=== PATIENT | female | born 1945 | race Caucasian/White ===

== ENCOUNTER 2016-04-25 10:48 | Inpatient (IN) ==
--- NOTE | 2016-04-25 11:00 | Emergency Department Note ---
Disposition Clinical Impression: Acute kidney injury Congestive heart failure Qualifiers: Congestive heart failure type: unspecified congestive heart failure type Congestive heart failure chronicity: acute Qualified Code(s): I50.9 - Heart failure, unspecified Chest pain Qualifiers: Chest pain type: unspecified Qualified Code(s): R07.9 - Chest pain, unspecified Disposition: Admitted As Inpatient Condition: Fair Referrals: Polina Crawford MD [Primary Care Provider] - Forms: ED Satisfaction Letter Time of Disposition: 12:37 SOB HPI - General Chief Complaint: ED Shortness of Breath/Dyspnea Stated Complaint: NICANOR, edema Time Seen by Provider: 04/25/16 10:55 Source: patient Limitations: no limitations Nursing Notes Reviewed: Yes Vital Signs Reviewed: Yes - History of Present Illness 70-year-old who comes in complaining of increasing shortness of breath for the last couple of days. The patient has had some left-sided chest discomfort intermittently. She has noted increase in her weight and swelling of her lower extremities. The patient states he has not had any recent cardiac evaluation. Pt Subjective Complaint: shortness of breath Onset (ago): day(s) Context: recent illness Severity: moderate Consistency/Duration: constant Improves with: nothing Worsens with: exertion Known history of: congestive heart failure Associated symptoms: Reports: chest pain Cough present: Yes Cough Description: Involuntary Cough Frequency: Intermittent - Related Data Home Medications Medication Instructions Recorded Confirmed Albuterol Sulfate [Proair HFA] 2 puff IH Q4HR 12/18/14 12/18/14 Aspirin Enteric Coated [Aspirin EC] 81 mg PO QAM 12/18/14 12/18/14 Atorvastatin [Lipitor] 40 mg PO QPM 12/18/14 12/18/14 Budesonide/Formoterol 160/4.5 2 puff IH BID 12/18/14 12/18/14 [Symbicort] Cholecalciferol (Vitamin D3) 2,000 unit PO QAM 12/18/14 12/18/14 [Vitamin D] Diltiazem CD (24hr) [Cardizem CD] 240 mg PO QAM 12/18/14 12/18/14 Hydrochlorothiazide [Microzide] 12.5 mg PO QAM 12/18/14 12/18/14 Insulin Glargine,Hum.rec.anlog 50 unit SQ HS 12/18/14 12/18/14 [Lantus Solostar] Insulin Glargine,Hum.rec.anlog 60 unit SQ QAM 12/18/14 12/18/14 [Lantus Solostar] Insulin LISPRO [Humalog Kwikpen] 45 - 50 unit SQ BIDWM 12/18/14 12/18/14 Labetalol [Trandate] 100 mg PO QAM 12/18/14 12/18/14 Labetalol [Trandate] 200 mg PO HS 12/18/14 12/18/14 Montelukast [Singulair] 10 mg PO QPM 12/18/14 12/18/14 SitaGLIPtin [Januvia] 50 mg PO QPM 12/18/14 12/18/14 Previous Rx's Medication Instructions Recorded Levofloxacin [Levaquin] 250 mg PO DAILY #7 tablet 12/20/14 Allergies Allergy/AdvReac Type Severity Reaction Status Date / Time acetaminophen [From Percocet] AdvReac Nausea Verified 04/25/16 10:54 hydrocodone AdvReac Nausea Verified 04/25/16 10:54 Oxycodone [From Percocet] AdvReac Nausea Verified 04/25/16 10:54 propoxyphene [From Darvon] AdvReac Nausea Verified 04/25/16 10:53 Sulfa (Sulfonamide AdvReac Nausea Verified 04/25/16 10:53 Antibiotics) Constitutional: Denies: fever, chills, weakness, weight change Eyes: Denies: eye pain, eye discharge, vision change ENT ED: Denies: ear pain, throat pain, dental pain, hearing loss, epistaxis, congestion, dysphagia Cardiovascular: Reports: chest pain, dyspnea on exertion. Denies: palpitations , edema, syncope Respiratory: Reports: dyspnea. Denies: cough, wheezes, hemoptysis, stridor Gastrointestinal: Denies: abdominal pain, nausea, vomiting, diarrhea, constipation, hematemesis, melena, hematochezia Genitourinary: Denies: dysuria, frequency, hematuria, discharge Musculoskeletal: Denies: back pain, neck pain, arthralgia, myalgia Integumentary: Denies: rash, abrasion, lesions Neurological: Denies: headache, weakness, numbness, paresthesias, confusion, abnormal gait, vertigo Psychiatric: Denies: anxiety, depression, suicidal thoughts, homicidal thoughts , auditory hallucinations, visual hallucinations Endocrine: Denies: fatigue Hematological/Lymphatic: Denies: easy bleeding, easy bruising Allergic/Immunologic: Denies: facial swelling, urticaria Past Medical History - Past Medical History Medical history: Reports: asthma, CHF, diabetes, hyperlipidemia, hypertension Surgical history: Reports: , hysterectomy Psychiatric history: Reports: no psych history - Social History Smoking Status: Never smoker Smokeless Tobacco Status: No Alcohol use: Reports: rarely Drug use: Reports: none Physical Exam - General Limitations: no limitations General appearance: alert, in no apparent distress - Head Head exam: atraumatic, normocephalic, normal inspection - Eye Eye exam: Present: normal appearance, PERRL, EOMI - ENT ENT exam: normal exam, normal oropharynx, mucous membranes moist - Neck Neck exam: Present: normal inspection, full ROM, trachea midline - Chest Chest inspection: Present: normal inspection, symmetric chest wall rise - Respiratory Respiratory exam: Present: wheezes (Patient will), accessory muscle use, prolonged expiratory phase, other (Diminished) - Cardiovascular Cardiovascular exam: Present: regular rate, normal rhythm, normal heart sounds - Abdominal Exam Abdominal exam: Present: soft, Non-Tender. Absent: tenderness, distention, guarding, rebound, rigidity - Extremities Exam Extremities exam: Present: pedal edema - Expanded Lower Extremity Exam Neurovascular/Tendon exam: Absent: motor deficit, sensory deficit, tendon deficit Gait: not tested/not observed - Back Exam Back exam: Present: normal inspection, full ROM. Absent: tenderness - Neurological Exam Neurological exam: Present: alert, oriented X3 - Psychiatric Psychiatric exam: Present: normal affect, normal mood - Skin Skin exam: Present: warm, dry, intact, normal color Course - Reevaluation(s) Reevaluation #1: 70-year-old with history CHF was had some problems with worsening renal failure and was told not to take as much Lasix as any increasing lower extremity edema and increasing shortness of breath. She also has had some chest discomfort no recent workup of cardiac origin. Workup here shows that she does indeed have some significant peripheral edema her chest x-ray shows mild CHF BNP is slightly elevated. We will admit to rule out his chest pain CHF renal insufficiency. Time: 12:36 - Consultations Consultation #1: Discussed with , admit. Time: 12:35 Vital Signs Temperature 98.6 F 04/25/16 10:50 Pulse Rate 80 04/25/16 10:50 Respiratory Rate 18 04/25/16 10:50 Blood Pressure 155/75 04/25/16 10:50 O2 Sat by Pulse Oximetry 94 L 04/25/16 10:50 Temperature 98.6 F 04/25/16 10:50 Pulse Rate 80 04/25/16 11:03 Respiratory Rate 18 04/25/16 10:50 Blood Pressure 142/67 04/25/16 11:03 O2 Sat by Pulse Oximetry 97 04/25/16 11:03 Oxygen Delivery Oxygen Delivery Nasal Cannula Shortness of Breath/Dyspnea - Lab Data Result diagrams: 04/25/16 11:05 04/25/16 11:05 Lab Results 04/25/16 04/25/16 04/25/16 Range/Units 11:05 11:05 11:05 WBC 10.2 (4.3-11.1) K/mcL RBC 3.40 L (3.82-4.97) M/mcL Hgb 9.3 L (11.5-15.4) g/dL Hct 30.8 L (35.3-44.9) % MCV 90.6 (83.0-100.0) fL MCH 27.4 L (28.0-33.3) pg MCHC 30.2 L (31.6-35.5) g/dL RDW 17.9 H (11.5-14.5) % Plt Count 216 (140-400) K/mcL MPV 10.2 (9.4-12.4) fL Immature Gran % 0.5 (0-4) % Seg Neutrophils % 81.7 % Lymphocytes % 8.8 % Monocytes % 5.8 % Eosinophils % 3.0 % Basophils % 0.2 % Neutrophils # 8.3 (1.6-8.9) K/mcL Lymphocytes # 0.9 (0.6-4.6) K/mcL Monocytes # 0.6 (0.0-1.3) K/mcL Eosinophils # 0.3 (0.0-0.6) K/mcL Basophils # 0.0 (0.0-0.2) K/mcL PT 12.7 H (9.4-12.1) Seconds INR 1.2 APTT 44.5 H (26.0-36.0) Seconds Sodium 142 (136-145) mEq/L Potassium 4.8 H (3.5-4.5) mEq/L Chloride 109 (98-109) mEq/L Carbon Dioxide 23 (19-29) mEq/L BUN 51 H (7-20) mg/dL Creatinine 2.77 H (0.57-1.11) mg/dL Est GFR ( Amer) 20 L (> 60) Est GFR (Non-Af Amer) 17 L (> 60) BUN/Creatinine Ratio 18 (6-26) Glucose 137 H (70-99) mg/dL Calculated Osmolality 310 H (280-300) Calcium 9.2 (8.6-10.8) mg/dL Troponin I (0-0.03) ng/mL B-Natriuretic Peptide (0-100) pg/mL Urine Color (Yellow) Urine Clarity (Clear) Urine pH (5.0-8.0) pH Units Ur Specific Archer (1.010-1.025) Urine Protein (Neg-Trace) mg/dL Urine Glucose (UA) (Normal) mg/dL Urine Ketones (Negative) mg/dL Urine Blood (Negative) Urine Nitrite (Negative) Urine Bilirubin (Negative) Urine Urobilinogen (Normal) mg/dL Ur Leukocyte Esterase (Negative) Urine Microscopic RBC (0-3) per hpf Urine Microscopic WBC (0-3) per hpf Ur Squamous Epith Cells (None-Few) per lpf Urine Bacteria (None-Few) per hpf Hyaline Casts (None-Few) per lpf Ur Culture Indicated? (NO) 04/25/16 04/25/16 04/25/16 Range/Units 11:05 11:05 11:38 WBC (4.3-11.1) K/mcL RBC (3.82-4.97) M/mcL Hgb (11.5-15.4) g/dL Hct (35.3-44.9) % MCV (83.0-100.0) fL MCH (28.0-33.3) pg MCHC (31.6-35.5) g/dL RDW (11.5-14.5) % Plt Count (140-400) K/mcL MPV (9.4-12.4) fL Immature Gran % (0-4) % Seg Neutrophils % % Lymphocytes % % Monocytes % % Eosinophils % % Basophils % % Neutrophils # (1.6-8.9) K/mcL Lymphocytes # (0.6-4.6) K/mcL Monocytes # (0.0-1.3) K/mcL Eosinophils # (0.0-0.6) K/mcL Basophils # (0.0-0.2) K/mcL PT (9.4-12.1) Seconds INR APTT (26.0-36.0) Seconds Sodium (136-145) mEq/L Potassium (3.5-4.5) mEq/L Chloride (98-109) mEq/L Carbon Dioxide (19-29) mEq/L BUN (7-20) mg/dL Creatinine (0.57-1.11) mg/dL Est GFR ( Amer) (> 60) Est GFR (Non-Af Amer) (> 60) BUN/Creatinine Ratio (6-26) Glucose (70-99) mg/dL Calculated Osmolality (280-300) Calcium (8.6-10.8) mg/dL Troponin I 0.01 (0-0.03) ng/mL B-Natriuretic Peptide 148 H (0-100) pg/mL Urine Color Yellow (Yellow) Urine Clarity Cloudy A (Clear) Urine pH 6.0 (5.0-8.0) pH Units Ur Specific Archer 1.011 (1.010-1.025) Urine Protein 100 H (Neg-Trace) mg/dL Urine Glucose (UA) Normal (Normal) mg/dL Urine Ketones Negative (Negative) mg/dL Urine Blood Small H (Negative) Urine Nitrite Negative (Negative) Urine Bilirubin Negative (Negative) Urine Urobilinogen Normal (Normal) mg/dL Ur Leukocyte Esterase Trace H (Negative) Urine Microscopic RBC 5-15 H (0-3) per hpf Urine Microscopic WBC 5-15 H (0-3) per hpf Ur Squamous Epith Cells Many H (None-Few) per lpf Urine Bacteria None Seen (None-Few) per hpf Hyaline Casts None Seen (None-Few) per lpf Ur Culture Indicated? YES A (NO) - EKG Data EKG attestation: Yes I reviewed and interpreted this EKG. EKG shows normal: Reports: sinus rhythm Rate: Reports: normal Rhythm: Reports: NSR Interpretation: Reports: no acute changes
[2016-04-25 11:26] LABS: Basophils % 0.2 %; Eosinophils # 0.3 K/mcL (0.0-0.6); Hematocrit 30.8 % (35.3-44.9); Hemoglobin 9.3 g/dL (11.5-15.4); Immature Granulocytes % 0.5 % (0-4); Lymphocytes # 0.9 K/mcL (0.6-4.6); Lymphocytes % 8.8 %; Mean Corpuscular HGB Conc 30.2 g/dL (31.6-35.5); Mean Corpuscular Hemoglobin 27.4 pg (28.0-33.3); Mean Corpuscular Volume 90.6 fL (83.0-100.0); Mean Platelet Volume 10.2 fL (9.4-12.4); Monocytes # 0.6 K/mcL (0.0-1.3); Monocytes % 5.8 %; Neutrophils # 8.3 K/mcL (1.6-8.9); Platelet Count 216 K/mcL (140-400); Red Cell Distribution Width 17.9 % (11.5-14.5); Segmented Neutrophils % 81.7 %
[2016-04-25 11:32] LABS: INR 1.2; Prothrombin Time 12.7 Seconds (9.4-12.1)
[2016-04-25 11:35] LABS: Activated Partial Thrombo Time 44.5 Seconds (26.0-36.0)
[2016-04-25 11:37] LABS: Calcium 9.2 mg/dL (8.6-10.8); Potassium 4.8 mEq/L (3.5-4.5)
[2016-04-25 11:51] LABS: Bilirubin,Urine Negative (Negative); Blood,Urine Small (Negative); Clarity,Urine Cloudy (Clear); Color,Urine Yellow (Yellow); Glucose,Urine (UA) Normal (Normal); Ketones,Urine Negative (Negative); Leukocyte Esterase,Urine Trace (Negative); Nitrite,Urine Negative (Negative); Protein,Urine 100 mg/dL (Neg-Trace); Specific Gravity,Urine 1.011 (1.010-1.025); Urobilinogen,Urine Normal (Normal)
[2016-04-25 11:55] LABS: Bacteria,Urine None Seen per hpf (None-Few); Hyaline Casts,Urine None Seen per lpf (None-Few); Squamous Epithelial Cell,Urine Many per lpf (None-Few)
[2016-04-25] MEDS ORDERED: Furosemide 40 MG/4 ML VIAL IVP ONE (12:37)
[2016-04-25] MEDS ORDERED: Naloxone 0.4 MG/ML INJ IVP PRN (13:22)
[2016-04-25] MEDS ORDERED: Acetaminophen 325 MG TABLET PO PRN (13:22)
[2016-04-25] MEDS ORDERED: Dextrose Gel 15 GM PO PRN ×2 (13:29)
[2016-04-25] MEDS ORDERED: *HR* Dextrose 50 % in Water (Syg) 50 ML SYRINGE IVP PRN (13:29)
[2016-04-25] MEDS ORDERED: D5% in Water 1,000 ML IV PRN (13:29)
[2016-04-25 13:54] LABS: Hemoglobin A1C 6.7 %
--- NOTE | 2016-04-25 13:58 | Internal Med History&Physical ---
<Lucrecia Oliveros - Last Filed: 04/25/16 14:37> Date of Encounter: 04/25/16 Time of Encounter: 13:48 Assessment and Plan (1) Acute on chronic diastolic (congestive) heart failure Current visit: Yes Status: Acute Patient with worsening cough, shortness of breath since Thursday. She is edematous, and notes the swelling has been worsening over the last several weeks. CXR shows mild pulmonary edema and cardiomegaly. Last echo 12/18/14 showed Moderate left ventricle diastolic dysfunction with EF of 60%. takes 20mg lasix po daily. Will gently diurese with 40mg lasix IVP daily titrate O2 to O2 sat > 92% Bipap at night and when sleeping (patient has Bipap at home for sleeping) echocardiogram (2) Acute on chronic kidney failure Current visit: Yes Status: Acute Cr 2.77, up from previous value of 2.31 in 11/2014. She follows with Dr. Flores. Consulted Dr. Flores. Avoid NSAIDs (3) Chest pain Current visit: No Status: Acute Patient reports pain exacerbated when taking a deep breath and is similar to pain she had with previous episode of CHF. EKG with NSR. Initial troponin negative. Will have continous monitor technician and trend troponins. Qualifiers: Chest pain type: chest pain on breathing Qualified Code(s): R07.1 - Chest pain on breathing (4) Asthma Current visit: Yes Status: Acute Continue home doses of Singulair and budesonide/formoterol Duonebs scheduled QID Albuterol nebulizer Q4hr PRN Qualifiers: Asthma severity: unspecified severity Asthma complication type: uncomplicated Qualified Code(s): J45.909 - Unspecified asthma, uncomplicated (5) Type 2 diabetes mellitus Current visit: Yes Status: Acute diabetic diet check blood sugar ACHS basal insulin ordered per body weight moderate sliding scale correction dose ACHS Hbg A1c ordered hypoglycemic protocol Has high insulin requirements at home, but with CKD, monitor blood sugars to assess need for adjustment in regimen. Qualifiers: Diabetes mellitus complication status: with kidney complications Diabetes mellitus complication detail: with chronic kidney disease Diabetes mellitus extermination inspector insulin use: with fdc use Chronic kidney disease stage: stage 4 (severe) Qualified Code(s): E11.22 - Type 2 diabetes mellitus with diabetic chronic kidney disease; N18.4 - Chronic kidney disease, stage 4 (severe); Z79.4 - snf (current) use of insulin (6) Hypertension Current visit: No Status: Chronic Continue home doses of labetalol and diltiazem Qualifiers: Hypertension type: essential hypertension Qualified Code(s): I10 - Essential (primary) hypertension (7) DVT prophylaxis Current visit: Yes Status: Acute encourage ambulation anti-embolic stockings 5,000u heparin SQ BID Internal Medicine - H&P: HPI Chief complaint: shortness of breath Admitted From: Emergency Dept Plans for Post Hospital Care: Home History of present illness: Ms. Bazan is a 70 year old female with history of chronic diastolic congestive heart failure, htn, type 2 diabetes, asthma, and chronic kidney disease, who presented to the ED this morning complaining of shortness of breath and left sided chest pain. She states the chest pain is similar to what it felt like last year when she had CHF, and points to her left side. She states it is aggravated when she takes a deep breath. She reports she noted her legs have been swelling more in the last few weeks, and she started coughing on Thursday of this week. Initially the cough was productive of white sputum, but reports today it turned yellow. She also reports she has been feeling more and more short of breath since Thursday. She reports her lasix dose was decreased a month or two ago from 40mg to 20mg due to concerns about her kidney function. Work up in the ED was significant for creatinine of 2.77, up from her last value in of 2.31. BNP was 148, up from 11/2014 value of 96. CXR showed mild pulmonary edema and cardiomegaly. EKG showed NSR, and troponin was negative at 0.01. On exam, she is alert and oriented, in no distress, has BLE +3 edema. Heart has regular rate and rhythm. Lungs with mild expiratory wheeze. Past Med Surg Social Fam HX - Past Medical History Medical history: asthma, CHF, diabetes, hyperlipidemia, hypertension, renal disease Psychiatric history: no psych history - Past Surgical History Surgical History: , knee replacement - Social History Smoking Status: Never smoker Smokeless Tobacco Status: No Alcohol use: rarely Drug use: none - Family History Mother Family Member Ethnicity: Non- Living Status: Hx Family Cardiac Disorders: Yes Hx Family Respiratory Disorders: No Hx Family Cancer: Yes Hx Family GI Disorders: No Hx Family Endocrine Disorder: No Hx Family Neuromuscular Disorders: No Hx Family Neurologic Disorders: No Hx Family HEENT Disorders: No Hx Family Autoimmune Disorders: No Internal Medicine - H&P: Meds Albuterol Sulfate [Proair HFA] 2 puff IH Q4HR 12/18/14 [History] Aspirin Enteric Coated [Aspirin EC] 81 mg PO QAM 12/18/14 [History] Atorvastatin [Lipitor] 40 mg PO QPM 12/18/14 [History] Budesonide/Formoterol 160/4.5 [Symbicort] 2 puff IH BID 12/18/14 [History] Cholecalciferol (Vitamin D3) [Vitamin D] 2,000 unit PO QAM 12/18/14 [History] Diltiazem CD (24hr) [Cardizem CD] 240 mg PO QAM 12/18/14 [History] Insulin Glargine,Hum.rec.anlog [Lantus Solostar] 48 unit SQ HS 12/18/14 [History ] Insulin Glargine,Hum.rec.anlog [Lantus Solostar] 50 unit SQ QAM 12/18/14 [ History] Insulin LISPRO [Humalog Kwikpen] 32 - 50 unit SQ BIDWM 12/18/14 [History] Labetalol [Trandate] 100 mg PO QAM 12/18/14 [History] Labetalol [Trandate] 200 mg PO 12/18/14 [History] Montelukast [Singulair] 10 mg PO QPM 12/18/14 [History] SitaGLIPtin [Januvia] 50 mg PO QPM 12/18/14 [History] Ferrous Sulfate [Iron] 325 mg PO QAM 04/25/16 [History] Furosemide [Lasix] 20 mg PO DAILY 04/25/16 [History] Vit A/Vit C/Vit E/Zinc/Copper [Preservision Areds Tablet] 1 tab PO QAM 04/25/16 [History] Allergies acetaminophen [From Percocet] Adverse Reaction (Verified 04/25/16 10:54) Nausea hydrocodone Adverse Reaction (Verified 04/25/16 10:54) Nausea Oxycodone [From Percocet] Adverse Reaction (Verified 04/25/16 10:54) Nausea propoxyphene [From Darvon] Adverse Reaction (Verified 04/25/16 10:53) Nausea Sulfa (Sulfonamide Antibiotics) Adverse Reaction (Verified 04/25/16 10:53) Nausea All Systems PM: A 10-system review of systems was performed and is negative for pertinent findings except as documented above in the HPI. - Constitutional Constitutional: weight gain, no chills, no fever(s), no night sweats - EENT Eyes: no change in vision, no discharge, no pain, no photophobia Nose, mouth and throat: no dysphagia, no nasal discharge, no neck pain, no sore throat - Cardiovascular Cardiovascular ROS IM: chest pain, dyspnea, no diaphoresis, no lightheadedness, no palpitations, no syncope - Respiratory Respiratory: cough, dyspnea, dyspnea on exertion, pain on inspiration, change in phlegm color, no hemoptysis - Gastrointestinal Gastrointestinal: no abdominal pain, no diarrhea, no hematemesis, no hematochezia, no melena, no nausea, no vomiting - Genitourinary Genitourinary: no change in urinary stream, no dysuria, no flank pain, no hematuria - Musculoskeletal Musculoskeletal ROS IM: no numbness, no tingling - Integumentary Integumentary IM: no rash, no unusual bruising - Neurological Neurological ROS: no confusion, no convulsions, no focal weakness, no numbness, no tingling, no tremor(s) - Hematologic/Lymphatic Hematologic/Lymphatic: no easy bruising - Constitutional Vitals: Temp Pulse Resp BP Pulse Ox 98.6 F 75 22 168/70 95 04/25/16 10:50 04/25/16 13:14 04/25/16 13:14 04/25/16 13:14 04/25/16 13:14 General appearance: Present: A&O X 3, pleasant, no acute distress - Head Head exam: Present: atraumatic, normocephalic - Eye Eye exam: Present: PERRL, conjuntiva pink, sclera anicteric Pupils: Present: PERRL - Neck Neck exam general surgery: Present: supple, trachea midline. Absent: lymphadenopathy - Respiratory Respiratory exam: Present: wheezes. Absent: accessory muscle use, rales, respiratory distress, rhonchi - Cardiovascular Cardiovascular exam: Present: RRR, +S1, +S2. Absent: diastolic murmur, gallop, rubs, systolic murmur - GI/Abdominal GI/Abdominal exam: Present: normal bowel sounds, soft, no peritoneal signs. Absent: distended, tenderness - Extremities Exam Extremities exam: Present: pedal edema (+3 BLE edema), warm, radial pulses palpable and symetrical. Absent: calf tenderness, cyanotic - Neurological Exam Neurological exam: Present: CN II-XII intact, oriented X3, no focal deficits. Absent: facial droop, speech deficit - Skin Skin exam: Present: dry, intact Internal Med - H&P Results - Labs CBC & Chem 7: 04/25/16 11:05 04/25/16 11:05 <Earnest Rodriguez - Last Filed: 04/25/16 16:23> Date of Encounter: 04/25/16 Internal Medicine - H&P: HPI History of present illness: Ms. Bazan is a 70 year old female All Systems PM: A 10-system review of systems was performed and is negative for pertinent findings except as documented above in the HPI. - Constitutional Vitals: Temp Pulse Resp BP Pulse Ox 97.7 F 66 17 162/75 93 L 04/25/16 14:15 04/25/16 14:15 04/25/16 14:15 04/25/16 14:15 04/25/16 14:15 Internal Med - H&P Results - Labs CBC & Chem 7: 04/25/16 11:05 04/25/16 11:05 - Attending Attestation I have seen and examined this patient independently. I have discussed the case with the Nurse Practitioner, Lucrecia Oliveros. I agree with the data gathering in the HPI, physical examination findings, assessment and plan as documented by our CUTTER GRINDER. CKD with fluid overload, likely due to increased intake of fluids at home. Will give lasix, obtain echo, resume home meds and request nephro eval. Fluid restriction diet. Continue with bipap for MAGUI. The plan of care was discussed in detail with the patient and family member, they expressed understanding.
[2016-04-25] MEDS ORDERED: Albuterol 2.5 MG/3 ML NEBULIZER IH PRN (14:22)
[2016-04-25] MEDS: Insulin LISPRO 300 UNITS/3 ML VIAL SQ SCH ×2 (17:16→20:50)
[2016-04-25] MEDS: Ipratropium/Albuterol Neb 3 ML IH SCH ×2 (17:32→22:06)
[2016-04-25] MEDS: *HR* Heparin 5,000 UNIT/ML VIAL SQ SCH (18:14)
[2016-04-25] MEDS: Furosemide 20 MG/2 ML VIAL IVP ONE ×2 (20:46→20:48)
[2016-04-25] MEDS: Insulin DETEMIR 100 UNIT/ML X5UNITS SQ SCH (20:46)
[2016-04-25] MEDS: Famotidine 20 MG TABLET PO SCH (20:46)
[2016-04-25] MEDS: Budesonide/Formoterol 160/4.5 MDI IH SCH (22:06)
[2016-04-26 04:36] LABS: Basophils % 0.2 %; Eosinophils # 0.4 K/mcL (0.0-0.6); Eosinophils % 3.4 %; Hematocrit 29.1 % (35.3-44.9); Immature Granulocytes % 0.4 % (0-4); Lymphocytes # 0.9 K/mcL (0.6-4.6); Lymphocytes % 8.8 %; Mean Corpuscular HGB Conc 30.9 g/dL (31.6-35.5); Mean Corpuscular Hemoglobin 27.8 pg (28.0-33.3); Mean Corpuscular Volume 89.8 fL (83.0-100.0); Mean Platelet Volume 10.6 fL (9.4-12.4); Monocytes # 0.7 K/mcL (0.0-1.3); Monocytes % 6.4 %; Neutrophils # 8.4 K/mcL (1.6-8.9); Platelet Count 244 K/mcL (140-400); Red Blood Count 3.24 M/mcL (3.82-4.97); Red Cell Distribution Width 17.6 % (11.5-14.5); Segmented Neutrophils % 80.8 %
[2016-04-26 04:50] LABS: Calcium 9.2 mg/dL (8.6-10.8); Potassium 4.8 mEq/L (3.5-4.5)
[2016-04-26] MEDS: Ipratropium/Albuterol Neb 3 ML IH SCH ×4 (05:09→22:04)
[2016-04-26] MEDS: *HR* Heparin 5,000 UNIT/ML VIAL SQ SCH ×2 (05:32→17:35)
[2016-04-26] MEDS: Aspirin Enteric Coated 81 MG Tablet PO SCH (08:44)
[2016-04-26] MEDS: Diltiazem CD (24hr) 240 MG CAPSULE PO SCH (08:44)
[2016-04-26] MEDS: Cholecalciferol (D-3) 1,000 UNIT TABLET PO SCH (08:44)
[2016-04-26] MEDS: Famotidine 20 MG TABLET PO SCH ×2 (08:45→20:57)
[2016-04-26] MEDS: Insulin LISPRO 300 UNITS/3 ML VIAL SQ SCH ×4 (08:47→20:56)
[2016-04-26] MEDS ORDERED: Furosemide 40 MG/4 ML VIAL IVP SCH (09:00)
--- NOTE | 2016-04-26 09:35 | ECHO - Doppler Report ---
Echocardiogram Name: Ryland Bazan Date of Study: 04/25/2016 Date: 1945 Ht: 62.0 in Medical Record#: [id number] Age: 70 Wt: 245.0 lb Gender: Female BSA: 2.08 Order #: [id number] Location: [facility] Room #: [id number] Reading Physician: Tor Scott MD, [facility] Electrician Assistant: Matilda Pate Ordering Physician: Lucrecia Oliveros CNP Primary Physician: None Indications: Acute on chronic heart failure Impressions: Normal left ventricular size and systolic function, LVEF 55-60%. Moderate left ventricular diastolic dysfunction. Mildly dilated right ventricle with normal systolic function. Mildly dilated left atrium. Mildly dilated right atrium. Mild mitral regurgitation. Mild pulmonary hypertension. Estimated RVSP = 36-41 mmHg. Left Ventricular Wall Motion: Rest Echo Findings All wall segments showed normal motion. Findings: Study Quality * Suboptimal echo windows. ECG Findings * Normal sinus rhythm. Left Ventricle * Normal left ventricular size and systolic function, LVEF 55-60%. * Normal LV wall thickness. * Moderate left ventricular diastolic dysfunction. Right Ventricle * Mildly dilated right ventricle with normal systolic function. Left Atrium * Mildly dilated left atrium. Right Atrium * Mildly dilated right atrium. Aorta * Normally sized aortic root. Pericardium * There is no pericardial effusion present. IVC * The IVC is mildly dilated with normal inspiratory collapse. Aortic Valve * Aortic valve not well visualized. Appears trileaflet with mild sclerosis. * No aortic stenosis. * No aortic regurgitation. Mitral Valve * Mild mitral annular calcification * No mitral stenosis. * Mild mitral regurgitation. Tricuspid Valve * Normal tricuspid valve structure. * No tricuspid stenosis. * Trace tricuspid regurgitation. * Mild pulmonary hypertension. Estimated RVSP = 36-41 mmHg. Pulmonic Valve * Pulmonic valve not well visualized. * No pulmonic stenosis. * Trace pulmonic regurgitation. History Hypertension Diabetes Hypercholesteremia Congestive Heart Failure 12/18/2014 a Previous Echo was performed. Measurements: BP: 162/ 75 2D Normal Values RVIDd: 4.60 cm IVSd: 1.00 cm 0.6 - 1.0 cm LVIDd: 5.20 cm 3.7 - 5.6 cm LVPWd: 1.00 cm 0.6 - 1.1 cm LVIDs: 3.60 cm 1.5 - 3.6 cm AO: 2.80 cm < 4.0 cm %FS: 30.80 cm >25 % LA volume: 75 Mitral Valve Peak E:1.06 m/sec Peak A:.69 m/sec E/A Ratio:1.5 Peak E' Lat Kiran:8.29 cm/s Peak E' Med Kiran:5.07 cm/s E/E' Lat Ratio:12.8 E/E' Med Ratio:20.9 Tricuspid Valve TV Regurg Peak Grad: 31.00mmHg TV Regurg Peak Kiran: 2.76m/sec Updated by Tor Scott MD, [facility] on 04/26/2016 9:27:34 AM electronically signed on 04/26/2016 9:32:16 AM with status of Final Wall Motion Smith: 1=Normal, 2=Hypokinesis, 3=Akinesis, 4=Dyskinesis, 5=Aneurysmal, 6=Hyperkinetic, X=Not Visualized (Blank)=Missing
[2016-04-26] MEDS: Budesonide/Formoterol 160/4.5 MDI IH SCH ×2 (10:43→22:04)
--- NOTE | 2016-04-26 11:18 | Nephrology Consult Note ---
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 This is mostly due to cardiorenal syndrome from Diastolic heart failure but also partly from rapid diuresis on adm I think her shortness of breath may have been more from asthma exacerbation , though there was certainly component of CHF. Suggest hold off any further diuretics today, and restart from tomorrow or day after with lasix 40 mg po daily. I did not see any kidney imaging in [facility] past imaging. She needs US of kidney to r/o obstructive uropathy She has UTI per UA , obstructive uropathy with UTI can exacerbate CKD (2) Congestive heart failure Current Visit: Yes Status: Acute Fluid overload was not that much, so needs to hold off lasix for today. Though PE was ruled out last adm , PE needs to be ruled out again in view of pleuritic chest pain Qualifiers: Congestive heart failure type: unspecified congestive heart failure type Congestive heart failure chronicity: unspecified congestive heart failure chronicity Qualified Code(s): I50.9 - Heart failure, unspecified (3) Asthma Current Visit: Yes Status: Acute No whhezing now. Continue present meds Qualifiers: Asthma severity: unspecified severity Asthma complication type: uncomplicated Qualified Code(s): J45.909 - Unspecified asthma, uncomplicated (4) Hypertension Current Visit: No Status: Chronic Pt is on diltiazem and labetalol. Labetalol is non specifc beta duran and can cause bronchospasm. Suggest switch to Metoprolol and hydralazine Qualifiers: Hypertension type: secondary to other renal disorders Qualified Code(s): I15.1 - Hypertension secondary to other renal disorders; N28.89 - Other specified disorders of kidney and ureter History of Present Illness - Reason for Consult Consult date: 04/26/16 Chronic Kidney Disease Requesting physician: Chao Burks - Chief Complaint Pt admitted for shortness of breath noted to have moderately high serum cr - History of Present Illness Ms. Bazan is a 70 year old female with history of chronic diastolic congestive heart failure, htn, type 2 diabetes, asthma, and chronic kidney disease, who presented to the ED last night complaining of shortness of breath and left sided chest pain. She stated the chest pain iwa similar to what it felt like last year when she had CHF, and points to her left side. She states it is aggravated when she takes a deep breath. She reports she noted her legs have been swelling more in the last few weeks, and she started coughing on Thursday of this week. Initially the cough was productive of white sputum, but reports today it turned yellow. She also reports she has been feeling more and more short of breath since Thursday. She reports her lasix dose was decreased a month or two ago from 40mg to 20mg due to concerns about her kidney function. Work up in the ED was significant for creatinine of 2.77, up from her last value in 11/2014 of 2.31. BNP was 148, up from 11/2014 value of 96. CXR showed mild pulmonary edema and cardiomegaly. EKG showed NSR, and troponin was negative at 0.01. On exam at admission she was alert and oriented, in no distress, has BLE +3 edema. Heart had regular rate and rhythm. Lungs with mild expiratory wheeze. No one else in famy with URI but friends are. Got flu vaccine in Jan. No h/o smoking She was treated with one dose of IV lasix 40 mg and diuresed well. Also treated with her asthma meds. Feeling better. Leg edema much less.Wants to go home Per pt she was also being treated for anemia due to CKD and had been on Aranesp every other week. Her hgb came u from around 8 to around 9.[address] No big drop in hgb. Takes iron also She drinks over 3 L of water every day but denies using any table salt. can not be sure if uses salty food since they are abundant She never had a target/dry wt set up but wants to set up one so she can monitor and alert physician if wt going up above target wt Past Med Surg Social Fam HX - Past Medical History Medical history: asthma, CHF, diabetes, hyperlipidemia, hypertension, renal disease Psychiatric history: no psych history - Past Surgical History Surgical History: , knee replacement - Social History Smoking Status: Never smoker Smokeless Tobacco Status: No Alcohol use: rarely Drug use: none - Family History Mother Family Member Ethnicity: Non- Living Status: Hx Family Cardiac Disorders: Yes Hx Family Respiratory Disorders: No Hx Family Cancer: Yes Hx Family GI Disorders: No Hx Family Endocrine Disorder: No Hx Family Neuromuscular Disorders: No Hx Family Neurologic Disorders: No Hx Family HEENT Disorders: No Hx Family Autoimmune Disorders: No Medications and Allergies Albuterol Sulfate [Proair HFA] 2 puff IH Q4HR 12/18/14 [History] Aspirin Enteric Coated [Aspirin EC] 81 mg PO QAM 12/18/14 [History] Atorvastatin [Lipitor] 40 mg PO QPM 12/18/14 [History] Budesonide/Formoterol 160/4.5 [Symbicort] 2 puff IH BID 12/18/14 [History] Cholecalciferol (Vitamin D3) [Vitamin D] 2,000 unit PO QAM 12/18/14 [History] Diltiazem CD (24hr) [Cardizem CD] 240 mg PO QAM 12/18/14 [History] Insulin Glargine,Hum.rec.anlog [Lantus Solostar] 48 unit SQ HS 12/18/14 [History ] Insulin Glargine,Hum.rec.anlog [Lantus Solostar] 50 unit SQ QAM 12/18/14 [ History] Insulin LISPRO [Humalog Kwikpen] 32 - 50 unit SQ BIDWM 12/18/14 [History] Labetalol [Trandate] 100 mg PO QAM 12/18/14 [History] Labetalol [Trandate] 200 mg PO HS 12/18/14 [History] Montelukast [Singulair] 10 mg PO QPM 12/18/14 [History] SitaGLIPtin [Januvia] 50 mg PO QPM 12/18/14 [History] Ferrous Sulfate [Iron] 325 mg PO QAM 04/25/16 [History] Furosemide [Lasix] 20 mg PO DAILY 04/25/16 [History] Vit A/Vit C/Vit E/Zinc/Copper [Preservision Areds Tablet] 1 tab PO QAM 04/25/16 [History] Allergies acetaminophen [From Percocet] Adverse Reaction (Verified 04/25/16 10:54) Nausea hydrocodone Adverse Reaction (Verified 04/25/16 10:54) Nausea Oxycodone [From Percocet] Adverse Reaction (Verified 04/25/16 10:54) Nausea propoxyphene [From Darvon] Adverse Reaction (Verified 04/25/16 10:53) Nausea Sulfa (Sulfonamide Antibiotics) Adverse Reaction (Verified 04/25/16 10:53) Nausea Review of Systems All Systems: reviewed and no additional remarkable complaints except as stated Constitutional: as per HPI, weight gain Nose, mouth and throat: as per HPI Breasts: as per HPI Cardiovascular: as per HPI, chest pain, dyspnea, dyspnea on exertion, edema, pedal edema Respiratory: as per HPI, cough, dyspnea, dyspnea on exertion, wheezing, chest congestion, excessive phlegm production, change in phlegm color Gastrointestinal: as per HPI Genitourinary Female: as per HPI Menstruation: as per HPI Musculoskeletal: as per HPI Integumentary: as per HPI Neurological: as per HPI Psychiatric: as per HPI Endocrine: as per HPI Hematologic/Lymphatic: as per HPI Allergic/Immunologic: as per HPI, wheezing Exam - Vital Signs Vital signs: Initial Vital Signs Temp Pulse Resp BP Pulse Ox 98.6 F 80 18 155/75 94 L 04/25/16 10:50 04/25/16 10:50 04/25/16 10:50 04/25/16 10:50 04/25/16 10:50 Vital Signs - Last 8 Hours Temp Pulse Resp BP Pulse Ox 04/26/16 08:28 97.0 F L 69 16 152/75 95 04/26/16 05:09 16 99 04/26/16 04:05 98.0 F 65 18 146/68 97 Intake and Output 04/25/16 04/26/16 04/26/16 23:59 07:59 15:59 Intake Total 250 / 250 440 / 440 Output Total 300 / 300 Balance -50 / -50 440 / 440 Intake: Oral 250 / 250 440 / 440 Output: Urine 300 / 300 Other: Meal Breakfast Percent of Meal Consumed 100% Weight 108.32 kg Blood Glucose* 165 127 98 Patient Weight 04/26/16 23:59 Weight 108.32 kg - General Appearance General appearance: well-developed, well-nourished, appears started age, obese EENT: ATNC, PERRL, mucous membranes moist, hearing intact, vision intact Neck: no JVD, no thyromegaly, no carotid bruit, supple Respiratory: no kyphosis, no scoliosis, rhonchi Cardiology: no murmurs, no rub, no gallops, edema, regular rate, regular rhythm , normal S1, normal S2 - Dialysis Access thrill: No bruit: No Gastrointestinal: normoactive bowel sounds, no tenderness, no guarding, no organomegaly, no masses Integumentary: no rash, warm and dry Neurologic: no focal deficit, no asterixis, alert and oriented x3 Musculoskeletal: no deformities, no erythema, no cyanosis, no clubbing Psychiatric: mood/affect appropriate Results - Lab Results 04/26/16 03:53 04/26/16 03:53 Most recent lab results Calcium 9.2 mg/dL (8.6-10.8) 04/26/16 03:53 Consult Discharge Plan - Plan Referrals: Polina Crawford MD [Primary Care Provider] -
[2016-04-26] MEDS: Furosemide 20 MG TABLET PO SCH (12:21)
--- NOTE | 2016-04-26 16:03 | Internal Med Progress Note ---
Date of Encounter: 04/26/16 Time of Encounter: 16:01 - Assessment and plan (1) Acute on chronic diastolic (congestive) heart failure Current Visit: Yes Status: Acute Assessment and plan: Due to worsening renal function ~25% increase in Cr, will decrease lasix to po 20mg daily Chest is clear and patient is not in respiratory distress ECHO report shows LVEF 55-60%, Moderate LVDD, Mild pulm HTN with RVSP 36-41 Changed Labetalol to Metoprolol per nephro recommendation Strict intake/output Fluid restriction Daily weight checks (2) Acute on chronic kidney failure Current Visit: Yes Status: Acute Assessment and plan: Possibly cardio-renal Renal USS with no-obstructing 6mm right renal calculus, no hydropnephrosis UA is contaminated, no UTI symptoms Adjustment to lasix has been made Will trend Creatinine Nephrology following, appreciate input (3) Asthma Current Visit: Yes Status: Chronic Qualifiers: Asthma severity: unspecified severity Asthma complication type: uncomplicated Qualified Code(s): J45.909 - Unspecified asthma, uncomplicated (4) Chest pain Current Visit: Yes Status: Acute Assessment and plan: Pleuritic,patient with cough for about a week. CXR with mild pulmonary congestion Patient is not tachycardic or overtly hypoxic Troponin is negative X3. Will continue to monitor Qualifiers: Chest pain type: unspecified Qualified Code(s): R07.9 - Chest pain, unspecified (5) Type 2 diabetes mellitus Current Visit: Yes Status: Chronic Qualifiers: Diabetes mellitus complication status: with kidney complications Diabetes mellitus complication detail: with chronic kidney disease Diabetes mellitus care home insulin use: with rodent exterminator use Chronic kidney disease stage: stage 4 (severe) Qualified Code(s): E11.22 - Type 2 diabetes mellitus with diabetic chronic kidney disease; N18.4 - Chronic kidney disease, stage 4 (severe); Z79.4 - [facility] (current) use of insulin (6) Anemia Current Visit: No Status: Chronic Qualifiers: Anemia type: other cause Other causes of anemia: chronic disease, kidney Qualified Code(s): N18.9 - Chronic kidney disease, unspecified; D63.1 - Anemia in chronic kidney disease (7) Hypertension Current Visit: No Status: Chronic Assessment and plan: Change labetalol to metoprolol Qualifiers: Hypertension type: secondary to other renal disorders Qualified Code(s): I15.1 - Hypertension secondary to other renal disorders; N28.89 - Other specified disorders of kidney and ureter (8) Morbid obesity with BMI of 40.0-44.9, adult Current Visit: No Status: Chronic - Subjective Interval history: 70 Y/O F admitted for management of diastolic CHF exacerbation and ELIUD on CKD. She is seen at bedside with family, denies new complains - Constitutional Vitals: Temp Pulse Resp BP Pulse Ox 98.0 F 70 16 153/70 94 L 04/26/16 12:27 04/26/16 12:27 04/26/16 12:27 04/26/16 12:27 04/26/16 12:27 General appearance: Present: A&O X 3, pleasant, no acute distress - Head Head exam: Present: atraumatic, normocephalic - Eye Eye exam: Present: PERRL, conjuntiva pink, sclera anicteric Pupils: Present: PERRL - Neck Neck exam general surgery: Present: supple, trachea midline. Absent: lymphadenopathy - Respiratory Respiratory exam: Present: CTAB. Absent: accessory muscle use, rales, rhonchi, wheezes - Cardiovascular Cardiovascular exam: Present: RRR, +S1, +S2. Absent: diastolic murmur, gallop, rubs, systolic murmur - GI/Abdominal GI/Abdominal exam: Present: normal bowel sounds, soft, no peritoneal signs. Absent: distended, tenderness - Extremities Exam Extremities exam: Present: pedal edema Additional comments: Excoriations on both lower extremities bilaterally. - Neurological Exam Neurological exam: Present: CN II-XII intact, oriented X3, no focal deficits. Absent: pronater drift, facial droop, speech deficit - Skin Skin exam: Present: excoriation Internal Medicine: Result - Labs CBC & Chem 7: 04/26/16 03:53 04/26/16 03:53 Labs: Short CBC 04/26/16 Range/Units 03:53 WBC 10.3 (4.3-11.1) K/mcL Hgb 9.0 L (11.5-15.4) g/dL Hct 29.1 L (35.3-44.9) % Plt Count 244 (140-400) K/mcL Neutrophils # 8.4 (1.6-8.9) K/mcL BMP 04/26/16 03:53 Sodium 143 Potassium 4.8 H Chloride 111 H Carbon Dioxide 22 BUN 55 H Creatinine 3.23 H Glucose 114 H Calcium 9.2 Cardiac Enzymes 04/25/16 04/25/16 Range/Units 17:27 22:43 Troponin I 0.01 0.01 (0-0.03) ng/mL - ABG Interpretation ABG results: PT/INR, D-dimer PT 12.7 Seconds (9.4-12.1) H 04/25/16 11:05 - Impressions Impressions Retroperitoneum Ultrasound 04/26/16 13:45 IMPRESSION: No evidence of hydronephrosis bilaterally. Nonobstructing 6 mm right renal calculus. D/ / Wisam Markham MD / Wisam Markham MD Interpreting Provider: Wisam Markham MD Consult Discharge Plan - Plan Referrals: Polina Crawford MD [Primary Care Provider] -
[2016-04-26] MEDS: Insulin DETEMIR 100 UNIT/ML X5UNITS SQ SCH (23:14)
[2016-04-27 04:19] LABS: Basophils % 0.2 %; Eosinophils # 0.4 K/mcL (0.0-0.6); Hemoglobin 8.6 g/dL (11.5-15.4); Immature Granulocytes % 0.3 % (0-4); Lymphocytes # 1.2 K/mcL (0.6-4.6); Lymphocytes % 12.6 %; Mean Corpuscular HGB Conc 29.7 g/dL (31.6-35.5); Mean Corpuscular Volume 91.2 fL (83.0-100.0); Mean Platelet Volume 10.5 fL (9.4-12.4); Monocytes # 0.7 K/mcL (0.0-1.3); Monocytes % 7.2 %; Neutrophils # 7.4 K/mcL (1.6-8.9); Platelet Count 261 K/mcL (140-400); Red Blood Count 3.18 M/mcL (3.82-4.97); Red Cell Distribution Width 17.2 % (11.5-14.5); Segmented Neutrophils % 75.7 %
[2016-04-27 04:37] LABS: Calcium 9.1 mg/dL (8.6-10.8)
[2016-04-27 04:48] LABS: Potassium 5.1 mEq/L (3.5-4.5)
[2016-04-27] MEDS: Ipratropium/Albuterol Neb 3 ML IH SCH ×4 (05:01→22:53)
[2016-04-27] MEDS: *HR* Heparin 5,000 UNIT/ML VIAL SQ SCH ×2 (05:01→17:55)
[2016-04-27] MEDS: Insulin LISPRO 300 UNITS/3 ML VIAL SQ SCH ×4 (08:17→21:18)
[2016-04-27] MEDS: Budesonide/Formoterol 160/4.5 MDI IH SCH ×2 (10:35→22:53)
[2016-04-27] MEDS: Aspirin Enteric Coated 81 MG Tablet PO SCH (10:37)
[2016-04-27] MEDS: Diltiazem CD (24hr) 240 MG CAPSULE PO SCH (10:37)
[2016-04-27] MEDS: Famotidine 20 MG TABLET PO SCH ×2 (10:37→20:23)
[2016-04-27] MEDS: Cholecalciferol (D-3) 1,000 UNIT TABLET PO SCH (10:37)
[2016-04-27] MEDS: Furosemide 20 MG TABLET PO SCH (10:38)
--- NOTE | 2016-04-27 10:44 | Nephrology Progress Note ---
Date of Encounter: 04/27/16 Time of Encounter: 10:42 - Assessment and Plan (1) Acute on chronic kidney failure Current Visit: Yes Status: Acute ELIUD on CKD due to cardiorenal syndrome . No further worsening of kidney fx. Pt diuresed well. It may be worthwhile to hold lasix for a day or two and then restart (2) Congestive heart failure Current Visit: Yes Status: Acute Pt diuresed with IV lasix on adm. Now on small dos eof lasix. Added hydralazine today and switched labetalol to metoprolol Pt's CHF was diastolic in the past but another MUGA or ECHO may be considered to see if she has systolic dys fx as well Qualifiers: Congestive heart failure type: unspecified congestive heart failure type Congestive heart failure chronicity: unspecified congestive heart failure chronicity Qualified Code(s): I50.9 - Heart failure, unspecified (3) Asthma Current Visit: Yes Status: Chronic Breathing much better on bronchodilatory meds Qualifiers: Asthma severity: unspecified severity Asthma complication type: uncomplicated Qualified Code(s): J45.909 - Unspecified asthma, uncomplicated (4) Hypertension Current Visit: No Status: Chronic With stopping labetalol BP is higher. Started on metoprolol but dos eneeds to raised. Also addition of hydralazine will be helpful . It tiny help if pt has sys heartfailure also. Suggest start with 25 mg bid Qualifiers: Hypertension type: secondary to other renal disorders Qualified Code(s): I15.1 - Hypertension secondary to other renal disorders; N28.89 - Other specified disorders of kidney and ureter (5) Urinary tract infection Current Visit: Yes Status: Acute Urine c/s was discarded due to too many organism but in view of kidney stone seen in US exam, leucocyturia and worsened kidney fx, suggest treat empirically with cipro 250 mg bid for 5-7 days Qualifiers: Urinary tract infection type: site unspecified Hematuria presence: with hematuria Qualified Code(s): N39.0 - Urinary tract infection, site not specified; R31.9 - Hematuria, unspecified Subjective Principal diagnosis: ELIUD on CKD Interval history: Pt with ELIUD on Stage 4 CKD due to diabetic nephropathy, admitted with CHF/COPD exacerbation. Now breathing better after diuresis with IV lasix on admand bronchodilator RX Yesterday per our recommendation labetalol was stopped since it is not specific betablocker and can caus bronchoconstriction. Switched to metoprolol now to 25 mg bid. Athletic Team Physician go up on that to 50 mg bid or more as needed for BP. Lasix was reduced since Scr went up. But I think she may need to be off lasix for a day or so and restart at low dose like now Her lungs are clear now and no edema BP is running high today due to stopping labetalol at hefty dose Suggest adding hydralazine 25 mg bid and then raise as needed Pt had US of kidney No hydronephrosis but has one 6 mm nonobstructing kidney stone In view of worsened kidney fx, in situ kidney stone , leucocyturia and inability to get urine c/s possibly short course of cipro 250 mg bid will be helpful Objective - Vital Signs Vital signs: Vital Signs Temp Pulse Resp BP Pulse Ox 04/27/16 07:18 97.8 F 80 15 174/78 91 L 04/27/16 02:38 98.3 F 74 14 150/68 93 L 04/26/16 23:09 97.9 F 73 16 158/65 97 04/26/16 22:04 16 92 L 04/26/16 20:21 171/79 04/26/16 19:20 97.8 F 79 14 181/70 95 04/26/16 16:36 16 88 L 04/26/16 16:14 98.3 F 70 16 156/71 94 L 04/26/16 12:27 98.0 F 70 16 153/70 94 L 04/26/16 10:43 16 93 L Intake and Output 04/26/16 04/27/16 04/27/16 23:59 07:59 15:59 Intake Total 200 / 200 600 / 600 240 / 240 Balance 200 / 200 600 / 600 240 / 240 Intake: Oral 200 / 200 600 / 600 240 / 240 Other: Meal Dinner Breakfast Percent of Meal Consumed 100% 100% Blood Glucose* 144 166 - General Appearance General appearance: Present: well-developed, well-nourished, appears started age , frail EENT: Present: ATNC, PERRL, mucous membranes moist, hearing intact, vision intact Neck: Present: no JVD, no thyromegaly, no carotid bruit, supple Respiratory: Present: no kyphosis, no scoliosis, clear Cardiology: Present: no murmurs, no rub, no gallops, no edema, regular rate, regular rhythm, normal S1, normal S2 thrill: No bruit: No Gastrointestinal: Present: normoactive bowel sounds, no tenderness, no guarding , no organomegaly, no masses Integumentary: Present: no rash, warm and dry Neurologic: Present: no focal deficit, alert and oriented x3 Musculoskeletal: Present: no deformities, no erythema, no cyanosis, no clubbing Psychiatric: Present: mood/affect appropriate - Lab 04/27/16 02:59 04/27/16 02:59 Most recent lab results Calcium 9.1 mg/dL (8.6-10.8) 04/27/16 02:59 - Imaging Kidney/bladder ultrasound: image reviewed Additional Comments: No hydro, presence of small stone Post void residual nl Consult Discharge Plan - Plan Referrals: Polina Crawford MD [Primary Care Provider] -
[2016-04-27 11:38] LABS: Bilirubin,Urine Negative (Negative); Blood,Urine Moderate (Negative); Clarity,Urine Cloudy (Clear); Color,Urine Yellow (Yellow); Glucose,Urine (UA) Normal (Normal); Ketones,Urine Negative (Negative); Leukocyte Esterase,Urine Small (Negative); Nitrite,Urine Negative (Negative); PH,Urine 5.5 pH Units (5.0-8.0); Protein,Urine 100 mg/dL (Neg-Trace); Specific Gravity,Urine 1.013 (1.010-1.025); Urobilinogen,Urine Normal (Normal)
[2016-04-27 11:52] LABS: RBC,Urine 0-3 per hpf (0-3)
[2016-04-27 11:53] LABS: Bacteria,Urine Moderate per hpf (None-Few); Squamous Epithelial Cell,Urine Few per lpf (None-Few)
[2016-04-27] MEDS ORDERED: Ondansetron 4 MG/2 ML VIAL IVP PRN (11:58)
[2016-04-27] MEDS ORDERED: levoFLOXacin 750 MG TABLET PO SCH (16:45)
--- NOTE | 2016-04-27 16:47 | Internal Med Progress Note ---
Date of Encounter: 04/27/16 Time of Encounter: 11:55 - Assessment and plan (1) Acute on chronic diastolic (congestive) heart failure Current Visit: Yes Status: Acute Assessment and plan: Due to worsening renal function ~25% increase in Cr, will hold lasix ECHO report shows LVEF 55-60%, Moderate LVDD, Mild pulm HTN with RVSP 36-41 Increased metoprolol Added hydralazine for better BP control Lasix held today to monitor renal function Will resume a.m if renal function improves Strict intake/output Fluid restriction Daily weight checks (2) Acute on chronic kidney failure Current Visit: Yes Status: Acute Assessment and plan: Possibly cardio-renal Renal USS with no-obstructing 6mm right renal calculus, no hydropnephrosis UA is contaminated, urine culture mixed gillian Repeat has been sent, in lieu of presence of stone, will start on fluoroquinolone Lasix held Will trend Creatinine Nephrology following, appreciate input (3) Urinary tract infection Current Visit: Yes Status: Acute Assessment and plan: As above Qualifiers: Urinary tract infection type: site unspecified Hematuria presence: with hematuria Qualified Code(s): N39.0 - Urinary tract infection, site not specified; R31.9 - Hematuria, unspecified (4) Asthma Current Visit: Yes Status: Chronic Qualifiers: Asthma severity: unspecified severity Asthma complication type: uncomplicated Qualified Code(s): J45.909 - Unspecified asthma, uncomplicated (5) Chest pain Current Visit: Yes Status: Acute Assessment and plan: Pleuritic,patient with cough for about a week. CXR with mild pulmonary congestion Patient is not tachycardic or overtly hypoxic Troponin is negative X3. Will continue to monitor Qualifiers: Chest pain type: unspecified Qualified Code(s): R07.9 - Chest pain, unspecified (6) Type 2 diabetes mellitus Current Visit: Yes Status: Chronic Qualifiers: Diabetes mellitus complication status: with kidney complications Diabetes mellitus complication detail: with chronic kidney disease Diabetes mellitus intermodal truck driver insulin use: with intermodal truck driver use Chronic kidney disease stage: stage 4 (severe) Qualified Code(s): E11.22 - Type 2 diabetes mellitus with diabetic chronic kidney disease; N18.4 - Chronic kidney disease, stage 4 (severe); Z79.4 - termite treater (current) use of insulin (7) Anemia Current Visit: No Status: Chronic Qualifiers: Anemia type: other cause Other causes of anemia: chronic disease, kidney Qualified Code(s): N18.9 - Chronic kidney disease, unspecified; D63.1 - Anemia in chronic kidney disease (8) Hypertension Current Visit: No Status: Chronic Assessment and plan: Uncontrolled Increased lopressor Added hydralazine po Continue to monitor Qualifiers: Hypertension type: secondary to other renal disorders Qualified Code(s): I15.1 - Hypertension secondary to other renal disorders; N28.89 - Other specified disorders of kidney and ureter (9) Morbid obesity with BMI of 40.0-44.9, adult Current Visit: No Status: Chronic - Subjective Interval history: 70 Y/O F admitted for management of diastolic CHF exacerbation and ELIUD on CKD. ELIUD has stabilized but not improved, renal is following, recommendations are noted and followed She has no new complains today Lasix was held today due to worsening ELIUD. - Constitutional Vitals: Temp Pulse Resp BP Pulse Ox 98.0 F 77 16 174/78 98 04/27/16 14:59 04/27/16 14:59 04/27/16 16:30 04/27/16 14:59 04/27/16 16:30 General appearance: Present: A&O X 3, pleasant, no acute distress - Head Head exam: Present: atraumatic - Eye Eye exam: Present: PERRL, conjuntiva pink, sclera anicteric - ENT ENT exam: Present: mucous membranes moist - Neck Neck exam general surgery: Present: normal inspection - Respiratory Respiratory exam: Present: rales - Cardiovascular Cardiovascular exam: Present: RRR, +S1, +S2 - GI/Abdominal GI/Abdominal exam: Present: normal bowel sounds, soft, no peritoneal signs. Absent: tenderness - Extremities Exam Extremities exam: Present: pedal edema (1+ bilaterally) - Neurological Exam Neurological exam: Present: CN II-XII intact, oriented X3, no focal deficits. Absent: pronater drift, facial droop, speech deficit - Skin Skin exam: Present: dry, intact Internal Medicine: Result - Labs CBC & Chem 7: 04/27/16 02:59 04/27/16 02:59 Labs: Short CBC 04/27/16 Range/Units 02:59 WBC 9.7 (4.3-11.1) K/mcL Hgb 8.6 L (11.5-15.4) g/dL Hct 29.0 L (35.3-44.9) % Plt Count 261 (140-400) K/mcL Neutrophils # 7.4 (1.6-8.9) K/mcL BMP 04/27/16 02:59 Sodium 141 Potassium 5.1 H Chloride 110 H Carbon Dioxide 22 BUN 58 H Creatinine 3.18 H Glucose 136 H Calcium 9.1 Urine 04/27/16 Range/Units 11:26 Urine Color Yellow (Yellow) Urine Clarity Cloudy A (Clear) Urine pH 5.5 (5.0-8.0) pH Units Ur Specific [place] 1.013 (1.010-1.025) Urine Protein 100 H (Neg-Trace) mg/dL Urine Glucose (UA) Normal (Normal) mg/dL - ABG Interpretation ABG results: PT/INR, D-dimer PT 12.7 Seconds (9.4-12.1) H 04/25/16 11:05 Consult Discharge Plan - Plan Referrals: Polina Crawford MD [Primary Care Provider] -
[2016-04-27] MEDS: Insulin DETEMIR 100 UNIT/ML X5UNITS SQ SCH (21:18)
[2016-04-27] MEDS: hydrALAZINE 25 MG TABLET PO SCH (22:50)
[2016-04-28] MEDS: Ipratropium/Albuterol Neb 3 ML IH SCH ×4 (03:33→22:03)
[2016-04-28] MEDS: *HR* Heparin 5,000 UNIT/ML VIAL SQ SCH ×2 (05:16→17:15)
[2016-04-28 05:55] LABS: Calcium 8.7 mg/dL (8.6-10.8); Potassium 4.7 mEq/L (3.5-4.5)
[2016-04-28 08:11] LABS: Basophils % 0.2 %; Eosinophils # 0.3 K/mcL (0.0-0.6); Eosinophils % 3.5 %; Hematocrit 30.1 % (35.3-44.9); Hemoglobin 8.9 g/dL (11.5-15.4); Immature Granulocytes % 0.3 % (0-4); Immature Platelets 2.4 % (1.1-6.1); Lymphocytes # 1.2 K/mcL (0.6-4.6); Lymphocytes % 13.4 %; Mean Corpuscular HGB Conc 29.6 g/dL (31.6-35.5); Mean Corpuscular Hemoglobin 26.6 pg (28.0-33.3); Mean Corpuscular Volume 89.9 fL (83.0-100.0); Mean Platelet Volume 10.8 fL (9.4-12.4); Monocytes # 0.7 K/mcL (0.0-1.3); Monocytes % 7.5 %; Neutrophils # 6.9 K/mcL (1.6-8.9); Platelet Count 237 K/mcL (140-400); Red Blood Count 3.35 M/mcL (3.82-4.97); Red Cell Distribution Width 17.2 % (11.5-14.5); Segmented Neutrophils % 75.1 %
[2016-04-28] MEDS: Insulin LISPRO 300 UNITS/3 ML VIAL SQ SCH ×4 (08:27→21:11)
[2016-04-28] MEDS: Cholecalciferol (D-3) 1,000 UNIT TABLET PO SCH (08:27)
[2016-04-28] MEDS: Famotidine 20 MG TABLET PO SCH ×2 (08:27→21:12)
[2016-04-28] MEDS: Diltiazem CD (24hr) 240 MG CAPSULE PO SCH (08:27)
[2016-04-28] MEDS: Aspirin Enteric Coated 81 MG Tablet PO SCH (08:27)
--- NOTE | 2016-04-28 08:36 | Nephrology Progress Note ---
Date of Encounter: 04/28/16 Time of Encounter: 08:34 - Assessment and Plan (1) Acute kidney injury Current Visit: Yes Status: Acute Patient has acute kidney injury superimposed on stage IV chronic kidney disease in the setting of worsening diastolic heart failure. Her Lasix was held and her renal function is improving. She has been resume low-dose Lasix. Blood pressure is suboptimal. Breasts which are back to labetalol and discontinue the metoprolol. (2) Chronic kidney disease, stage IV (severe) Current Visit: Yes Status: Acute (3) Type 2 diabetes mellitus with diabetic chronic kidney disease Current Visit: Yes Status: Acute Qualifiers: Diabetes mellitus prison insulin use: with prison use Chronic kidney disease stage: stage 4 (severe) Qualified Code(s): E11.22 - Type 2 diabetes mellitus with diabetic chronic kidney disease; N18.4 - Chronic kidney disease, stage 4 (severe); Z79.4 - detention (current) use of insulin (4) Acute on chronic diastolic (congestive) heart failure Current Visit: Yes Status: Acute Subjective Principal diagnosis: ELIUD on CKD Interval history: Patient reports she is feeling better. She has less shortness of breath and less swelling. Her Lasix was held and her creatinine has improved from 3.18 and 2.88. Previous baseline has ranged from 2.2-2.5. Objective - Vital Signs Vital signs: Vital Signs Temp Pulse Resp BP Pulse Ox 04/28/16 06:55 97.4 F L 75 16 166/77 94 L 04/28/16 05:15 97.7 F 79 16 151/65 94 L 04/28/16 03:33 16 99 04/27/16 22:46 98.0 F 82 16 145/75 95 04/27/16 22:33 16 99 04/27/16 20:15 93 L 04/27/16 19:00 98.2 F 84 15 144/78 93 L 04/27/16 16:30 16 98 04/27/16 14:59 98.0 F 77 16 174/78 94 L 04/27/16 11:52 98.3 F 81 16 169/77 94 L 04/27/16 10:46 14 98 04/27/16 10:45 98 Intake and Output 04/27/16 04/28/16 04/28/16 23:59 07:59 15:59 Intake Total 480 / 480 Output Total 200 / 200 400 / 400 Balance 480 / 480 -200 / -200 -400 / -400 Intake: Oral 480 / 480 Output: Urine 200 / 200 400 / 400 Other: Meal Dinner Percent of Meal Consumed 100% # Voids 2 Weight 106.793 kg Blood Glucose* 237 138 - General Appearance Exam: Patient is sitting up in a chair eating breakfast. She is in no acute distress. Lungs symmetric breath sounds otherwise clear. Heart regular rate and rhythm. Abdomen is benign. Extremities show 1+ lower extremity swelling. - Lab 04/28/16 06:50 04/28/16 04:09 Most recent lab results Calcium 8.7 mg/dL (8.6-10.8) 04/28/16 04:09 Consult Discharge Plan - Plan Referrals: Polina Crawford MD [Primary Care Provider] -
--- NOTE | 2016-04-28 09:23 | Electrocardiograph Report ---
[facility] Test Date: 2016-04-25 Pat Name: Ryland Bazan Department: 105 Room: 3B22 Gender: F Vp Of Customer Experience Strategy: TODD : 1945 Requested By: Justice Francisco Order Number: [id number] Reading MD: Ever Rowan MD Measurements Intervals [place] Rate: 79 P: 62 SC: 203 QRS: -14 QRSD: 102 T: 58 QT: 379 QTc: 414 Interpretive Statements SINUS RHYTHM Electronically Signed On 04-28-16 09:22:40 EST by Ever Rowan MD
[2016-04-28] MEDS: Budesonide/Formoterol 160/4.5 MDI IH SCH ×2 (10:40→22:03)
[2016-04-28] MEDS: hydrALAZINE 25 MG TABLET PO SCH ×3 (15:36→23:59)
--- NOTE | 2016-04-28 17:43 | Internal Med Progress Note ---
Date of Encounter: 04/28/16 Time of Encounter: 12:40 - Assessment and plan (1) Acute on chronic diastolic (congestive) heart failure Current Visit: Yes Status: Acute Assessment and plan: ECHO report shows LVEF 55-60%, Moderate LVDD, Mild pulm HTN with RVSP 36-41 Lasix has been resumed Continue Hydralazine, Labetalol, Diltiazem Strict intake/output Fluid restriction Daily weight checks (2) Acute on chronic kidney failure Current Visit: Yes Status: Acute Assessment and plan: Possibly cardio-renal Renal USS with no-obstructing 6mm right renal calculus, no hydropnephrosis Improving, continue to monitor (3) Urinary tract infection Current Visit: Yes Status: Acute Assessment and plan: Complicated, due to stones Urine culture with GNR, sensitivity pending She has been started on levoquin 750mg q48H Continue same Qualifiers: Urinary tract infection type: site unspecified Hematuria presence: with hematuria Qualified Code(s): N39.0 - Urinary tract infection, site not specified; R31.9 - Hematuria, unspecified (4) Asthma Current Visit: Yes Status: Chronic Assessment and plan: Not in exacerbation Qualifiers: Asthma severity: unspecified severity Asthma complication type: uncomplicated Qualified Code(s): J45.909 - Unspecified asthma, uncomplicated (5) Chest pain Current Visit: Yes Status: Acute Assessment and plan: Pleuritic,patient with cough for about a week. CXR with mild pulmonary congestion Patient is not tachycardic or overtly hypoxic Troponin is negative X3. Will continue to monitor Qualifiers: Chest pain type: unspecified Qualified Code(s): R07.9 - Chest pain, unspecified (6) Type 2 diabetes mellitus Current Visit: Yes Status: Chronic Qualifiers: Diabetes mellitus complication status: with kidney complications Diabetes mellitus complication detail: with chronic kidney disease Diabetes mellitus terminal gauger insulin use: with fdc use Chronic kidney disease stage: stage 4 (severe) Qualified Code(s): E11.22 - Type 2 diabetes mellitus with diabetic chronic kidney disease; N18.4 - Chronic kidney disease, stage 4 (severe); Z79.4 - correction (current) use of insulin (7) Anemia Current Visit: Yes Status: Chronic Qualifiers: Anemia type: other cause Other causes of anemia: chronic disease, kidney Qualified Code(s): N18.9 - Chronic kidney disease, unspecified; D63.1 - Anemia in chronic kidney disease (8) Hypertension Current Visit: No Status: Chronic Assessment and plan: Better controlled, continue meds Qualifiers: Hypertension type: secondary to other renal disorders Qualified Code(s): I15.1 - Hypertension secondary to other renal disorders; N28.89 - Other specified disorders of kidney and ureter (9) Morbid obesity with BMI of 40.0-44.9, adult Current Visit: No Status: Chronic - Subjective Interval history: 70 Y/O F admitted for management of diastolic CHF exacerbation and ELIUD on CKD. Seen at bedside, no new complains BP has improved. ELIUD is improving slowly She is been followed by renal, recommendations noted Urine culture with GNR, sensitivity pending - Constitutional Vitals: Temp Pulse Resp BP Pulse Ox 97.7 F 65 20 148/55 98 04/28/16 15:13 04/28/16 15:13 04/28/16 16:00 04/28/16 15:13 04/28/16 16:00 General appearance: Present: A&O X 3, pleasant, no acute distress - Head Head exam: Present: atraumatic, normocephalic - Eye Eye exam: Present: PERRL, conjuntiva pink, sclera anicteric Pupils: Present: PERRL - Neck Neck exam general surgery: Present: supple, trachea midline. Absent: lymphadenopathy - Respiratory Respiratory exam: Present: CTAB. Absent: accessory muscle use, rales, rhonchi, wheezes - Cardiovascular Cardiovascular exam: Present: RRR, +S1, +S2. Absent: diastolic murmur, gallop, rubs, systolic murmur - GI/Abdominal GI/Abdominal exam: Present: normal bowel sounds, soft, no peritoneal signs. Absent: distended, tenderness - Extremities Exam Extremities exam: Present: pedal edema - Neurological Exam Neurological exam: Present: CN II-XII intact, oriented X3, no focal deficits. Absent: pronater drift, facial droop, speech deficit - Skin Skin exam: Present: dry, intact Internal Medicine: Result - Labs CBC & Chem 7: 04/28/16 06:50 04/28/16 04:09 Labs: Short CBC 04/28/16 Range/Units 06:50 WBC 9.2 (4.3-11.1) K/mcL Hgb 8.9 L (11.5-15.4) g/dL Hct 30.1 L (35.3-44.9) % Plt Count 237 (140-400) K/mcL Neutrophils # 6.9 (1.6-8.9) K/mcL BMP 04/28/16 04:09 Sodium 143 Potassium 4.7 H Chloride 111 H Carbon Dioxide 23 BUN 59 H Creatinine 2.88 H Glucose 139 H Calcium 8.7 - ABG Interpretation ABG results: PT/INR, D-dimer PT 12.7 Seconds (9.4-12.1) H 04/25/16 11:05 Consult Discharge Plan - Plan Referrals: Lilia Valencia, FACILITIES MAINTENANCE SUPERVISOR [Advanced Practice Nurse] - 05/06/16 10:30 am
[2016-04-28] MEDS: Insulin DETEMIR 100 UNIT/ML X5UNITS SQ SCH (21:11)
[2016-04-29] MEDS: Ipratropium/Albuterol Neb 3 ML IH SCH ×2 (04:06→10:12)
[2016-04-29 05:05] LABS: Basophils % 0.3 %; Eosinophils # 0.3 K/mcL (0.0-0.6); Eosinophils % 3.3 %; Hematocrit 29.2 % (35.3-44.9); Hemoglobin 8.7 g/dL (11.5-15.4); Immature Granulocytes % 0.4 % (0-4); Lymphocytes # 1.3 K/mcL (0.6-4.6); Lymphocytes % 17.1 %; Mean Corpuscular HGB Conc 29.8 g/dL (31.6-35.5); Mean Corpuscular Hemoglobin 26.8 pg (28.0-33.3); Mean Corpuscular Volume 89.8 fL (83.0-100.0); Mean Platelet Volume 11.7 fL (9.4-12.4); Monocytes # 0.6 K/mcL (0.0-1.3); Neutrophils # 5.4 K/mcL (1.6-8.9); Platelet Count 194 K/mcL (140-400); Red Blood Count 3.25 M/mcL (3.82-4.97); Red Cell Distribution Width 17.1 % (11.5-14.5); Segmented Neutrophils % 70.9 %
[2016-04-29] MEDS: *HR* Heparin 5,000 UNIT/ML VIAL SQ SCH (05:08)
[2016-04-29 05:43] LABS: Albumin 2.4 g/dL (3.5-5.0); Albumin/Globulin Ratio 0.6 (1.1-2.2); Bilirubin,Total 0.1 mg/dL (0.2-1.2); Calcium 9.2 mg/dL (8.6-10.8); Globulin 4.1 g/dL (2.4-3.5); Total Protein 6.5 g/dL (6.0-8.3)
[2016-04-29 05:44] LABS: Large Platelets Present (Not Present); Platelet Estimate Normal (Normal)
[2016-04-29 07:47] VITALS: BP 158/74
--- NOTE | 2016-04-29 08:01 | Nephrology Progress Note ---
Date of Encounter: 04/29/16 Time of Encounter: 07:59 - Assessment and Plan (1) Acute kidney injury Current Visit: Yes Status: Acute Patient has acute kidney injury superimposed on stage IV chronic kidney disease in the setting of worsening diastolic heart failure. The patient's blood pressures on the low side today some going to reduce the hydralazine. She should continue on the Lasix for continued diuresis. We will continue to monitor her renal function. From a renal standpoint she could realistically be discharged home and we could follow her as an outpatient. (2) Chronic kidney disease, stage IV (severe) Current Visit: Yes Status: Acute (3) Type 2 diabetes mellitus with diabetic chronic kidney disease Current Visit: Yes Status: Acute Qualifiers: Diabetes mellitus dedicated intermodal truck driver insulin use: with dedicated intermodal truck driver use Chronic kidney disease stage: stage 4 (severe) Qualified Code(s): E11.22 - Type 2 diabetes mellitus with diabetic chronic kidney disease; N18.4 - Chronic kidney disease, stage 4 (severe); Z79.4 - snf (current) use of insulin (4) Acute on chronic diastolic (congestive) heart failure Current Visit: Yes Status: Acute Subjective Principal diagnosis: ELIUD on CKD Interval history: Patient denies any new complaints. Her breathing continues to be improved. She does continue to experience some lower extremity swelling. Blood pressures a bit on the low side at 118/64. Renal function is stable with a creatinine of 2.86 today. Objective - Vital Signs Vital signs: Vital Signs Temp Pulse Resp BP Pulse Ox 04/29/16 07:45 97.7 F 74 16 158/74 95 04/29/16 05:05 97.5 F L 73 16 118/64 98 04/28/16 23:43 97.6 F 80 16 113/70 96 04/28/16 22:03 16 96 04/28/16 19:42 98.0 F 76 15 143/79 94 L 04/28/16 19:30 98 04/28/16 16:00 20 98 04/28/16 15:13 97.7 F 65 16 148/55 94 L 04/28/16 11:28 97.2 F L 73 16 147/77 92 L 04/28/16 10:40 18 93 L Intake and Output 04/28/16 04/28/16 04/29/16 15:59 23:59 07:59 Intake Total 690 / 690 480 / 480 Output Total 800 / 800 200 / 200 0 / 0 Balance -110 / -110 280 / 280 0 / 0 Intake: Oral 690 / 690 480 / 480 Output: Urine 800 / 800 200 / 200 Right Nephrostomy 0 / 0 Other: Meal Lunch Dinner Percent of Meal Consumed 45% 100% Weight 106 kg Blood Glucose* 135 231 134 Patient Weight 04/29/16 23:59 Weight 106 kg - General Appearance Exam: Patient is alert and oriented. She is in no acute distress. Lung sounds. Heart regular rate and rhythm with a 2/6 soft ejection murmur. Abdomen is benign. Lower extremities show 1-2+ lower extremity swelling. - Lab 04/29/16 04:13 04/29/16 04:13 Most recent lab results Calcium 9.2 mg/dL (8.6-10.8) 04/29/16 04:13 Consult Discharge Plan - Plan Referrals: Lilia Valencia, SHIRT SORTER [Advanced Practice Nurse] - 05/06/16 10:30 am
[2016-04-29] MEDS: Furosemide 20 MG TABLET PO SCH (08:22)
[2016-04-29] MEDS: Aspirin Enteric Coated 81 MG Tablet PO SCH (08:22)
[2016-04-29] MEDS: Diltiazem CD (24hr) 240 MG CAPSULE PO SCH (08:22)
[2016-04-29] MEDS: Cholecalciferol (D-3) 1,000 UNIT TABLET PO SCH (08:23)
[2016-04-29] MEDS: Famotidine 20 MG TABLET PO SCH (08:23)
[2016-04-29] MEDS: Insulin LISPRO 300 UNITS/3 ML VIAL SQ SCH (08:25)
[2016-04-29] MEDS ORDERED: hydrALAZINE 25 MG TABLET PO SCH (09:00)
[2016-04-29] MEDS: Budesonide/Formoterol 160/4.5 MDI IH SCH (10:12)
--- NOTE | 2016-04-29 10:31 | Discharge Summary ---
Date of Encounter: 04/29/16 Time of Encounter: 09:45 - Discharge Diagnosis (1) Acute kidney injury Priority: Primary Status: Acute Comments: Followed by nephrology throughout this admission. Follow-up closely outpatient. We will continue Lasix upon discharge and will decrease hydralazine dosage. Renal functioning stable on day of discharge. (2) Acute on chronic diastolic (congestive) heart failure Priority: Primary Status: Chronic Comments: Echocardiogram revealing normal ejection fraction of 55-60% with mild diastolic dysfunction. He will limit on the discharge. Patient stating her lower extremity edema was quite a bit better than it usually is on day of discharge. 1+ pitting edema noted bilaterally. Patient denied shortness of breath above her normal day of discharge. She was able to give herself a shower prior to discharge. We will continue Lasix upon discharge, follow-up closely outpatient with carpet repairer and gravity prospecting observer. (3) Chest pain Priority: Primary Status: Resolved Comments: Patient denied chest pain on day of discharge. Troponins negative 3. Chest x- ray revealing mild pulmonary congestion, prior chest pain pleuritic in nature. Follow-up outpatient. ACS unlikely. Qualifiers: Chest pain type: unspecified Qualified Code(s): R07.9 - Chest pain, unspecified (4) Chronic kidney disease, stage IV (severe) Priority: Secondary Status: Chronic (5) DVT prophylaxis Priority: Primary Status: Acute Comments: Subcutaneous heparin while admitted (6) Type 2 diabetes mellitus with diabetic chronic kidney disease Priority: Secondary Status: Chronic Comments: Controlled at home with an A1c of 6.7%. Recommend continued follow-up outpatient. Qualifiers: Diabetes mellitus senior living insulin use: with senior living use Chronic kidney disease stage: stage 4 (severe) Qualified Code(s): E11.22 - Type 2 diabetes mellitus with diabetic chronic kidney disease; N18.4 - Chronic kidney disease, stage 4 (severe); Z79.4 - senior care (current) use of insulin (7) Urinary tract infection Priority: Primary Status: Acute Comments: Urine culture consistent with Klebsiella pneumoniae pansensitive except for nitrofurantoin. Treated with levofloxacin while admitted, will continue upon discharge. Qualifiers: Urinary tract infection type: site unspecified Hematuria presence: with hematuria Qualified Code(s): N39.0 - Urinary tract infection, site not specified; R31.9 - Hematuria, unspecified (8) Anemia Priority: Secondary Status: Chronic Comments: Stable and at the low end of her normal day of discharge, follow-up closely outpatient. No signs of active bleeding. Qualifiers: Anemia type: other cause Other causes of anemia: chronic disease, kidney Qualified Code(s): N18.9 - Chronic kidney disease, unspecified; D63.1 - Anemia in chronic kidney disease (9) Asthma Priority: Secondary Status: Chronic Qualifiers: Asthma severity: unspecified severity Asthma complication type: uncomplicated Qualified Code(s): J45.909 - Unspecified asthma, uncomplicated (10) Hypertension Priority: Secondary Status: Chronic Comments: Stable. Borderline hypertensive at times, recommending continued daily blood pressure checks at home, keeping a log, and close outpatient follow-up. HCTZ dosage and frequency decreased per her gravity prospecting observer. Qualifiers: Hypertension type: secondary to other renal disorders Qualified Code(s): I15.1 - Hypertension secondary to other renal disorders; N28.89 - Other specified disorders of kidney and ureter (11) Morbid obesity with BMI of 40.0-44.9, adult Priority: Secondary Status: Chronic - Discharge Medications Prescriptions: HydrALAZINE 25 mg PO BID #60 tablet Labetalol [Trandate] 100 mg PO TID #90 tablet Levofloxacin 750 mg PO Q48H #9 tablet Home Medications: Albuterol Sulfate [Albuterol Inhaler] 2 puff IH Q4HR 12/18/14 [History] Aspirin Enteric Coated [Aspirin EC] 81 mg PO QAM 12/18/14 [History] Atorvastatin [Lipitor] 40 mg PO QPM 12/18/14 [History] Budesonide/Formoterol 160/4.5 [Symbicort] 2 puff IH BID 12/18/14 [History] Cholecalciferol (Vitamin D3) [Vitamin D3] 2,000 unit PO QAM 12/18/14 [History] Diltiazem CD (24hr) [Cardizem CD] 240 mg PO QAM 12/18/14 [History] Insulin Glargine,Hum.rec.anlog [Lantus Solostar] 48 unit SQ HS 12/18/14 [History ] Insulin Glargine,Hum.rec.anlog [Lantus Solostar] 50 unit SQ QAM 12/18/14 [ History] Insulin LISPRO [Humalog Kwikpen U-200] 32 - 50 unit SQ BIDWM 12/18/14 [History] Montelukast [Singulair] 10 mg PO QPM 12/18/14 [History] SitaGLIPtin [Januvia] 50 mg PO QPM 12/18/14 [History] Ferrous Sulfate [Iron] 325 mg PO QAM 04/25/16 [History] Furosemide [Lasix] 20 mg PO DAILY 04/25/16 [History] Vit A/Vit C/Vit E/Zinc/Copper [Preservision Areds Tablet] 1 tab PO QAM 04/25/16 [History] HydrALAZINE 25 mg PO BID #60 tablet 04/29/16 [Rx] Labetalol [Trandate] 100 mg PO TID #90 tablet 04/29/16 [Rx] Levofloxacin 750 mg PO Q48H #9 tablet 04/29/16 [Rx] Allergies/Adverse Reactions: Allergies acetaminophen [From Percocet] Adverse Reaction (Verified 04/25/16 10:54) Nausea hydrocodone Adverse Reaction (Verified 04/25/16 10:54) Nausea Oxycodone [From Percocet] Adverse Reaction (Verified 04/25/16 10:54) Nausea propoxyphene [From Darvon] Adverse Reaction (Verified 04/25/16 10:53) Nausea Sulfa (Sulfonamide Antibiotics) Adverse Reaction (Verified 04/25/16 10:53) Nausea Procedures/tests Complete & Pending: Procedures Performed prior 72 hours Category Date Time Status Retroperitoneal Ultrasound - Complete [US Exams 04/26/16 13:45 Completed retroperitoneal comp] [US] Stat Date of admission: 04/25/16 13:22 Primary care physician: Polina Crawford, Consults: 04/25/16 13:34 Consult to Nephrology [CONS] Routine Consulting Provider: Kidney [facility] HTN Spclst DIANNA Reason for Consult: 70 yo F admitted with acute on chronic heart failure and acute on chronic kidney disease Call Completed: Yes Discharging clinician: Tena Hawthorne Anticipated date of discharge: 04/29/16 - Patient Status Disposition: Home, Self-Care Condition: Fair Functional capacity at discharge: independent ambulation Overall status at discharge: patient is progressing back to baseline - Discharge Instructions Follow Up With: Lilia Valencia, HEEL NAILING MACHINE OPERATOR [Advanced Practice Nurse] - 05/06/16 10:30 am Lul Flores, [Non-Partnered Physician] - Additional Instructions: Follow-up with primary care provider as scheduled. Follow up closely with nephrology - Diet and Activity Activity: increase activity as tolerated Diet: diabetic diet, low fat, low cholesterol, low salt diet, other (fluid restriction 1500ml.day) Hospital course: Ms. Bazan is a 70 year old female with past medical history of diastolic heart failure, hypertension, type 2 diabetes, asthma, chronic kidney disease. Patient presented to emergency department chief complaint shortness of breath and left-sided chest pain. Patient stating the chest pain was similar to it felt like last year when she had CHF exacerbation. She states the pain is worsened with deep breaths. Patient also noted increased swelling to her legs over the past several weeks prior to presentation. Patient also endorsed productive cough and feeling more short of breath than usual. Patient stating her Lasix dosage was decreased a month or so ago from 40-20 mg daily due to concerns with her kidney function. Acute kidney injury superimposed on chronic kidney disease stage IV noted in the emergency department. Chest x-ray consistent with mild CHF. Patient was admitted to the hospitalist service for further evaluation and management. Patient had an echocardiogram that revealed ejection fraction of 55-60% with moderate diastolic dysfunction, no significant changes from prior echocardiogram in 2014. Retroperitoneal ultrasound unremarkable with a nonobstructive right-sided stone. Nephrology was brought on board. She has followed per Dr. Flores. Urinary tract infection also noted with urine culture positive for Klebsiella pneumoniae pansensitive except for nitrofurantoin. Patient was treated with levofloxacin renally dosed with dosing every 48 hours while admitted and sent home on the same. Patient was admitted and observed over the course of 5 days and on day of discharge, she denied shortness of breath above her norm, she denied chest pain, and stated that the lower extremity edema had improved from her baseline. Okayed to continue her home dosing of 20 mg of Lasix daily at home per nephrology. Renal functioning stable on the discharge. She is discharged home in stable condition with close outpatient follow-up with gravity prospecting observer and primary care team. ITS Impressions Chest X-Ray 04/25/16 10:56 IMPRESSION: Mild CHF. D/ / Jerome Alvarez MD / Jerome Alvarez MD Interpreting Provider: Jerome Alvarez MD Retroperitoneum Ultrasound 04/26/16 13:45 IMPRESSION: No evidence of hydronephrosis bilaterally. Nonobstructing 6 mm right renal calculus. D/ / Wisam Markham MD / Wisam Markham MD Interpreting Provider: Wisam Markham MD Echocardiogram impressions: Normal left ventricular size and systolic function, LVEF 55-60%. Moderate left ventricular diastolic dysfunction. Mildly dilated right ventricle with normal systolic function. Mildly dilated left atrium. Mildly dilated right atrium. Mild mitral regurgitation. Mild pulmonary hypertension. Estimated RVSP equals 36-41 mmHg. - Time Spent with Patient Total time spent providing and/or coordinating discharge services: - Constitutional Vitals: Temp Pulse Resp BP Pulse Ox 97.7 F 74 16 158/74 95 04/29/16 07:45 04/29/16 07:45 04/29/16 07:45 04/29/16 07:45 04/29/16 07:45 General appearance: Present: A&O X 3, morbidly obese, pleasant, no acute distress, answers questions appropriately - Head Head exam: Present: atraumatic, normocephalic - Eye Eye exam: Present: PERRL, conjuntiva pink, sclera anicteric Pupils: Present: PERRL - Neck Neck exam general surgery: Present: supple, trachea midline. Absent: lymphadenopathy - Respiratory Respiratory exam: Present: decreased breath sounds. Absent: accessory muscle use, rales, respiratory distress, rhonchi, wheezes - Cardiovascular Cardiovascular exam: Present: RRR, +S1, +S2. Absent: diastolic murmur, gallop, rubs, systolic murmur - GI/Abdominal GI/Abdominal exam: Present: normal bowel sounds, soft, no peritoneal signs. Absent: distended, tenderness - Extremities Exam Extremities exam: Present: pedal edema (1+ bilaterally), warm, radial pulses palpable and symetrical. Absent: calf tenderness, cyanotic - Neurological Exam Neurological exam: Present: alert, CN II-XII intact, normal gait, oriented X3, no focal deficits, strengths equal and symetr throughout. Absent: pronater drift, facial droop, speech deficit - Skin Skin exam: Present: dry, intact, normal color, warm
== END 2016-04-29 11:40 | disposition home or self-care (01) | DRG 304 ==
LOC: 3BNU 10:48 → EMEROO 10:48 → SUATTDRO 13:22 → 3BNU 14:02
PROVIDERS: ADMIT Internal Medicine; ATTEND Internal Medicine

== ENCOUNTER 2016-11-05 14:23 | Observation (INO) ==
--- NOTE | 2016-11-05 14:31 | Emergency Department Note ---
Disposition Clinical Impression: Hyperkalemia, CHF exacerbation, Chronic kidney disease Disposition: Admitted As Inpatient Condition: Good General Adult HPI - General Chief complaint: ED Shortness of Breath/Dyspnea Stated complaint: NICANOR Time Seen by Provider: 11/05/16 14:29 Source: patient Limitations: no limitations - History of Present Illness Pain Scale: 4 - Related Data Home Medications Medication Instructions Recorded Confirmed Albuterol Sulfate [Albuterol 2 puff IH Q4HR 12/18/14 11/05/16 Inhaler] Aspirin Enteric Coated [Aspirin EC] 81 mg PO QAM 12/18/14 11/05/16 Atorvastatin [Lipitor] 40 mg PO QPM 12/18/14 11/05/16 Budesonide/Formoterol 160/4.5 2 puff IH BID 12/18/14 11/05/16 [Symbicort] Cholecalciferol (Vitamin D3) 2,000 unit PO QAM 12/18/14 11/05/16 [Vitamin D3] Diltiazem CD (24hr) [Cardizem CD] 240 mg PO QAM 12/18/14 11/05/16 Insulin Glargine,Hum.rec.anlog 26 unit SQ BID 12/18/14 11/05/16 [Lantus Solostar] Montelukast [Singulair] 10 mg PO QPM 12/18/14 11/05/16 Ferrous Sulfate [Iron] 325 mg PO QAM 04/25/16 11/05/16 Furosemide [Lasix] 20 mg PO DAILY 04/25/16 11/05/16 Vit A/Vit C/Vit E/Zinc/Copper 1 tab PO BID 04/25/16 11/05/16 [Preservision Areds Tablet] Darbepoetin [Aranesp] 100 mcg IJ Q2W 11/05/16 11/05/16 Insulin LISPRO [Humalog Kwikpen 26 unit SQ BIDWM 11/05/16 11/05/16 U-100] Previous Rx's Medication Instructions Recorded Labetalol [Trandate] 100 mg PO TID #90 tablet 04/29/16 hydrALAZINE [HydrALAZINE] 25 mg PO BID #60 tablet 04/29/16 Allergies Allergy/AdvReac Type Severity Reaction Status Date / Time acetaminophen [From Percocet] AdvReac Nausea Verified 04/25/16 10:54 hydrocodone AdvReac Nausea Verified 04/25/16 10:54 Oxycodone [From Percocet] AdvReac Nausea Verified 04/25/16 10:54 propoxyphene [From Darvon] AdvReac Nausea Verified 04/25/16 10:53 Sulfa (Sulfonamide AdvReac Nausea Verified 04/25/16 10:53 Antibiotics) Past Medical History - Past Medical History Medical history: Reports: asthma, CHF, diabetes, hyperlipidemia, hypertension, renal disease Surgical history: Reports: , knee replacement Psychiatric history: Reports: no psych history - Social History Smoking Status: Never smoker Smokeless Tobacco Status: No Alcohol use: Reports: rarely, occasionally Drug use: Reports: none Physical Exam - General Limitations: no limitations General appearance: alert, in no apparent distress Course Vital Signs Temperature 98.3 F 11/05/16 14:25 Pulse Rate 87 11/05/16 14:25 Respiratory Rate 18 11/05/16 14:25 Blood Pressure 174/76 11/05/16 14:25 O2 Sat by Pulse Oximetry 95 11/05/16 14:25 Temperature 98.3 F 11/05/16 14:25 Pulse Rate 75 11/05/16 16:21 Respiratory Rate 16 11/05/16 17:11 Blood Pressure 143/53 11/05/16 17:11 O2 Sat by Pulse Oximetry 95 11/05/16 16:21 Oxygen Delivery Oxygen Delivery Room Air Medical Decision Making - Lab Data Result diagrams: 11/05/16 15:00 11/05/16 15:00 Lab Results 11/05/16 11/05/16 11/05/16 Range/Units 15:00 15:00 15:00 WBC 11.4 H (4.3-11.1) K/mcL RBC 3.32 L (3.82-4.97) M/mcL Hgb 9.1 L (11.5-15.4) g/dL Hct 31.0 L (35.3-44.9) % MCV 93.4 (83.0-100.0) fL MCH 27.4 L (28.0-33.3) pg MCHC 29.4 L (31.6-35.5) g/dL RDW 16.7 H (11.5-14.5) % Plt Count 232 (140-400) K/mcL MPV 9.9 (9.4-12.4) fL Immature Gran % 0.6 (0-4) % Seg Neutrophils % 85.1 % Lymphocytes % 6.7 % Monocytes % 6.4 % Eosinophils % 1.1 % Basophils % 0.1 % Neutrophils # 9.7 H (1.6-8.9) K/mcL Lymphocytes # 0.8 (0.6-4.6) K/mcL Monocytes # 0.7 (0.0-1.3) K/mcL Eosinophils # 0.1 (0.0-0.6) K/mcL Basophils # 0.0 (0.0-0.2) K/mcL Immature Plt Fraction 1.8 (1.1-6.1) % Sodium 141 (136-145) mEq/L Potassium 5.8 H (3.5-4.5) mEq/L Chloride 115 H (98-109) mEq/L Carbon Dioxide 22 (19-29) mEq/L BUN 62 H (7-20) mg/dL Creatinine 2.70 H (0.57-1.11) mg/dL Est GFR ( Amer) 21 L (> 60) Est GFR (Non-Af Amer) 17 L (> 60) BUN/Creatinine Ratio 23 (6-26) Glucose 118 H (70-99) mg/dL Calculated Osmolality 311 H (280-300) Calcium 9.6 (8.6-10.8) mg/dL Total Bilirubin 0.3 (0.2-1.2) mg/dL AST 18 (5-34) Units/L ALT 20 (0-55) Units/L Alkaline Phosphatase 205 H (38-126) Units/L Troponin I 0.00 (0-0.03) ng/mL B-Natriuretic Peptide (0-100) pg/mL Serum Total Protein 7.1 (6.0-8.3) g/dL Albumin 3.0 L (3.5-5.0) g/dL Globulin 4.1 H (2.4-3.5) g/dL Albumin/Globulin Ratio 0.7 L (1.1-2.2) 11/05/16 Range/Units 15:00 WBC (4.3-11.1) K/mcL RBC (3.82-4.97) M/mcL Hgb (11.5-15.4) g/dL Hct (35.3-44.9) % MCV (83.0-100.0) fL MCH (28.0-33.3) pg MCHC (31.6-35.5) g/dL RDW (11.5-14.5) % Plt Count (140-400) K/mcL MPV (9.4-12.4) fL Immature Gran % (0-4) % Seg Neutrophils % % Lymphocytes % % Monocytes % % Eosinophils % % Basophils % % Neutrophils # (1.6-8.9) K/mcL Lymphocytes # (0.6-4.6) K/mcL Monocytes # (0.0-1.3) K/mcL Eosinophils # (0.0-0.6) K/mcL Basophils # (0.0-0.2) K/mcL Immature Plt Fraction (1.1-6.1) % Sodium (136-145) mEq/L Potassium (3.5-4.5) mEq/L Chloride (98-109) mEq/L Carbon Dioxide (19-29) mEq/L BUN (7-20) mg/dL Creatinine (0.57-1.11) mg/dL Est GFR ( Amer) (> 60) Est GFR (Non-Af Amer) (> 60) BUN/Creatinine Ratio (6-26) Glucose (70-99) mg/dL Calculated Osmolality (280-300) Calcium (8.6-10.8) mg/dL Total Bilirubin (0.2-1.2) mg/dL AST (5-34) Units/L ALT (0-55) Units/L Alkaline Phosphatase (38-126) Units/L Troponin I (0-0.03) ng/mL B-Natriuretic Peptide 259 H (0-100) pg/mL Serum Total Protein (6.0-8.3) g/dL Albumin (3.5-5.0) g/dL Globulin (2.4-3.5) g/dL Albumin/Globulin Ratio (1.1-2.2) Critical Care Time Critical Care Time: Yes Total Critical Care Time: 30 Attestation: Patient presented with dyspnea. Workup consistent with congestive heart failure. IV nitroglycerin initiated Attestation Statement - Attestation Attestation: I examined this patient and my medical decision-making was reviewed with the SEALS ENGRAVER/PA/Advanced Practice Nurse/Resident Physician. I agree with the documented findings, disposition and treatment plan as described except to the extent set forth below. [id number] time provided Patient presents to the treatment area by wheelchair complaining of dyspnea. Symptoms for one week worsening, worse over the past 3 days. also notes edema. History of CHF. She does appear mildly dyspneic on exam. She is not oxygen dependent at baseline 14:43: I did review the transcribed report of the patient's most recent cardiac echo dated March 2016
--- NOTE | 2016-11-05 14:50 | Emergency Department Note ---
Disposition Clinical Impression: Hyperkalemia CHF exacerbation Qualifiers: Congestive heart failure type: unspecified congestive heart failure type Qualified Code(s): I50.9 - Heart failure, unspecified Chronic kidney disease Qualifiers: Chronic kidney disease stage: unspecified stage Qualified Code(s): N18.9 - Chronic kidney disease, unspecified Disposition: Admitted As Inpatient Condition: Good Referrals: Polina Crawford MD [Primary Care Provider] - Forms: ED Satisfaction Letter General Adult HPI - General Chief complaint: ED Shortness of Breath/Dyspnea Stated complaint: NICANOR Time Seen by Provider: 11/05/16 14:29 Source: patient Limitations: no limitations Nursing Notes Reviewed: Yes Vital Signs Reviewed: Yes - History of Present Illness HPI Narrative: 70-year-old female who reports a few days of worsening dyspnea specifically with exertion. She also admits to worsening lower extremity edema. The shortness of breath is worse when she lays down flat. She has a history of CHF and sleeps with a CPAP at night. Her other medical problems include CJD, diabetes, anemia, hypertension. She does take Lasix daily. He is not on any blood thinners. Her only cardiac history is CHF. She has had a mild nonproductive cough. Pain Scale: 4 Consistency: constant Improves with: nothing Worsens with: other (Exertion) Associated symptoms: Reports: denies other symptoms Treatments Prior to Arrival: none - Related Data Home Medications Medication Instructions Recorded Confirmed Albuterol Sulfate [Albuterol 2 puff IH Q4HR 12/18/14 11/05/16 Inhaler] Aspirin Enteric Coated [Aspirin EC] 81 mg PO QAM 12/18/14 11/05/16 Atorvastatin [Lipitor] 40 mg PO QPM 12/18/14 11/05/16 Budesonide/Formoterol 160/4.5 2 puff IH BID 12/18/14 11/05/16 [Symbicort] Cholecalciferol (Vitamin D3) 2,000 unit PO QAM 12/18/14 11/05/16 [Vitamin D3] Diltiazem CD (24hr) [Cardizem CD] 240 mg PO QAM 12/18/14 11/05/16 Insulin Glargine,Hum.rec.anlog 26 unit SQ BID 12/18/14 11/05/16 [Lantus Solostar] Montelukast [Singulair] 10 mg PO QPM 12/18/14 11/05/16 Ferrous Sulfate [Iron] 325 mg PO QAM 04/25/16 11/05/16 Furosemide [Lasix] 20 mg PO DAILY 04/25/16 11/05/16 Vit A/Vit C/Vit E/Zinc/Copper 1 tab PO BID 04/25/16 11/05/16 [Preservision Areds Tablet] Darbepoetin [Aranesp] 100 mcg IJ Q2W 11/05/16 11/05/16 Insulin LISPRO [Humalog Kwikpen 26 unit SQ BIDWM 11/05/16 11/05/16 U-100] Previous Rx's Medication Instructions Recorded Labetalol [Trandate] 100 mg PO TID #90 tablet 04/29/16 hydrALAZINE [HydrALAZINE] 25 mg PO BID #60 tablet 04/29/16 Allergies Allergy/AdvReac Type Severity Reaction Status Date / Time acetaminophen [From Percocet] AdvReac Nausea Verified 04/25/16 10:54 hydrocodone AdvReac Nausea Verified 04/25/16 10:54 Oxycodone [From Percocet] AdvReac Nausea Verified 04/25/16 10:54 propoxyphene [From Darvon] AdvReac Nausea Verified 04/25/16 10:53 Sulfa (Sulfonamide AdvReac Nausea Verified 04/25/16 10:53 Antibiotics) All systems ED: reviewed and negative except as stated. Constitutional: Denies: fever ENT ED: Denies: throat pain Cardiovascular: Denies: chest pain Respiratory: Reports: cough, dyspnea. Denies: wheezes Gastrointestinal: Denies: abdominal pain, nausea, vomiting Musculoskeletal: Denies: back pain Integumentary: Denies: rash Neurological: Denies: headache Past Medical History - Past Medical History Medical history: Reports: asthma, CHF, diabetes, hyperlipidemia, hypertension, renal disease Surgical history: Reports: , knee replacement Psychiatric history: Reports: no psych history - Social History Smoking Status: Never smoker Smokeless Tobacco Status: No Alcohol use: Reports: rarely, occasionally Drug use: Reports: none Physical Exam - General Limitations: no limitations General appearance: alert, in no apparent distress - Head Head exam: atraumatic - Eye Eye exam: Present: normal appearance, PERRL - ENT ENT exam: normal exam, normal oropharynx - Neck Neck exam: Present: normal inspection - Chest Chest inspection: Present: normal inspection - Respiratory Respiratory exam: Present: other (Diminished lung sounds in the bases) - Cardiovascular Cardiovascular exam: Present: regular rate, normal rhythm - Abdominal Exam Abdominal exam: Present: soft, Non-Tender - Extremities Exam Extremities exam: Present: pedal edema (3+ in the lower extremities, equal bilaterally) - Neurological Exam Neurological exam: Present: alert, oriented X3, CN II-XII intact - Psychiatric Psychiatric exam: Present: normal affect, normal mood Course Course Narrative: She has a history of CHF and is having orthopnea with increased peripheral edema and shortness of breath. This is most likely another CHF exacerbation. We will do an EKG along with cardiac labs. Vitals are unremarkable aside from some mild hypertension. She has had these symptoms before and has not had any unilateral lower extremity edema. She says this feels just like her prior CHF exacerbations. EKG shows NSR w/o ST deviation or T have changes. Vital Signs Temperature 98.3 F 11/05/16 14:25 Pulse Rate 87 11/05/16 14:25 Respiratory Rate 18 11/05/16 14:25 Blood Pressure 174/76 11/05/16 14:25 O2 Sat by Pulse Oximetry 95 11/05/16 14:25 Temperature 98.3 F 11/05/16 14:25 Pulse Rate 87 11/05/16 14:25 Respiratory Rate 18 11/05/16 14:25 Blood Pressure 174/76 11/05/16 14:25 O2 Sat by Pulse Oximetry 95 11/05/16 14:25 Oxygen Delivery Oxygen Delivery Room Air Medical Decision Making - Medical Records Medical records reviewed: Yes I reviewed the patient's medical records. - Lab Data Lab results reviewed: Yes I reviewed the patient's lab results. Result diagrams: 11/05/16 15:00 11/05/16 15:00 Lab Results 11/05/16 11/05/16 11/05/16 Range/Units 15:00 15:00 15:00 WBC 11.4 H (4.3-11.1) K/mcL RBC 3.32 L (3.82-4.97) M/mcL Hgb 9.1 L (11.5-15.4) g/dL Hct 31.0 L (35.3-44.9) % MCV 93.4 (83.0-100.0) fL MCH 27.4 L (28.0-33.3) pg MCHC 29.4 L (31.6-35.5) g/dL RDW 16.7 H (11.5-14.5) % Plt Count 232 (140-400) K/mcL MPV 9.9 (9.4-12.4) fL Immature Gran % 0.6 (0-4) % Seg Neutrophils % 85.1 % Lymphocytes % 6.7 % Monocytes % 6.4 % Eosinophils % 1.1 % Basophils % 0.1 % Neutrophils # 9.7 H (1.6-8.9) K/mcL Lymphocytes # 0.8 (0.6-4.6) K/mcL Monocytes # 0.7 (0.0-1.3) K/mcL Eosinophils # 0.1 (0.0-0.6) K/mcL Basophils # 0.0 (0.0-0.2) K/mcL Immature Plt Fraction 1.8 (1.1-6.1) % Sodium 141 (136-145) mEq/L Potassium 5.8 H (3.5-4.5) mEq/L Chloride 115 H (98-109) mEq/L Carbon Dioxide 22 (19-29) mEq/L BUN 62 H (7-20) mg/dL Creatinine 2.70 H (0.57-1.11) mg/dL Est GFR ( Amer) 21 L (> 60) Est GFR (Non-Af Amer) 17 L (> 60) BUN/Creatinine Ratio 23 (6-26) Glucose 118 H (70-99) mg/dL Calculated Osmolality 311 H (280-300) Calcium 9.6 (8.6-10.8) mg/dL Total Bilirubin 0.3 (0.2-1.2) mg/dL AST 18 (5-34) Units/L ALT 20 (0-55) Units/L Alkaline Phosphatase 205 H (38-126) Units/L Troponin I 0.00 (0-0.03) ng/mL B-Natriuretic Peptide (0-100) pg/mL Serum Total Protein 7.1 (6.0-8.3) g/dL Albumin 3.0 L (3.5-5.0) g/dL Globulin 4.1 H (2.4-3.5) g/dL Albumin/Globulin Ratio 0.7 L (1.1-2.2) 11/05/16 Range/Units 15:00 WBC (4.3-11.1) K/mcL RBC (3.82-4.97) M/mcL Hgb (11.5-15.4) g/dL Hct (35.3-44.9) % MCV (83.0-100.0) fL MCH (28.0-33.3) pg MCHC (31.6-35.5) g/dL RDW (11.5-14.5) % Plt Count (140-400) K/mcL MPV (9.4-12.4) fL Immature Gran % (0-4) % Seg Neutrophils % % Lymphocytes % % Monocytes % % Eosinophils % % Basophils % % Neutrophils # (1.6-8.9) K/mcL Lymphocytes # (0.6-4.6) K/mcL Monocytes # (0.0-1.3) K/mcL Eosinophils # (0.0-0.6) K/mcL Basophils # (0.0-0.2) K/mcL Immature Plt Fraction (1.1-6.1) % Sodium (136-145) mEq/L Potassium (3.5-4.5) mEq/L Chloride (98-109) mEq/L Carbon Dioxide (19-29) mEq/L BUN (7-20) mg/dL Creatinine (0.57-1.11) mg/dL Est GFR ( Amer) (> 60) Est GFR (Non-Af Amer) (> 60) BUN/Creatinine Ratio (6-26) Glucose (70-99) mg/dL Calculated Osmolality (280-300) Calcium (8.6-10.8) mg/dL Total Bilirubin (0.2-1.2) mg/dL AST (5-34) Units/L ALT (0-55) Units/L Alkaline Phosphatase (38-126) Units/L Troponin I (0-0.03) ng/mL B-Natriuretic Peptide 259 H (0-100) pg/mL Serum Total Protein (6.0-8.3) g/dL Albumin (3.5-5.0) g/dL Globulin (2.4-3.5) g/dL Albumin/Globulin Ratio (1.1-2.2) - Radiology Data Radiology results reviewed: Yes I reviewed the patient's radiology results. - EKG Data EKG #1 EKG attestation: Yes I reviewed and interpreted this EKG. EKG shows normal: sinus rhythm Rate: normal Rhythm: NSR Interpretation: no acute changes
[2016-11-05 15:06] LABS: Basophils % 0.1 %; Eosinophils # 0.1 K/mcL (0.0-0.6); Eosinophils % 1.1 %; Hemoglobin 9.1 g/dL (11.5-15.4); Immature Granulocytes % 0.6 % (0-4); Immature Platelets 1.8 % (1.1-6.1); Lymphocytes # 0.8 K/mcL (0.6-4.6); Lymphocytes % 6.7 %; Mean Corpuscular HGB Conc 29.4 g/dL (31.6-35.5); Mean Corpuscular Hemoglobin 27.4 pg (28.0-33.3); Mean Corpuscular Volume 93.4 fL (83.0-100.0); Mean Platelet Volume 9.9 fL (9.4-12.4); Monocytes # 0.7 K/mcL (0.0-1.3); Monocytes % 6.4 %; Neutrophils # 9.7 K/mcL (1.6-8.9); Platelet Count 232 K/mcL (140-400); Red Blood Count 3.32 M/mcL (3.82-4.97); Red Cell Distribution Width 16.7 % (11.5-14.5); Segmented Neutrophils % 85.1 %
[2016-11-05 15:20] LABS: Albumin/Globulin Ratio 0.7 (1.1-2.2); Bilirubin,Total 0.3 mg/dL (0.2-1.2); Calcium 9.6 mg/dL (8.6-10.8); Globulin 4.1 g/dL (2.4-3.5); Potassium 5.8 mEq/L (3.5-4.5); Total Protein 7.1 g/dL (6.0-8.3)
[2016-11-05] MEDS ORDERED: Nitroglycerin 25 MG/250 ML INFUS..BTL IVC SCH (15:45)
[2016-11-05] MEDS ORDERED: Furosemide 20 MG/2 ML VIAL IVP ONE (16:14)
[2016-11-05] MEDS ORDERED: Naloxone 0.4 MG/ML INJ IVP PRN (18:18)
[2016-11-05] MEDS ORDERED: Dextrose Gel 15 GM PO PRN ×2 (18:24)
[2016-11-05] MEDS ORDERED: D5% in Water 1,000 ML IVC PRN (18:24)
[2016-11-05] MEDS ORDERED: *HR* Dextrose 50 % in Water (Syg) 50 ML SYRINGE IVP PRN (18:24)
--- NOTE | 2016-11-05 18:31 | Internal Med History&Physical ---
<Yolanda Reyna - Last Filed: 11/05/16 20:08> Date of Encounter: 11/05/16 Time of Encounter: 18:00 Assessment and Plan (1) CHF exacerbation Current visit: Yes Status: Acute Patient has a history of diastolic heart failure last echo dated 04/25/16 EF of 55-60% with moderate diastolic dysfunction. She is on Lasix at home 20 mg daily she is also on fluid restrictions which she states she has been compliant with both. She has been experiencing increasing shortness of breath as well as lower extremity swelling over the past week worsening over the past few days. Chest x-ray did show some mild interstitial edema BNP was 259 which is the highest she has been. She was given IV Lasix in the ER, we will place on lasix drip 2 we will continue with fluid restriction 1500 mL daily 3 monitor intake and output 4 daily weights 5 oxygen and maintain SPO2 greater than 92% 6 consult nephrology 7 continuous cardiac monitoring 8 nitroglycerin paste Qualifiers: Congestive heart failure type: diastolic Qualified Code(s): I50.33 - Acute on chronic diastolic (congestive) heart failure (2) Hyperkalemia Current visit: Yes Status: Acute 1 potassium was 5.8 upon presentation, no ST abnormalities noted. Patient was given Kayexalate in the ER. 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 she did receive an iron infusion yesterday and was supposed to receive Aranesp today howevre did not complete dt SOB presently hemoglobin is stable we will continue to monitor continue with oral supplements Qualifiers: Anemia type: due to chronic kidney disease Chronic kidney disease stage: stage 4 (severe) Qualified Code(s): N18.4 - Chronic kidney disease, stage 4 ( severe); D63.1 - Anemia in chronic kidney disease (4) Chronic kidney disease, stage IV (severe) Current visit: No Status: Chronic Presently creatinine is 2.7 which appears to be around her baseline, -she will need to be diuresed and we will closely monitor 2 avoid nephrotoxins 3 monitor intake and output daily weight 4 nephrology consult (5) Diabetes mellitus Current visit: No Status: Chronic Accu-Cheks before meals at bedtime with sliding scale insulin as well as basal Diabetic diet Qualifiers: Diabetes mellitus type: type 2 Diabetes mellitus complication status: with kidney complications Diabetes mellitus complication detail: with chronic kidney disease Diabetes mellitus fpc insulin use: with fpc use Chronic kidney disease stage: stage 4 (severe) Qualified Code(s): E11.22 - Type 2 diabetes mellitus with diabetic chronic kidney disease; N18.4 - Chronic kidney disease, stage 4 (severe); Z79.4 - halfway (current) use of insulin (6) DVT prophylaxis Current visit: No Status: Acute 1 heparin subcutaneous Internal Medicine - H&P: HPI Chief complaint: SOB Admitted From: Emergency Dept Plans for Post Hospital Care: Home History of present illness: Ms. Bazan is a 70 year old female past medical history of asthma and CHF diabetes, anemia coronary disease hyperlipidemia hypertension CK D stage IV, obstructive sleep apnea. Patient has been experiencing increasing lower extremity edema as well as shortness of breath on exertion over the past week. However the past few days her shortness of breath has worsened and has been experiencing even at rest She does have a history of obstructive sleep apnea and wears CPAP at night she is unable to lie flat due to worsening shortness of breath. She does have a mild nonproductive cough She has been compliant with her medications as well as fluid restrictions. She denies any recent weight gain chest pain abdominal pain nausea vomiting diarrhea fevers or chills. She presented to the ER above complaints. According to ER records chest x-ray did indicate mild interstitial edema lab work did reveal some hyperkalemia with potassium of 5.8. troponin was 0 BNP was 250 which is the highest it has been for this patient. According to records patient did appear to be in some respiratory distress on presentation she was initiated on IV nitroglycerin and was given IV Lasix. She was also given Kayexalate for her hyperkalemia Her wrist recess has improved and she has been admitted for further workup evaluation. Upon assessment the patient has just angulated back from the bathroom to her bed. She does appear to be in some mild respiratory distress. Oxygen was applied which did help patient recover. Patient does state that she feels her respiratory status has improved since her initial presentation. Her upper lung sounds are diminished lower lung sounds with crackles in bases bilaterally. Heart sounds are regular with S1-S2 no rubs Gallops or murmurs noted. She does have +2 pitting edema to lower extremities bilaterally up to her knees. Abdomen soft and nontender. She denies any chest pain at this time. She does appear to be hemodynamically stable IV this case with Dr. Padilla who agrees with plan Past Med Surg Social Fam HX - Past Medical History Medical history: asthma, CHF, diabetes, hyperlipidemia, hypertension, renal disease Psychiatric history: no psych history - Past Surgical History Surgical History: , knee replacement - Social History Smoking Status: Never smoker Smokeless Tobacco Status: No Alcohol use: rarely, occasionally Drug use: none - Family History Mother Family Member Ethnicity: Non- Living Status: Hx Family Cardiac Disorders: Yes Hx Family Respiratory Disorders: No Hx Family Cancer: Yes Hx Family GI Disorders: No Hx Family Endocrine Disorder: No Hx Family Neuromuscular Disorders: No Hx Family Neurologic Disorders: No Hx Family HEENT Disorders: No Hx Family Autoimmune Disorders: No Hx Family Reproductive Disorders: No Hx Family Psychosocial Disorders: No Hx Family Medical Disorders: No Internal Medicine - H&P: Meds Albuterol Sulfate [Albuterol Inhaler] 2 puff IH Q4HR 12/18/14 [History] Aspirin Enteric Coated [Aspirin EC] 81 mg PO QAM 12/18/14 [History] Atorvastatin [Lipitor] 40 mg PO QPM 12/18/14 [History] Budesonide/Formoterol 160/4.5 [Symbicort] 2 puff IH BID 12/18/14 [History] Cholecalciferol (Vitamin D3) [Vitamin D3] 2,000 unit PO QAM 12/18/14 [History] Diltiazem CD (24hr) [Cardizem CD] 240 mg PO QAM 12/18/14 [History] Insulin Glargine,Hum.rec.anlog [Lantus Solostar] 26 unit SQ BID 12/18/14 [ History] Montelukast [Singulair] 10 mg PO QPM 12/18/14 [History] Ferrous Sulfate [Iron] 325 mg PO QAM 04/25/16 [History] Furosemide [Lasix] 20 mg PO DAILY 04/25/16 [History] Vit A/Vit C/Vit E/Zinc/Copper [Preservision Areds Tablet] 1 tab PO BID 04/25/16 [History] Labetalol [Trandate] 100 mg PO TID #90 tablet 04/29/16 [Rx] hydrALAZINE [HydrALAZINE] 25 mg PO BID #60 tablet 04/29/16 [Rx] Darbepoetin [Aranesp] 100 mcg IJ Q2W 11/05/16 [History] Insulin LISPRO [Humalog Kwikpen U-100] 26 unit SQ BIDWM 11/05/16 [History] Allergies acetaminophen [From Percocet] Adverse Reaction (Verified 04/25/16 10:54) Nausea hydrocodone Adverse Reaction (Verified 04/25/16 10:54) Nausea Oxycodone [From Percocet] Adverse Reaction (Verified 04/25/16 10:54) Nausea propoxyphene [From Darvon] Adverse Reaction (Verified 04/25/16 10:53) Nausea Sulfa (Sulfonamide Antibiotics) Adverse Reaction (Verified 04/25/16 10:53) Nausea All Systems PM: A 10-system review of systems was performed and is negative for pertinent findings except as documented above in the HPI. - Constitutional Constitutional: no chills, no fever(s), no night sweats - EENT Eyes: no change in vision, no discharge, no pain, no photophobia Nose, mouth and throat: no dysphagia, no nasal discharge, no neck pain, no sore throat - Cardiovascular Cardiovascular ROS IM: dyspnea, dyspnea on exertion, edema, orthopnea, no chest pain, no diaphoresis, no lightheadedness, no palpitations, no syncope - Respiratory Respiratory: dyspnea on exertion, no cough, no dyspnea, no wheezing, no excessive phlegm production - Gastrointestinal Gastrointestinal: no abdominal pain, no diarrhea, no hematemesis, no hematochezia, no melena, no nausea, no vomiting - Genitourinary Genitourinary: no change in urinary stream, no dysuria, no flank pain, no hematuria - Musculoskeletal Musculoskeletal ROS IM: no numbness, no tingling - Integumentary Integumentary IM: no rash, no unusual bruising - Neurological Neurological ROS: no confusion, no convulsions, no focal weakness, no numbness, no tingling, no tremor(s) - Hematologic/Lymphatic Hematologic/Lymphatic: no easy bruising - Constitutional Vitals: Temp Pulse Resp BP Pulse Ox 97.9 F 76 18 140/65 97 11/05/16 17:52 11/05/16 17:52 11/05/16 17:52 11/05/16 17:52 11/05/16 17:52 General appearance: Present: A&O X 3 - Head Head exam: Present: atraumatic, normocephalic - Eye Eye exam: Present: PERRL, conjuntiva pink, sclera anicteric Pupils: Present: PERRL - Neck Neck exam general surgery: Present: supple, trachea midline. Absent: lymphadenopathy - Respiratory Respiratory exam: Present: decreased breath sounds, rales. Absent: accessory muscle use, rhonchi, wheezes - Cardiovascular Cardiovascular exam: Present: RRR, +S1, +S2. Absent: diastolic murmur, gallop, rubs, systolic murmur - GI/Abdominal GI/Abdominal exam: Present: normal bowel sounds, soft, no peritoneal signs. Absent: distended, tenderness - Extremities Exam Extremities exam: Present: pedal edema, warm, radial pulses palpable and symetrical. Absent: calf tenderness, cyanotic - Neurological Exam Neurological exam: Present: CN II-XII intact, oriented X3, no focal deficits. Absent: pronater drift, facial droop, speech deficit - Skin Skin exam: Present: dry, intact Internal Med - H&P Results - Labs CBC & Chem 7: 11/05/16 15:00 11/05/16 15:00 - EKG Data EKG shows normal: sinus rhythm - Diagnostic Studies Other Images Additional comments: Chest X-Ray 11/05/16 14:40 IMPRESSION: 1. Mild interstitial edema. D/ / Lam Maher MD / Lam Maher MD Interpreting Provider: Lam Maher MD <Noman Padilla - Last Filed: 11/05/16 23:52> Date of Encounter: 11/05/16 - Constitutional Constitutional: weakness - EENT Eyes: no blurry vision, no change in vision - Cardiovascular Cardiovascular ROS IM: dyspnea, dyspnea on exertion, edema, orthopnea, no chest pain - Respiratory Respiratory: dyspnea on exertion, no hemoptysis - Gastrointestinal Gastrointestinal: other (increased girth) - Neurological Neurological ROS: no focal weakness, no frequent falls - Psychiatric Psychiatric: no anxiety, no depression - Allergic/Immunologic Allergic/Immunologic: no uticaria, no GI upset with certain foods - Constitutional Vitals: Temp Pulse Resp BP Pulse Ox 98.3 F 80 25 170/69 90 11/05/16 20:52 11/05/16 20:52 11/05/16 23:41 11/05/16 20:52 11/05/16 23:41 General appearance: Present: mild distress, A&O X 3, pleasant, answers questions appropriately - Eye Eye exam: Present: PERRL. Absent: scleral icterus - ENT ENT exam: Present: mucous membranes moist, normal exam - Neck Neck exam general surgery: Present: supple. Absent: tenderness - Expanded Neck Exam Neck exam: Absent: carotid bruit - Respiratory Respiratory exam: Present: decreased breath sounds, rales. Absent: rhonchi, wheezes - Cardiovascular Cardiovascular exam: Present: distant heart sounds, RRR, +S1, +S2. Absent: diastolic murmur, systolic murmur - GI/Abdominal GI/Abdominal exam: Present: soft. Absent: tenderness - Extremities Exam Extremities exam: Present: pedal edema, warm. Absent: calf tenderness Internal Med - H&P Results - Labs CBC & Chem 7: 11/05/16 15:00 11/05/16 15:00 Labs: Cardiac Enzymes 11/05/16 Range/Units 21:21 Troponin I 0.01 (0-0.03) ng/mL - EKG Data -: EKG Interpreted by Myself EKG shows normal: sinus rhythm - Diagnostic Studies Other Images Status: image reviewed by me (interstitial edema) - Attending Attestation I discussed the patient SANTO DOMINGO, PMH, ROS, lab data, and exam findings with Yolanda Reyna CNP. I then saw and examined patient independently as well. Pt has history of CKD stage 4-5 and chronic diastolic CHF. She now has acute CHF. On her last ECHO, her LVEF is preserved at 55-60% EF. However, she has diastolic dysfunction and mild to moderate pulmonary hypertension. Given her degree of CKD, I prefer Lasix drip rather than Lasix bolus doses. We will continue her on lasix drip until morning and then stop Lasix drip in the morning and re- evluate. Dr. Flores has been consulted as well for her CKD and assistance, if necessary, from a nephrology standpoint. Other than my comments above and noted exam findings, I agree with Yolanda's assessment and plan.
[2016-11-05] MEDS ORDERED: Furosemide 240 MG in D5% in Water 96 ML IVC SCH (19:58)
[2016-11-05] MEDS: Budesonide/Formoterol 160/4.5 MDI IH SCH (20:05)
[2016-11-05] MEDS ORDERED: Insulin DETEMIR 100 UNIT/ML X5UNITS SQ SCH (21:00)
[2016-11-05] MEDS ORDERED: Insulin LISPRO 300 UNITS/3 ML VIAL SQ SCH (21:00)
[2016-11-05] MEDS: hydrALAZINE 25 MG TABLET PO SCH (22:06)
[2016-11-05] MEDS: (Vit A/Vit C/Vit E/Zinc/Copper [Preservision Areds Ta) PO SCH (22:07)
[2016-11-06] MEDS ORDERED: Nitroglycerin 1 INCH/GM PACKET TP SCH (06:00)
[2016-11-06] MEDS ORDERED: *HR* Heparin 5,000 UNIT/ML VIAL SQ SCH (06:00)
[2016-11-06 06:23] LABS: Magnesium 1.6 mg/dL (1.6-2.6); Potassium 4.9 mEq/L (3.5-4.5)
[2016-11-06 06:31] LABS: Basophils % 0.2 %
[2016-11-06 06:33] LABS: Eosinophils # 0.2 K/mcL (0.0-0.6); Eosinophils % 1.9 %; Hemoglobin 8.5 g/dL (11.5-15.4); Immature Granulocytes % 0.6 % (0-4); Lymphocytes # 1.2 K/mcL (0.6-4.6); Lymphocytes % 11.4 %; Mean Corpuscular HGB Conc 30.4 g/dL (31.6-35.5); Mean Corpuscular Hemoglobin 28.2 pg (28.0-33.3); Monocytes # 0.8 K/mcL (0.0-1.3); Monocytes % 7.9 %; Neutrophils # 7.9 K/mcL (1.6-8.9); Platelet Count 212 K/mcL (140-400); Red Blood Count 3.01 M/mcL (3.82-4.97); Red Cell Distribution Width 16.5 % (11.5-14.5)
[2016-11-06] MEDS ORDERED: Insulin LISPRO 300 UNITS/3 ML VIAL SQ SCH (07:30)
[2016-11-06 07:33] LABS: Hypochromasia Present (Not Present)
[2016-11-06] MEDS: Budesonide/Formoterol 160/4.5 MDI IH SCH (07:49)
[2016-11-06] MEDS ORDERED: Cholecalciferol (D-3) 1,000 UNIT TABLET PO SCH (09:00)
[2016-11-06] MEDS ORDERED: Diltiazem CD (24hr) 240 MG CAPSULE PO SCH (09:00)
[2016-11-06] MEDS ORDERED: Furosemide 20 MG TABLET PO SCH (09:00)
[2016-11-06] MEDS ORDERED: Aspirin Enteric Coated 81 MG Tablet PO SCH (09:00)
[2016-11-06] MEDS: hydrALAZINE 25 MG TABLET PO SCH (09:18)
[2016-11-06] MEDS: (Vit A/Vit C/Vit E/Zinc/Copper [Preservision Areds Ta) PO SCH (09:24)
--- NOTE | 2016-11-06 09:55 | Nephrology Consult Note ---
Date of Encounter: 11/06/16 Time of Encounter: 09:15 Assessment and Plan (1) Chronic kidney disease, stage IV (severe) Current Visit: No Status: Chronic (2) Chronic kidney disease Current Visit: Yes Status: Acute CKD 4 in setting of diabetic nephropathy, baseline creat 2.7-3.2. Hyperkalemia improved following Kaexylate 4.9. Diastolic HF, improved respiratory status. Documented urine output 1450 cc. If discharged, will follow in office. Qualifiers: Chronic kidney disease stage: unspecified stage Qualified Code(s): N18.9 - Chronic kidney disease, unspecified History of Present Illness - Reason for Consult Chronic Kidney Disease - History of Present Illness Ms. Bazan is a 70 year old female known to practice with CKD 4, baseline creat 2.7-3.2 in setting of diabetic nephropathy. Last seen in office in July, creat 2.39 at that time. Other PMH- asthma, diastolic CHF, diabetes, hyperlipidemia, hypertension, anemia; receiving aranesp and injectofer. Ms. Bazan presented to ER with worsening dyspnea especially with exertion, orthopnea and increased LE swelling. ECHO in Mar 2016-LVEF of 55-60% with moderate diastolic dysfunction. She is on Lasix at home, states is compliant with fluid restrictions. CXR did showed some mild interstitial edema. BNP 259. She was given IV Lasix in the ER , and placed on lasix drip. K 5.8, given Kaexylate. This morning she is sitting up in chair, states breathing much easier and wants to go home. Renal fct at her baseline, creat 2.59, K 4.9, documented urine output 1450 cc. Past Med Surg Social Fam HX - Past Medical History Medical history: asthma, CHF, diabetes, hyperlipidemia, hypertension, renal disease Psychiatric history: no psych history - Past Surgical History Surgical History: , knee replacement - Social History Smoking Status: Never smoker Smokeless Tobacco Status: No Alcohol use: rarely, occasionally Drug use: none - Family History Mother Family Member Ethnicity: Non- Living Status: Hx Family Cardiac Disorders: Yes Hx Family Respiratory Disorders: No Hx Family Cancer: Yes Hx Family GI Disorders: No Hx Family Endocrine Disorder: No Hx Family Neuromuscular Disorders: No Hx Family Neurologic Disorders: No Hx Family HEENT Disorders: No Hx Family Autoimmune Disorders: No Hx Family Reproductive Disorders: No Hx Family Psychosocial Disorders: No Hx Family Medical Disorders: No Medications and Allergies Albuterol Sulfate [Albuterol Inhaler] 2 puff IH Q4HR 12/18/14 [History] Aspirin Enteric Coated [Aspirin EC] 81 mg PO QAM 12/18/14 [History] Atorvastatin [Lipitor] 40 mg PO QPM 12/18/14 [History] Budesonide/Formoterol 160/4.5 [Symbicort] 2 puff IH BID 12/18/14 [History] Cholecalciferol (Vitamin D3) [Vitamin D3] 2,000 unit PO QAM 12/18/14 [History] Diltiazem CD (24hr) [Cardizem CD] 240 mg PO QAM 12/18/14 [History] Insulin Glargine,Hum.rec.anlog [Lantus Solostar] 26 unit SQ BID 12/18/14 [ History] Montelukast [Singulair] 10 mg PO QPM 12/18/14 [History] Ferrous Sulfate [Iron] 325 mg PO QAM 04/25/16 [History] Furosemide [Lasix] 20 mg PO DAILY 04/25/16 [History] Vit A/Vit C/Vit E/Zinc/Copper [Preservision Areds Tablet] 1 tab PO BID 04/25/16 [History] Labetalol [Trandate] 100 mg PO TID #90 tablet 04/29/16 [Rx] hydrALAZINE [HydrALAZINE] 25 mg PO BID #60 tablet 04/29/16 [Rx] Darbepoetin [Aranesp] 100 mcg IJ Q2W 11/05/16 [History] Insulin LISPRO [Humalog Kwikpen U-100] 26 unit SQ BIDWM 11/05/16 [History] Allergies acetaminophen [From Percocet] Adverse Reaction (Verified 04/25/16 10:54) Nausea hydrocodone Adverse Reaction (Verified 04/25/16 10:54) Nausea Oxycodone [From Percocet] Adverse Reaction (Verified 04/25/16 10:54) Nausea propoxyphene [From Darvon] Adverse Reaction (Verified 04/25/16 10:53) Nausea Sulfa (Sulfonamide Antibiotics) Adverse Reaction (Verified 04/25/16 10:53) Nausea Review of Systems All Systems: reviewed and no additional remarkable complaints except as stated Exam - Vital Signs Vital signs: Initial Vital Signs Temp Pulse Resp BP Pulse Ox 98.3 F 87 18 174/76 95 11/05/16 14:25 11/05/16 14:25 11/05/16 14:25 11/05/16 14:25 11/05/16 14:25 Vital Signs - Last 8 Hours Temp Pulse Resp BP Pulse Ox 11/06/16 07:54 97.7 F 81 18 147/106 94 11/06/16 07:50 18 94 11/06/16 04:22 21 95 Intake and Output 11/05/16 11/06/16 11/06/16 23:59 07:59 15:59 Intake Total 0 / 0 0 / 0 Output Total 1450 / 1450 500 / 500 Balance 0 / 0 -1450 / -1450 -500 / -500 Intake: Oral 0 / 0 0 / 0 Output: Catheter 1450 / 1450 500 / 500 Other: Stool Size Moderate # Voids 1 Weight 109 kg Blood Glucose* 138 110 Patient Weight 11/06/16 23:59 Weight 109 kg - General Appearance General appearance: well-developed, well-nourished, appears started age, obese EENT: mucous membranes moist Neck: no JVD Respiratory: clear Cardiology: edema, regular rate, regular rhythm Additional Comments: mild pitting LE Gastrointestinal: normoactive bowel sounds, no tenderness Integumentary: warm and dry Neurologic: alert and oriented x3 Psychiatric: mood/affect appropriate, cooperative Results - Lab Results 11/06/16 03:34 11/06/16 03:34 Most recent lab results Calcium 9.0 mg/dL (8.6-10.8) 11/06/16 03:34 Magnesium 1.6 mg/dL (1.6-2.6) 11/06/16 03:34 Consult Discharge Plan - Plan Referrals: Polina Crawford MD [Primary Care Provider] -
--- NOTE | 2016-11-06 10:17 | Discharge Summary ---
Date of Encounter: 11/06/16 Time of Encounter: 10:14 - Discharge Diagnosis (1) Congestive heart failure Priority: Primary Status: Chronic Qualifiers: Congestive heart failure type: diastolic Congestive heart failure chronicity: chronic Qualified Code(s): I50.32 - Chronic diastolic (congestive ) heart failure (2) Diabetes mellitus Priority: Secondary Status: Chronic Qualifiers: Diabetes mellitus type: type 2 Diabetes mellitus complication status: with kidney complications Diabetes mellitus complication detail: with chronic kidney disease Diabetes mellitus alf insulin use: with alf use Chronic kidney disease stage: stage 4 (severe) Qualified Code(s): E11.22 - Type 2 diabetes mellitus with diabetic chronic kidney disease; N18.4 - Chronic kidney disease, stage 4 (severe); Z79.4 - technician terminal and repeater (current) use of insulin (3) Hypertension Priority: Secondary Status: Chronic Qualifiers: Hypertension type: essential hypertension Qualified Code(s): I10 - Essential (primary) hypertension (4) Acute respiratory failure with hypoxia Priority: Secondary Status: Resolved - Discharge Medications Home Medications: Albuterol Sulfate [Albuterol Inhaler] 2 puff IH Q4HR 12/18/14 [History] Aspirin Enteric Coated [Aspirin EC] 81 mg PO QAM 12/18/14 [History] Atorvastatin [Lipitor] 40 mg PO QPM 12/18/14 [History] Budesonide/Formoterol 160/4.5 [Symbicort] 2 puff IH BID 12/18/14 [History] Cholecalciferol (Vitamin D3) [Vitamin D3] 2,000 unit PO QAM 12/18/14 [History] Diltiazem CD (24hr) [Cardizem CD] 240 mg PO QAM 12/18/14 [History] Insulin Glargine,Hum.rec.anlog [Lantus Solostar] 26 unit SQ BID 12/18/14 [ History] Montelukast [Singulair] 10 mg PO QPM 12/18/14 [History] Ferrous Sulfate [Iron] 325 mg PO QAM 04/25/16 [History] Furosemide [Lasix] 20 mg PO DAILY 04/25/16 [History] Vit A/Vit C/Vit E/Zinc/Copper [Preservision Areds Tablet] 1 tab PO BID 04/25/16 [History] Labetalol [Trandate] 100 mg PO TID #90 tablet 01/03/17 [Rx] hydrALAZINE [HydrALAZINE] 25 mg PO BID #60 tablet 04/29/16 [Rx] Darbepoetin [Aranesp] 100 mcg IJ Q2W 11/05/16 [History] Insulin LISPRO [Humalog Kwikpen U-100] 26 unit SQ BIDWM 11/05/16 [History] Allergies/Adverse Reactions: Allergies acetaminophen [From Percocet] Adverse Reaction (Verified 04/25/16 10:54) Nausea hydrocodone Adverse Reaction (Verified 04/25/16 10:54) Nausea Oxycodone [From Percocet] Adverse Reaction (Verified 04/25/16 10:54) Nausea propoxyphene [From Darvon] Adverse Reaction (Verified 04/25/16 10:53) Nausea Sulfa (Sulfonamide Antibiotics) Adverse Reaction (Verified 04/25/16 10:53) Nausea Date of admission: 11/05/16 19:53 Primary care physician: Polina Crawford, Consults: 11/05/16 20:00 Consult to Nephrology [CONS] Routine Consulting Provider: [facility] Reason for Consult: CKD 4- CHF excerbation Time Notified: 20:01 Call Completed: No Discharging clinician: Brandon Tristan Anticipated date of discharge: 11/06/16 - Patient Status Disposition: Home, Self-Care Condition: Fair Functional capacity at discharge: uses cane/walker Overall status at discharge: patient is back to baseline - Discharge Instructions Follow Up With: Polina Crawford MD [Primary Care Provider] - Lul Flores DO [Non-Partnered Physician] - - Diet and Activity Activity: increase activity as tolerated Diet: diabetic diet, low fat, low cholesterol, low salt diet Hospital course: Ms. Bazan is a 70 year old female with a history of diastolic CHF, diabetes mellitus, chronic kidney disease stage IV who presents to the emergency room due to increased leg swelling and shortness of breath. She was found to have CHF exacerbation. She was admitted to the hospital and placed on a Lasix drip due to her renal dysfunction. Nephrology was consulted. Overnight, the patient diuresed well and his neck -1.5 L. The patient states that she is feeling much better. She is no longer short of breath and her leg swelling has resolved. She is eager to be discharged home. She has been evaluated by nephrology and cleared for discharge. Her renal function is at her baseline without any acute kidney injury. Respiratory failure resolved. The patient stays at home with her . She uses cane whenever she leaves the home but she is able to walk at home without any assistance. She does not have home health and states that she does not require any assistance. As the patient is doing well on her acute CHF exacerbation has resolved, she has been deemed stable to be discharged back home today. - Time Spent with Patient Total time spent providing and/or coordinating discharge services: - Constitutional Vitals: Temp Pulse Resp BP Pulse Ox 97.7 F 81 18 147/106 94 11/06/16 07:54 11/06/16 07:54 11/06/16 07:54 11/06/16 07:54 11/06/16 07:54 General appearance: Present: A&O X 3, pleasant, no acute distress, answers questions appropriately Exam: Gen.: Lying in bed. No acute distress. Chest: Clear to auscultation bilaterally. No adventitious sounds present. CVS: First and second heart sounds present. No murmurs, rubs or gallops. Mild bilateral pedal edema.
[2016-11-06 10:59] VITALS: BP 139/67
--- NOTE | 2016-11-06 12:02 | Electrocardiograph Report ---
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
== END 2016-11-06 14:05 | disposition home or self-care (01) ==
LOC: 2NENU 14:23 → EMEROO 14:23 → 2NENU 17:38
PROVIDERS: ADMIT Internal Medicine; ATTEND Internal Medicine Sleep Medicine

== ENCOUNTER 2016-11-09 23:47 | Inpatient (IN) ==
--- NOTE | 2016-11-10 00:14 | Emergency Department Note ---
Disposition Clinical Impression: HCAP (healthcare-associated pneumonia), Acute on chronic kidney failure Thoracic back pain Qualifiers: Chronicity: acute Back pain laterality: bilateral Qualified Code(s): M54.6 - Pain in thoracic spine Disposition: Admitted As Inpatient Condition: Good Time of Disposition: 00:56 General Adult HPI - General Chief complaint: ED Back Pain/Injury Stated complaint: "severe pain in back" Time Seen by Provider: 11/09/16 23:55 Source: patient Mode of arrival: ambulatory Limitations: no limitations Nursing Notes Reviewed: Yes Vital Signs Reviewed: Yes - History of Present Illness HPI Narrative: Patient presents to the ED with the chief complaint of back pain. Patient was recently admitted to the hospital for a CHF exacerbation. She was just discharged 3 days ago. States that she actually feels worse now and when she was in the hospital. Reports she was having a lot of difficulty breathing weight gain and lower extremity swelling. At that time. Was placed on IV Lasix and had good diuresis and was feeling better from that standpoint. She went home, and a day later started having a productive thick brown yellow cough. States that she has been coughing a lot and has developed pain in her back. States that it is very much positional. It is worse when she lays down or when she takes a deep breath. It is especially worse when she is coughing. States it is very sharp. It goes away if she holds her breath or is not moving. No associated diaphoresis, changes in vision, nausea, abdominal pain, chest pain. No changes in bowel or bladder function. States that her legs are less swollen than usual. Does have chronic kidney disease, diabetes, coronary artery disease, hypertension. Pain Scale: 7 - Related Data Home Medications Medication Instructions Recorded Confirmed Albuterol Sulfate [Albuterol 2 puff IH Q4HR 12/18/14 11/05/16 Inhaler] Aspirin Enteric Coated [Aspirin EC] 81 mg PO QAM 12/18/14 11/05/16 Atorvastatin [Lipitor] 40 mg PO QPM 12/18/14 11/05/16 Budesonide/Formoterol 160/4.5 2 puff IH BID 12/18/14 11/05/16 [Symbicort] Cholecalciferol (Vitamin D3) 2,000 unit PO QAM 12/18/14 11/05/16 [Vitamin D3] Diltiazem CD (24hr) [Cardizem CD] 240 mg PO QAM 12/18/14 11/05/16 Insulin Glargine,Hum.rec.anlog 26 unit SQ BID 12/18/14 11/05/16 [Lantus Solostar] Montelukast [Singulair] 10 mg PO QPM 12/18/14 11/05/16 Ferrous Sulfate [Iron] 325 mg PO QAM 04/25/16 11/05/16 Furosemide [Lasix] 20 mg PO DAILY 04/25/16 11/05/16 Vit A/Vit C/Vit E/Zinc/Copper 1 tab PO BID 04/25/16 11/05/16 [Preservision Areds Tablet] Darbepoetin [Aranesp] 100 mcg IJ Q2W 11/05/16 11/05/16 Insulin LISPRO [Humalog Kwikpen 26 unit SQ BIDWM 11/05/16 11/05/16 U-100] Previous Rx's Medication Instructions Recorded Labetalol [Trandate] 100 mg PO TID #90 tablet 04/29/16 hydrALAZINE [HydrALAZINE] 25 mg PO BID #60 tablet 04/29/16 Allergies Allergy/AdvReac Type Severity Reaction Status Date / Time acetaminophen [From Percocet] AdvReac Nausea Verified 11/09/16 23:53 hydrocodone AdvReac Nausea Verified 11/09/16 23:53 Oxycodone [From Percocet] AdvReac Nausea Verified 11/09/16 23:53 propoxyphene [From Darvon] AdvReac Nausea Verified 11/09/16 23:53 Sulfa (Sulfonamide AdvReac Nausea Verified 11/09/16 23:53 Antibiotics) Constitutional: Denies: fever, chills Cardiovascular: Reports: edema (improving). Denies: chest pain Respiratory: Reports: cough, sputum production. Denies: dyspnea Gastrointestinal: Denies: abdominal pain, nausea, vomiting Genitourinary: Denies: dysuria, hematuria Musculoskeletal: Reports: as per HPI, back pain Integumentary: Denies: rash Neurological: Denies: headache Past Medical History - Past Medical History Attestation: Yes The following information was validated with the patient. Source: patient Medical history: Reports: asthma, CHF, diabetes, hyperlipidemia, hypertension, renal disease Surgical history: Reports: , knee replacement Psychiatric history: Reports: no psych history - Social History Smoking Status: Never smoker Smokeless Tobacco Status: No Alcohol use: Reports: rarely, occasionally Drug use: Reports: none Physical Exam - General Limitations: no limitations General appearance: alert, in no apparent distress - Head Head exam: atraumatic, normocephalic, normal inspection - Eye Eye exam: Present: normal appearance, PERRL, EOMI - ENT ENT exam: normal exam, normal oropharynx, mucous membranes moist - Neck Neck exam: Present: normal inspection, full ROM, trachea midline - Chest Chest inspection: Present: normal inspection, symmetric chest wall rise. Absent : tenderness - Respiratory Respiratory exam: Present: other (Decreased breath sounds bilateral bases, coarse throughout). Absent: normal lung sounds bilaterally - Cardiovascular Cardiovascular exam: Present: regular rate, normal heart sounds - Abdominal Exam Abdominal exam: Present: soft, Non-Tender - Extremities Exam Extremities exam: Present: pedal edema (2+ pitting bilaterally, patient reports improving) - Back Exam Back exam: Present: tenderness (Patient has moderate pinpoint tenderness over the left posterior ribs and costal thoracic junction. It is reproducible of her pain. Made worse in flexion and extension. Otherwise, no midline tenderness, step-offs or deformities) - Neurological Exam Neurological exam: Present: alert, oriented X3 - Psychiatric Psychiatric exam: Present: normal affect, normal mood - Skin Skin exam: Present: warm, dry, intact, normal color Course Course Narrative: 70-year-old female presenting with back pain and productive cough. Recent admission, putting her at increased risk of hospital-acquired pneumonia. Slightly hypoxic initially upon arrival. Will workup. I do think the back pain is highly musculoskeletal based on exam and patient's description. We will treat her pain to see if this improves. Further disposition pending workup and response to treatment Vital Signs Temperature 98.1 F 11/09/16 23:48 Pulse Rate 75 11/09/16 23:48 Respiratory Rate 18 11/09/16 23:48 Blood Pressure 151/68 11/09/16 23:48 O2 Sat by Pulse Oximetry 89 11/09/16 23:48 Temperature 98.1 F 11/09/16 23:48 Pulse Rate 72 11/10/16 01:24 Respiratory Rate 18 11/10/16 01:24 Blood Pressure 172/65 11/10/16 01:24 O2 Sat by Pulse Oximetry 96 11/10/16 01:24 Oxygen Delivery Oxygen Delivery Nasal Cannula Medical Decision Making - Medical Records Medical records reviewed: Yes I reviewed the patient's medical records. - Lab Data Lab results reviewed: Yes I reviewed the patient's lab results. Result diagrams: 11/10/16 00:20 11/10/16 00:20 Lab Results 11/10/16 11/10/16 11/10/16 Range/Units 00:20 00:20 00:20 WBC 10.3 (4.3-11.1) K/mcL RBC 3.18 L (3.82-4.97) M/mcL Hgb 8.8 L (11.5-15.4) g/dL Hct 29.8 L (35.3-44.9) % MCV 93.7 (83.0-100.0) fL MCH 27.7 L (28.0-33.3) pg MCHC 29.5 L (31.6-35.5) g/dL RDW 16.0 H (11.5-14.5) % Plt Count 277 (140-400) K/mcL MPV 10.1 (9.4-12.4) fL Immature Gran % 0.4 (0-4) % Seg Neutrophils % 79.4 % Lymphocytes % 11.0 % Monocytes % 7.0 % Eosinophils % 2.1 % Basophils % 0.1 % Neutrophils # 8.2 (1.6-8.9) K/mcL Lymphocytes # 1.1 (0.6-4.6) K/mcL Monocytes # 0.7 (0.0-1.3) K/mcL Eosinophils # 0.2 (0.0-0.6) K/mcL Basophils # 0.0 (0.0-0.2) K/mcL Platelet Estimate Normal (Normal) Polychromasia 1+ A (Not Present) Sodium 141 (136-145) mEq/L Potassium 4.8 H (3.5-4.5) mEq/L Chloride 111 H (98-109) mEq/L Carbon Dioxide 21 (19-29) mEq/L BUN 63 H (7-20) mg/dL Creatinine 3.12 H (0.57-1.11) mg/dL Est GFR ( Amer) 18 L (> 60) Est GFR (Non-Af Amer) 15 L (> 60) BUN/Creatinine Ratio 20 (6-26) Glucose 225 H (70-99) mg/dL Calculated Osmolality 317 H (280-300) Lactic Acid 0.8 (0.5-2.2) mmol/L Calcium 9.4 (8.6-10.8) mg/dL Troponin I (0-0.03) ng/mL B-Natriuretic Peptide (0-100) pg/mL Urine Color (Yellow) Urine Clarity (Clear) Urine pH (5.0-8.0) pH Units Ur Specific [place] (1.010-1.025) Urine Protein (Neg-Trace) mg/dL Urine Glucose (UA) (Normal) mg/dL Urine Ketones (Negative) mg/dL Urine Blood (Negative) Urine Nitrite (Negative) Urine Bilirubin (Negative) Urine Urobilinogen (Normal) mg/dL Ur Leukocyte Esterase (Negative) Urine Microscopic RBC (0-3) per hpf Urine Microscopic WBC (0-3) per hpf Amorphous Sediment (Few) Ur Culture Indicated? (NO) 11/10/16 11/10/16 11/10/16 Range/Units 00:20 00:20 00:35 WBC (4.3-11.1) K/mcL RBC (3.82-4.97) M/mcL Hgb (11.5-15.4) g/dL Hct (35.3-44.9) % MCV (83.0-100.0) fL MCH (28.0-33.3) pg MCHC (31.6-35.5) g/dL RDW (11.5-14.5) % Plt Count (140-400) K/mcL MPV (9.4-12.4) fL Immature Gran % (0-4) % Seg Neutrophils % % Lymphocytes % % Monocytes % % Eosinophils % % Basophils % % Neutrophils # (1.6-8.9) K/mcL Lymphocytes # (0.6-4.6) K/mcL Monocytes # (0.0-1.3) K/mcL Eosinophils # (0.0-0.6) K/mcL Basophils # (0.0-0.2) K/mcL Platelet Estimate (Normal) Polychromasia (Not Present) Sodium (136-145) mEq/L Potassium (3.5-4.5) mEq/L Chloride (98-109) mEq/L Carbon Dioxide (19-29) mEq/L BUN (7-20) mg/dL Creatinine (0.57-1.11) mg/dL Est GFR ( Amer) (> 60) Est GFR (Non-Af Amer) (> 60) BUN/Creatinine Ratio (6-26) Glucose (70-99) mg/dL Calculated Osmolality (280-300) Lactic Acid (0.5-2.2) mmol/L Calcium (8.6-10.8) mg/dL Troponin I 0.01 (0-0.03) ng/mL B-Natriuretic Peptide 275 H (0-100) pg/mL Urine Color Yellow (Yellow) Urine Clarity Turbid A (Clear) Urine pH 5.0 (5.0-8.0) pH Units Ur Specific [place] 1.021 (1.010-1.025) Urine Protein 100 H (Neg-Trace) mg/dL Urine Glucose (UA) Normal (Normal) mg/dL Urine Ketones Negative (Negative) mg/dL Urine Blood Negative (Negative) Urine Nitrite Negative (Negative) Urine Bilirubin Negative (Negative) Urine Urobilinogen Normal (Normal) mg/dL Ur Leukocyte Esterase Moderate H (Negative) Urine Microscopic RBC 0-3 (0-3) per hpf Urine Microscopic WBC 5-15 H (0-3) per hpf Amorphous Sediment Many H (Few) Ur Culture Indicated? YES A (NO) - Radiology Data Radiology results reviewed: Yes I reviewed the patient's radiology results. - EKG Data EKG #1 EKG attestation: Yes I reviewed and interpreted this EKG. EKG results narrative: Sinus rhythm, rate 72,. We will 201, QRS 103, QTC 395, borderline left axis deviation, poor R-wave progression, no acute ischemic changes, similar morphology to previous. On 11/05/2016 S.Fadi - S.B.A.RYanira Situation: Demographics, MOA Background: Presenting Complaint, Relevant PMH, Meds, & Allergies Assessment: Vital Signs, Course and respsone to treatment, Exam Concerns, Patient/Family Expectation, Pertinant Lab Results, Outstanding Labs Recommendation: Recommendation based on pending studies, treatments, or consults S.B.AAlex Report Given to: Dr. Aure CarpioR. Repor Time: 01:27 Attestation Statement - Attestation Attestation: I personally interviewed and examined this patient and my medical decision- making was reviewed with the ED Resident Physician, Dr. Mccurdy. I agree with the documented findings, disposition and treatment plan as described except to the extent set forth below. Patient is a 70-year-old white female with a history of CHF who presents to the emergency department 3 days following recent discharge from the hospital for acute exacerbation of CHF. Today she presents with complaints of moist productive cough, with gradually worsening shortness of breath over the past 24 hours. Patient arrives tachycardic and hypoxic on room air, no supplemental oxygen use at home. Patient denies any fevers or chills but has had some associated nausea. Patient denies any form of chest pain pressure or heaviness , no diaphoresis, no posttussive emesis. Patient denies any increase in lower extremity edema anything she feels this is been continuing to improve since she was discharged. I agree with patient's physical exam findings as documented. Patient was placed on monitoring and evaluation advisor continuous pulse ox and suppl O2. Labs and blood cultures were drawn and chest x-ray was obtained. EKG shows a sinus rhythm with no acute ischemic changes. Chest x-ray shows a retrocardiac infiltrate, no pulmonary edema or pleural effusions. Patient was started on antibiotics to cover healthcare acquired pneumonia. He should not is maintaining her O2 saturations on nasal cannula oxygen. On her lab evaluation patient with some acute on chronic renal insufficiency otherwise no acute abnormalities. Patient will be admitted for healthcare acquired pneumonia with hypoxia. Discussed the case with the hospitalist who accepted the patient for admission for further evaluation and management.
[2016-11-10] MEDS ORDERED: *HR* HYDROmorphone (PF) 1 MG/ML SYRINGE IVP ONE (00:22)
[2016-11-10] MEDS ORDERED: Ondansetron 4 MG/2 ML VIAL IVP ONE (00:23)
[2016-11-10 00:33] LABS: Basophils % 0.1 %; Hemoglobin 8.8 g/dL (11.5-15.4); Mean Platelet Volume 10.1 fL (9.4-12.4)
[2016-11-10 00:34] LABS: Eosinophils # 0.2 K/mcL (0.0-0.6); Eosinophils % 2.1 %; Hematocrit 29.8 % (35.3-44.9); Immature Granulocytes % 0.4 % (0-4); Lymphocytes # 1.1 K/mcL (0.6-4.6); Mean Corpuscular HGB Conc 29.5 g/dL (31.6-35.5); Mean Corpuscular Hemoglobin 27.7 pg (28.0-33.3); Mean Corpuscular Volume 93.7 fL (83.0-100.0); Monocytes # 0.7 K/mcL (0.0-1.3); Neutrophils # 8.2 K/mcL (1.6-8.9); Platelet Count 277 K/mcL (140-400); Red Blood Count 3.18 M/mcL (3.82-4.97); Segmented Neutrophils % 79.4 %
[2016-11-10 00:46] LABS: Bilirubin,Urine Negative (Negative); Blood,Urine Negative (Negative); Clarity,Urine Turbid (Clear); Color,Urine Yellow (Yellow); Glucose,Urine (UA) Normal (Normal); Ketones,Urine Negative (Negative); Leukocyte Esterase,Urine Moderate (Negative); Nitrite,Urine Negative (Negative); Protein,Urine 100 mg/dL (Neg-Trace); Specific Gravity,Urine 1.021 (1.010-1.025); Urobilinogen,Urine Normal (Normal)
[2016-11-10 00:46] LABS: Calcium 9.4 mg/dL (8.6-10.8); Potassium 4.8 mEq/L (3.5-4.5)
[2016-11-10 00:49] LABS: Platelet Estimate Normal (Normal); Polychromasia 1+ (Not Present)
[2016-11-10] MEDS ORDERED: Levofloxacin 750 MG/150 ML 750 MG/150 ML BAG IVPB ONE (00:51)
[2016-11-10] MEDS ORDERED: Vancomycin 1,500 MG in D5% in Water 250 ML IVPB ONE (00:51)
[2016-11-10] MEDS ORDERED: Piperacillin/Tazobactam 4.5 GM in D5% in Water (Mini-Bag+) 100 ML IVPB ONE (00:51)
[2016-11-10 00:56] LABS: Amorphous Sediment,Urine Many (Few); RBC,Urine 0-3 per hpf (0-3)
[2016-11-10] MEDS ORDERED: 0.9 % Sodium Chloride 1,000 ML IVC SCH (01:30)
--- NOTE | 2016-11-10 04:02 | Internal Med History&Physical ---
Date of Encounter: 11/10/16 Time of Encounter: 04:00 Assessment and Plan (1) HCAP (healthcare-associated pneumonia) Current visit: Yes Status: Acute Chest x-ray shows retrocardiac infiltrate. Empirically treat with IV vancomycin , zosyn and levofloxacin. Sputum cultures (2) Respiratory failure with hypoxia Current visit: Yes Status: Acute Thank you due to pneumonia. Treat with oxygen Qualifiers: Chronicity: acute Qualified Code(s): J96.01 - Acute respiratory failure with hypoxia (3) Urinary tract infection Current visit: Yes Status: Acute Urine cultures. Continue with zosyn. Qualifiers: Urinary tract infection type: site unspecified Hematuria presence: without hematuria Qualified Code(s): N39.0 - Urinary tract infection, site not specified (4) Acute on chronic kidney failure Current visit: Yes Status: Acute Monitor renal function Qualifiers: Acute renal failure type: unspecified Chronic kidney disease stage: stage 4 (severe) Qualified Code(s): N17.9 - Acute kidney failure, unspecified; N18.4 - Chronic kidney disease, stage 4 (severe) (5) Chronic kidney disease, stage IV (severe) Current visit: Yes Status: Chronic Monitor renal function. Avoid nephrotoxics. (6) Diabetes mellitus Current visit: Yes Status: Chronic Sliding scale insulin. 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 Stable. Monitor H&H (8) Morbid obesity with BMI of 40.0-44.9, adult Current visit: Yes Status: Chronic Supportive care (9) DVT prophylaxis Current visit: Yes Status: Acute SubQ heaprin Internal Medicine - H&P: HPI Chief complaint: Cough with expectoration Admitted From: Emergency Dept Plans for Post Hospital Care: Home History of present illness: Ms. Bazan is a 70 year old female with past medical history of asthma and CHF recent hospitalization for CHF exacerbation and was treated with diuretics, diabetes, anemia,coronary disease, hypertension, CKD stage IV, obstructive sleep apnea. She was admitted to the hospitalist service on 11/05/2016 for CHF exacerbation and was discharged on 11/06/2016. She reports feeling improved at discharge time. She reports that she has cough prior to discharge, but there was no sputum production. After she was discharged she started having the cough with yellowish sputum, no hemoptysis. She also reports sharp,pleuritic chest pain on the left side of the chest at the back, which is improved with pain medication in the ER. She denies any worsening of for shortness of breath. She denies fever, chills. She reports some nausea but no vomiting. She denies abdominal pain, dysuria, hematuria, changes in bowel habits. She has chronic leg swelling. She was evaluated in emergency department and chest x-ray reported retrocardiac infiltrate. She was thought to have healthcare associated pneumonia, and was given intravenous vancomycin, Zosyn and levofloxacin. She is admitted to the hospitalist service for further workup and management. Past Med Surg Social Fam HX - Past Medical History Medical history: asthma, CHF, diabetes, hyperlipidemia, hypertension, renal disease Psychiatric history: no psych history - Past Surgical History Surgical History: , knee replacement - Social History Smoking Status: Never smoker Smokeless Tobacco Status: No Alcohol use: rarely, occasionally Drug use: none - Family History Mother Name: gage guan Family Member Ethnicity: Non- Living Status: Hx Family Cardiac Disorders: Yes Hx Family Respiratory Disorders: No Hx Family Cancer: Yes Hx Family GI Disorders: No Hx Family Endocrine Disorder: No Hx Family Neuromuscular Disorders: No Hx Family Neurologic Disorders: No Hx Family HEENT Disorders: No Hx Family Autoimmune Disorders: No Internal Medicine - H&P: Meds Albuterol Sulfate [Albuterol Inhaler] 2 puff IH Q4HR 12/18/14 [History] Aspirin Enteric Coated [Aspirin EC] 81 mg PO QAM 12/18/14 [History] Atorvastatin [Lipitor] 40 mg PO QPM 12/18/14 [History] Budesonide/Formoterol 160/4.5 [Symbicort] 2 puff IH BID 12/18/14 [History] Cholecalciferol (Vitamin D3) [Vitamin D3] 2,000 unit PO QAM 12/18/14 [History] Diltiazem CD (24hr) [Cardizem CD] 240 mg PO QAM 12/18/14 [History] Insulin Glargine,Hum.rec.anlog [Lantus Solostar] 26 unit SQ BID 12/18/14 [ History] Montelukast [Singulair] 10 mg PO QPM 12/18/14 [History] Ferrous Sulfate [Iron] 325 mg PO QAM 04/25/16 [History] Furosemide [Lasix] 20 mg PO DAILY 04/25/16 [History] Vit A/Vit C/Vit E/Zinc/Copper [Preservision Areds Tablet] 1 tab PO BID 04/25/16 [History] Labetalol [Trandate] 100 mg PO TID #90 tablet 04/29/16 [Rx] hydrALAZINE [HydrALAZINE] 25 mg PO BID #60 tablet 04/29/16 [Rx] Darbepoetin [Aranesp] 100 mcg IJ Q2W 11/05/16 [History] Insulin LISPRO [Humalog Kwikpen U-100] 26 unit SQ BIDWM 11/05/16 [History] Allergies acetaminophen [From Percocet] Adverse Reaction (Verified 11/09/16 23:53) Nausea hydrocodone Adverse Reaction (Verified 11/09/16 23:53) Nausea Oxycodone [From Percocet] Adverse Reaction (Verified 11/09/16 23:53) Nausea propoxyphene [From Darvon] Adverse Reaction (Verified 11/09/16 23:53) Nausea Sulfa (Sulfonamide Antibiotics) Adverse Reaction (Verified 11/09/16 23:53) Nausea All Systems PM: A 10-system review of systems was performed and is negative for pertinent findings except as documented above in the HPI. - Constitutional Vitals: Temp Pulse Resp BP Pulse Ox 98.3 F 73 18 138/62 92 11/10/16 02:17 11/10/16 02:17 11/10/16 02:17 11/10/16 02:11/10/16 02:17 Exam: General: Not in acute distress at the time of my evaluation HEENT: Oral mucosa is moist. No conjunctival palor or scleral icterus Neck: No obvious neck swellings Lungs: Left posterior basal crackles present Cardiac: Regular rate and rhythm. No significant murmurs Abdomen: Soft, non tender. Bowel sounds present Genitourinary: No ochoa catheter Neurological: Alert and oriented. No gross localizing deficits Psych: Not aggressive or agitated Extremities: B/ leg edema Skin: No generalized rash Internal Med - H&P Results - Labs CBC & Chem 7: 11/10/16 00:20 11/10/16 00:20 - EKG Data -: EKG Interpreted by Myself EKG shows normal: sinus rhythm - EKG Data EKG comments: Poor R wave progression in the anterior chest leads 11/10/16 04:02 - Impressions ITS Impressions Chest X-Ray 11/10/16 00:09 IMPRESSION: Small retrocardiac opacity, could represent and focal area of atelectasis or consolidation. Otherwise similar appearance of diffuse vascular congestion and stable moderate cardiomegaly. D/ / Juanpablo Lewis MD / Juanpablo Lewis MD Interpreting Provider: Juanpablo Lewis MD
[2016-11-10] MEDS ORDERED: Naloxone 0.4 MG/ML INJ IVP PRN (04:06)
[2016-11-10] MEDS ORDERED: *HR* Promethazine 25 MG/ML VIAL IVP PRN (04:06)
[2016-11-10] MEDS ORDERED: Dextrose Gel 15 GM PO PRN ×2 (04:26)
[2016-11-10] MEDS ORDERED: *HR* Dextrose 50 % in Water (Syg) 50 ML SYRINGE IVP PRN (04:26)
[2016-11-10] MEDS ORDERED: D5% in Water 1,000 ML IVC PRN (04:26)
[2016-11-10] MEDS ORDERED: Vancomycin 1,500 MG in D5% in Water 250 ML IVPB SCH (05:00)
[2016-11-10] MEDS ORDERED: Piperacillin/Tazobactam 3.375 GM in D5% in Water (Mini-Bag+) 100 ML IVPB SCH (06:00)
[2016-11-10] MEDS: *HR* Heparin 5,000 UNIT/ML VIAL SQ SCH ×3 (06:11→21:59)
[2016-11-10] MEDS ORDERED: Ondansetron 4 MG/2 ML VIAL IVP PRN (06:41)
[2016-11-10] MEDS ORDERED: Insulin LISPRO 300 UNITS/3 ML VIAL SQ SCH ×2 (07:30→21:00)
[2016-11-10] MEDS: Insulin LISPRO 300 UNITS/3 ML VIAL SQ SCH ×4 (09:19→21:59)
[2016-11-10] MEDS ORDERED: Lidocaine -MPF 1% 5 ML AMPUL INFILT ONE (11:08)
--- NOTE | 2016-11-10 11:53 | Event Note ---
Date of Encounter: 11/10/16 Time of Encounter: 10:45 Patient admitted early today morning as she presented to the emergency room due to back pain. She states that the pain started about 2-3 days back on the right upper back and later migrated to the left upper back. She describes the pain as stabbing sensation that is aggravated with deep breathing and coughing and relieved with resting. She also reports production of thick yellow sputum that started 1-2 days after discharge from the hospital. She denies any fever or chills. She denies any worsening shortness of breath except catching her breath due to the back pain. On exam, patient is extremely tender to palpation on the left upper back in the infrascapular region. Bilateral basal crepitations present. First and second heart sounds present. Assessment/plan: 1. Bacterial pneumonia-patient does not have fever, temperature, leukocytosis. She does have pleuritic pain in the left upper back. Chest x-ray revealed a small retrocardiac opacity which could represent consolidation. Patient will be switched to by mouth Levaquin. Discontinue all IV antibiotics. Monitor the patient. Breathing treatments as needed. Guaifenesin. 2. Diastolic congestive heart failure-patient has bilateral basal crepitations. However, her renal function has also worsened slightly from baseline. Hold Lasix and monitor renal function. If renal function does not improve with holding Lasix, will resume Lasix and monitor renal function. Avoid hypotension or nephrotoxic medications. 3. Mild acute kidney injury on chronic kidney disease stage IV-as mentioned above, hold Lasix for now. If renal function does not improve with holding Lasix, resume Lasix for her diastolic CHF. 4. 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
[2016-11-10] MEDS: Ondansetron ODT 4 MG TAB.RAPDIS SL PRN ×2 (12:44→19:46)
[2016-11-10] MEDS: Gentamicin OPTH Soln 5 ML BOTTLE RIGHT EYE SCH ×3 (16:50→21:58)
[2016-11-10] MEDS: Budesonide/Formoterol 160/4.5 MDI IH SCH (21:03)
[2016-11-10] MEDS: hydrALAZINE 25 MG TABLET PO SCH (21:58)
[2016-11-10] MEDS: Insulin DETEMIR 100 UNIT/ML X5UNITS SQ SCH (22:00)
[2016-11-10 22:12] LABS: Calcium 9.5 mg/dL (8.6-10.8); Magnesium 1.7 mg/dL (1.6-2.6); Potassium 5.1 mEq/L (3.5-4.5)
[2016-11-10] MEDS ORDERED: *HR* Promethazine 25 MG/ML VIAL IVP ONE (22:21)
[2016-11-11] MEDS ORDERED: Acetaminophen 325 MG TABLET PO ONE (00:41)
[2016-11-11] MEDS: *HR* Heparin 5,000 UNIT/ML VIAL SQ SCH ×3 (06:00→21:04)
--- NOTE | 2016-11-11 06:20 | Electrocardiograph Report ---
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
[2016-11-11 06:29] LABS: Calcium 9.3 mg/dL (8.6-10.8)
[2016-11-11 06:32] LABS: Potassium 5.5 mEq/L (3.5-4.5)
[2016-11-11 06:41] LABS: Basophils % 0.3 %; Eosinophils # 0.4 K/mcL (0.0-0.6); Eosinophils % 3.9 %; Hematocrit 27.7 % (35.3-44.9); Hemoglobin 8.1 g/dL (11.5-15.4); Immature Granulocytes % 1.8 % (0-4); Lymphocytes # 1.4 K/mcL (0.6-4.6); Lymphocytes % 14.6 %; Mean Corpuscular HGB Conc 29.2 g/dL (31.6-35.5); Mean Corpuscular Hemoglobin 27.2 pg (28.0-33.3); Monocytes # 0.6 K/mcL (0.0-1.3); Monocytes % 6.5 %; Neutrophils # 6.9 K/mcL (1.6-8.9); Nucleated Red Blood Cells 0.2 /100 WBC (0); Platelet Count 250 K/mcL (140-400); Red Blood Count 2.98 M/mcL (3.82-4.97); Red Cell Distribution Width 15.9 % (11.5-14.5); Segmented Neutrophils % 72.9 %
[2016-11-11 07:09] LABS: Platelet Estimate Normal (Normal)
[2016-11-11] MEDS: Insulin LISPRO 300 UNITS/3 ML VIAL SQ SCH ×4 (07:34→21:04)
[2016-11-11] MEDS: Budesonide/Formoterol 160/4.5 MDI IH SCH ×2 (08:05→22:04)
[2016-11-11] MEDS: Aspirin Enteric Coated 81 MG Tablet PO SCH (08:28)
[2016-11-11] MEDS: levoFLOXacin 500 MG TABLET PO SCH (08:28)
[2016-11-11] MEDS: Diltiazem CD (24hr) 240 MG CAPSULE PO SCH (08:28)
[2016-11-11] MEDS: hydrALAZINE 25 MG TABLET PO SCH ×2 (08:29→21:05)
[2016-11-11] MEDS: Cholecalciferol (D-3) 1,000 UNIT TABLET PO SCH (08:29)
[2016-11-11] MEDS: Insulin DETEMIR 100 UNIT/ML X5UNITS SQ SCH ×2 (08:38→21:05)
[2016-11-11] MEDS: Gentamicin OPTH Soln 5 ML BOTTLE RIGHT EYE SCH ×4 (08:38→21:04)
[2016-11-11] MEDS ORDERED: Levofloxacin 500 MG/100 ML 500 MG/100 ML BAG IVPB SCH (09:00)
[2016-11-11] MEDS ORDERED: Aminoglycoside Consult 1 EACH MC ONE (09:17)
--- NOTE | 2016-11-11 11:35 | Internal Med Progress Note ---
Date of Encounter: 11/11/16 Time of Encounter: 11:33 - Assessment and plan (1) Acute respiratory failure with hypoxia Current Visit: No Status: Resolved Assessment and plan: Secondary to pneumonia will continue PO abx at this time patient clinically improving however noted to remain hypoxic without O2 supplementation Pt might need to be discharged to home with home oxygen therapy will continue to closely monitor f/u blood cultures (2) HCAP (healthcare-associated pneumonia) Current Visit: Yes Status: Acute Assessment and plan: as listed above (3) Yzlxp-ap-rkkvxep kidney injury Current Visit: Yes Status: Acute Assessment and plan: likely multifactorial (infectious vs. drug induced) will continue to hold Lasix at this time nephrology evaluation appreciated Qualifiers: Acute renal failure type: unspecified Chronic kidney disease stage: stage 4 (severe) Qualified Code(s): N17.9 - Acute kidney failure, unspecified; N18.4 - Chronic kidney disease, stage 4 (severe) (4) Congestive heart failure Current Visit: No Status: Chronic Assessment and plan: not in acute exacerbation will continue to closely monitor Qualifiers: Congestive heart failure type: diastolic Congestive heart failure chronicity: chronic Qualified Code(s): I50.32 - Chronic diastolic (congestive ) heart failure (5) Diabetes mellitus Current Visit: Yes Status: Chronic Assessment and plan: pt noted to be hyperglycemic but also reported of refusing bedtime levemir dosage pt educated about the need to be compliant with medications continue SS insulin algorithm will continue to monitor FS and BG will adjust insulin therapy as per the BG readings and insulin requirements Qualifiers: Diabetes mellitus type: type 2 Diabetes mellitus complication status: with kidney complications Diabetes mellitus complication detail: with chronic kidney disease Diabetes mellitus intermediate insulin use: with intermediate use Chronic kidney disease stage: stage 4 (severe) Qualified Code(s): E11.22 - Type 2 diabetes mellitus with diabetic chronic kidney disease; N18.4 - Chronic kidney disease, stage 4 (severe); Z79.4 - [facility] (current) use of insulin (6) DVT prophylaxis Current Visit: Yes Status: Acute Assessment and plan: Heparin SQ (7) Morbid obesity with BMI of 40.0-44.9, adult Current Visit: Yes Status: Chronic (8) Normocytic anemia Current Visit: Yes Status: Chronic Assessment and plan: H&H low but acceptable no acute bleeding reported at this time pt noted to be on iron supplementation, will continue will continue to monitor H&H (9) Urinary tract infection Current Visit: Yes Status: Acute Assessment and plan: continue oral abx f/u urine cultures Qualifiers: Urinary tract infection type: site unspecified Hematuria presence: without hematuria Qualified Code(s): N39.0 - Urinary tract infection, site not specified - Subjective Interval history: Pt seen and examined with family present at bedside. Resting in chair and reports of feeling better compared to the previous day. Denies any sob or chest pain at this time. States she had a rough night and was not able to get any rest. - Constitutional Vitals: Temp Pulse Resp BP Pulse Ox 98.3 F 73 16 139/61 94 11/11/16 11:11 11/11/16 11:11 11/11/16 11:11 11/11/16 11:11 11/11/16 11:11 General appearance: Present: A&O X 3, morbidly obese, no acute distress, answers questions appropriately - Head Head exam: Present: atraumatic, normocephalic - Eye Eye exam: Present: conjuntiva pink, sclera anicteric - Respiratory Respiratory exam: Present: decreased breath sounds. Absent: respiratory distress, wheezes - Cardiovascular Cardiovascular exam: Present: RRR, +S1, +S2. Absent: diastolic murmur, gallop, rubs, systolic murmur - GI/Abdominal GI/Abdominal exam: Present: distended (obese), normal bowel sounds, soft. Absent: tenderness - Extremities Exam Extremities exam: Present: warm, radial pulses palpable and symetrical. Absent : calf tenderness, cyanotic, pedal edema - Neurological Exam Neurological exam: Present: alert, oriented X3 - Psychiatric Psychiatric exam: Present: normal affect, normal mood Internal Medicine: Result - Labs CBC & Chem 7: 11/11/16 05:50 11/11/16 05:50 Labs: Short CBC 11/11/16 Range/Units 05:50 WBC 9.5 (4.3-11.1) K/mcL Hgb 8.1 L (11.5-15.4) g/dL Hct 27.7 L (35.3-44.9) % Plt Count 250 (140-400) K/mcL Neutrophils # 6.9 (1.6-8.9) K/mcL BMP 11/10/16 11/11/16 21:14 05:50 Sodium 140 140 Potassium 5.1 H 5.5 H Chloride 111 H 114 H Carbon Dioxide 22 19 BUN 69 H 69 H Creatinine 3.34 H 3.31 H Glucose 209 H 138 H Calcium 9.5 9.3 Consult Discharge Plan - Plan Referrals: Polina Crawford MD [Primary Care Provider] -
[2016-11-11] MEDS ORDERED: Insulin DETEMIR 100 UNIT/ML X5UNITS SQ ONE (12:41)
--- NOTE | 2016-11-11 13:11 | Nephrology Consult Note ---
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 Acute kidney injury is in the setting of recent hospital admission for acute on chronic diastolic congestive heart failure, pneumonia, urinary tract infection, and decreased oral intake as an outpatient. Her Lasix has been placed on hold. She is starting to eat and drink better today. I would continually for Lasix on hold. Avoid all nephrotoxins. Continue to monitor her renal function. I am hopeful that her renal function returned back to her previous baseline levels with a creatinine of 2.5-2.7. (2) Chronic kidney disease (CKD), stage IV (severe) Current Visit: Yes Status: Acute (3) Pneumonia Current Visit: Yes Status: Acute Qualifiers: Pneumonia type: due to unspecified organism Laterality: unspecified laterality Lung location: unspecified part of lung Qualified Code(s): J18.9 - Pneumonia, unspecified organism (4) Urinary tract infection Current Visit: Yes Status: Acute Qualifiers: Urinary tract infection type: site unspecified Hematuria presence: without hematuria Qualified Code(s): N39.0 - Urinary tract infection, site not specified History of Present Illness - History of Present Illness This is a 70-year-old female who is followed as an outpatient for stage IV chronic kidney disease in the setting of diabetes. Baseline creatinine is 2.5- 2.7. Patient was admitted to the hospital last week with acute on chronic diastolic congestive heart failure. She underwent diuresis. Her renal function remains stable and she was subsequently discharged home. After one day being at home the patient developed a worsening cough and left-sided pleuritic chest pain and sputum production. She was subsequently readmitted to the hospital. She has been diagnosed with pneumonia based on her symptoms and chest x-ray finding of a retrocardiac opacity. Patient currently is feeling better. She says her shortness of breath is better. Her pleuritic chest pain is better. She does have acute kidney injury superimposed on her chronic kidney disease. Creatinine appears to have plateaued at about 3.31. Her Lasix and placed on hold. She also appears to have a urinary tract infection. Urine cultures are growing gram-negative rods. Blood cultures are unremarkable. Past Med Surg Social Fam HX - Past Medical History Medical history: asthma, CHF, diabetes, hyperlipidemia, hypertension, renal disease Psychiatric history: no psych history - Past Surgical History Surgical History: , knee replacement - Social History Smoking Status: Never smoker Smokeless Tobacco Status: No Alcohol use: rarely, occasionally Drug use: none - Family History Mother Name: gage guan Family Member Ethnicity: Non- Living Status: Hx Family Cardiac Disorders: Yes Hx Family Respiratory Disorders: No Hx Family Cancer: Yes Hx Family GI Disorders: No Hx Family Endocrine Disorder: No Hx Family Neuromuscular Disorders: No Hx Family Neurologic Disorders: No Hx Family HEENT Disorders: No Hx Family Autoimmune Disorders: No Medications and Allergies Albuterol Sulfate [Albuterol Inhaler] 2 puff IH Q4HR 12/18/14 [History] Aspirin Enteric Coated [Aspirin EC] 81 mg PO QAM 12/18/14 [History] Atorvastatin [Lipitor] 40 mg PO QPM 12/18/14 [History] Budesonide/Formoterol 160/4.5 [Symbicort] 2 puff IH BID 12/18/14 [History] Cholecalciferol (Vitamin D3) [Vitamin D3] 2,000 unit PO QAM 12/18/14 [History] Diltiazem CD (24hr) [Cardizem CD] 240 mg PO QAM 12/18/14 [History] Insulin Glargine,Hum.rec.anlog [Lantus Solostar] 26 unit SQ BID 12/18/14 [ History] Montelukast [Singulair] 10 mg PO QPM 12/18/14 [History] Ferrous Sulfate [Iron] 325 mg PO QAM 04/25/16 [History] Furosemide [Lasix] 20 mg PO DAILY 04/25/16 [History] Vit A/Vit C/Vit E/Zinc/Copper [Preservision Areds Tablet] 1 tab PO BID 04/25/16 [History] Labetalol [Trandate] 100 mg PO TID #90 tablet 04/29/16 [Rx] hydrALAZINE [HydrALAZINE] 25 mg PO BID #60 tablet 04/29/16 [Rx] Darbepoetin [Aranesp] 100 mcg IJ Q2W 11/05/16 [History] Insulin LISPRO [Humalog Kwikpen U-100] 26 unit SQ BIDWM 11/05/16 [History] Allergies acetaminophen [From Percocet] Adverse Reaction (Verified 11/09/16 23:53) Nausea hydrocodone Adverse Reaction (Verified 11/09/16 23:53) Nausea Oxycodone [From Percocet] Adverse Reaction (Verified 11/09/16 23:53) Nausea propoxyphene [From Darvon] Adverse Reaction (Verified 11/09/16 23:53) Nausea Sulfa (Sulfonamide Antibiotics) Adverse Reaction (Verified 11/09/16 23:53) Nausea Review of Systems Constitutional: as per HPI Eyes: bilateral: blurred vision (patient denies), diplopia (patient denies) Cardiovascular: chest pain, chest pain at rest, dyspnea, dyspnea on exertion, edema, no palpitations Respiratory: cough, dyspnea, dyspnea on exertion, excessive phlegm production Gastrointestinal: no abdominal pain, no change in bowel habits Musculoskeletal: no muscle weakness, no numbness Neurological: as per HPI Psychiatric: no depression, no difficulty concentrating Endocrine: as per HPI Hematologic/Lymphatic: no easy bruising, no lymphadenopathy Exam - Vital Signs Vital signs: Initial Vital Signs Temp Pulse Resp BP Pulse Ox 98.1 F 75 18 151/68 89 11/09/16 23:48 11/09/16 23:48 11/09/16 23:48 11/09/16 23:48 11/09/16 23:48 Vital Signs - Last 8 Hours Temp Pulse Resp BP Pulse Ox 11/11/16 11:11 98.3 F 73 16 139/61 94 11/11/16 08:06 20 192/81 96 11/11/16 06:39 98.3 F 91 18 192/81 97 11/11/16 06:00 82/54 Intake and Output 11/10/16 11/11/16 11/11/16 23:59 07:59 15:59 Intake Total 60 / 60 0 / 0 660 / 660 Output Total 200 / 200 0 / 0 200 / 200 Balance -140 / -140 0 / 0 460 / 460 Intake: Oral 60 / 60 0 / 0 660 / 660 Output: Urine 200 / 200 0 / 0 200 / 200 Other: Meal Dinner Breakfast Percent of Meal Consumed 75% 100% # Voids 1 Weight 105.2 kg 106.1 kg 106.1 kg Blood Glucose* 203 132 240 Patient Weight 11/11/16 23:59 Weight 106.1 kg - General Appearance Exam: Patient is sitting up in a chair. She is alert and oriented. Vital signs are stable. Lungs sounds. Basilar rales on the left. Heart regular rate and rhythm with a 2/6 ejection murmur. Abdomen shows normal bowel sounds number no bruits masses organomegaly or tenderness. Lower examination trace lower extremity swelling. Results - Lab Results 11/11/16 05:50 11/11/16 05:50 Most recent lab results Calcium 9.3 mg/dL (8.6-10.8) 11/11/16 05:50 Magnesium 1.7 mg/dL (1.6-2.6) 11/10/16 21:14 Consult Discharge Plan - Plan Referrals: Polina Crawford MD [Primary Care Provider] -
[2016-11-12 05:45] LABS: Hemoglobin 7.8 g/dL (11.5-15.4)
[2016-11-12 05:47] LABS: Basophils % 0.3 %; Eosinophils # 0.4 K/mcL (0.0-0.6); Eosinophils % 3.5 %; Hematocrit 26.2 % (35.3-44.9); Lymphocytes # 1.2 K/mcL (0.6-4.6); Lymphocytes % 12.1 %; Mean Corpuscular HGB Conc 29.8 g/dL (31.6-35.5); Mean Corpuscular Hemoglobin 27.7 pg (28.0-33.3); Mean Corpuscular Volume 92.9 fL (83.0-100.0); Mean Platelet Volume 10.6 fL (9.4-12.4); Monocytes # 0.6 K/mcL (0.0-1.3); Neutrophils # 7.7 K/mcL (1.6-8.9); Platelet Count 238 K/mcL (140-400); Red Blood Count 2.82 M/mcL (3.82-4.97); Segmented Neutrophils % 75.1 %
[2016-11-12] MEDS: *HR* Heparin 5,000 UNIT/ML VIAL SQ SCH ×3 (06:00→20:50)
[2016-11-12 06:02] LABS: Calcium 9.2 mg/dL (8.6-10.8); Magnesium 1.8 mg/dL (1.6-2.6); Potassium 5.4 mEq/L (3.5-4.5)
[2016-11-12 06:25] LABS: Hypochromasia Present (Not Present); Platelet Estimate Normal (Normal)
[2016-11-12] MEDS: Budesonide/Formoterol 160/4.5 MDI IH SCH ×2 (07:54→20:07)
[2016-11-12] MEDS: Aspirin Enteric Coated 81 MG Tablet PO SCH (08:43)
[2016-11-12] MEDS: Cholecalciferol (D-3) 1,000 UNIT TABLET PO SCH (08:43)
[2016-11-12] MEDS: hydrALAZINE 25 MG TABLET PO SCH ×2 (08:43→20:50)
[2016-11-12] MEDS: Diltiazem CD (24hr) 240 MG CAPSULE PO SCH (08:43)
[2016-11-12] MEDS: Insulin LISPRO 300 UNITS/3 ML VIAL SQ SCH ×4 (08:43→20:51)
[2016-11-12] MEDS: Gentamicin OPTH Soln 5 ML BOTTLE RIGHT EYE SCH (08:44)
--- NOTE | 2016-11-12 08:44 | Nephrology Progress Note ---
Date of Encounter: 11/12/16 Time of Encounter: 08:25 - Assessment and Plan (1) Acute on chronic kidney failure Current Visit: Yes Status: Acute ELIUD in setting of recent hospital admission for acute on chronic diastolic congestive heart failure, pneumonia, urinary tract infection, and decreased oral intake as an outpatient. Renal fct slight worse creat 3.5, baseline 2.5- 2.7. Patient states voiding several times, documented urine output 200cc/24 hours. Comfortable with following renal fct outpatient if discharged. Qualifiers: Acute renal failure type: unspecified Chronic kidney disease stage: stage 4 (severe) Qualified Code(s): N17.9 - Acute kidney failure, unspecified; N18.4 - Chronic kidney disease, stage 4 (severe) Subjective Interval history: Sitting up in chair. States breathing easier, wants to go home. Documented urine output 200 cc past 24 hours. Patient states has been voiding several times. Objective - Vital Signs Vital signs: Vital Signs Temp Pulse Resp BP Pulse Ox 11/12/16 07:54 18 96 11/12/16 06:49 98.2 F 79 18 141/50 95 11/12/16 04:00 98.1 F 81 16 130/41 96 11/11/16 22:25 20 11/11/16 20:22 82 18 133/59 100 11/11/16 20:00 98.1 F 11/11/16 16:45 98.3 F 75 148/55 11/11/16 11:11 98.3 F 73 16 139/61 94 Intake and Output 11/11/16 11/12/16 11/12/16 23:59 07:59 15:59 Intake Total 0 / 0 Output Total 150 / 150 Balance -150 / -150 Intake: Oral 0 / 0 Output: Urine 150 / 150 Other: Weight 106.4 kg Blood Glucose* 195 149 Patient Weight 11/12/16 23:59 Weight 106.4 kg - General Appearance General appearance: Present: well-developed, well-nourished, appears started age , obese EENT: Present: mucous membranes moist Respiratory: Present: rales Additional Comments: fine bibasilar crackles Cardiology: Present: no edema, regular rate, regular rhythm Gastrointestinal: Present: normoactive bowel sounds, no tenderness, obese Integumentary: Present: warm and dry Neurologic: Present: alert and oriented x3 Psychiatric: Present: mood/affect appropriate, cooperative - Lab 11/12/16 04:57 11/12/16 04:57 Most recent lab results Calcium 9.2 mg/dL (8.6-10.8) 11/12/16 04:57 Phosphorus 4.0 mg/dL (2.3-4.7) 11/12/16 04:57 Magnesium 1.8 mg/dL (1.6-2.6) 11/12/16 04:57 Consult Discharge Plan - Plan Referrals: Polina Crawford MD [Primary Care Provider] -
[2016-11-12] MEDS: Insulin DETEMIR 100 UNIT/ML X5UNITS SQ SCH ×2 (08:46→20:52)
--- NOTE | 2016-11-12 11:36 | Internal Med Progress Note ---
Date of Encounter: 11/12/16 Time of Encounter: 11:34 - Assessment and plan (1) Acute respiratory failure with hypoxia Current Visit: No Status: Resolved Assessment and plan: Secondary to pneumonia will continue PO abx at this time patient clinically improving however noted to remain hypoxic without O2 supplementation Pt might need to be discharged to home with home oxygen therapy will continue to closely monitor f/u blood cultures will obtain PT evaluation and patient encouraged to increase activity as tolerated (2) HCAP (healthcare-associated pneumonia) Current Visit: Yes Status: Acute Assessment and plan: as listed above (3) Pdfuq-[id number] kidney injury Current Visit: Yes Status: Acute Assessment and plan: likely multifactorial (infectious vs. drug induced) will continue to hold Lasix at this time nephrology evaluation appreciated Qualifiers: Acute renal failure type: unspecified Chronic kidney disease stage: stage 4 (severe) Qualified Code(s): N17.9 - Acute kidney failure, unspecified; N18.4 - Chronic kidney disease, stage 4 (severe) (4) Congestive heart failure Current Visit: No Status: Chronic Assessment and plan: not in acute exacerbation will continue to closely monitor Qualifiers: Congestive heart failure type: diastolic Congestive heart failure chronicity: chronic Qualified Code(s): I50.32 - Chronic diastolic (congestive ) heart failure (5) Diabetes mellitus Current Visit: Yes Status: Chronic Assessment and plan: BG better controlled continue SS insulin algorithm will continue to monitor FS and BG will adjust insulin therapy as per the BG readings and insulin requirements Qualifiers: Diabetes mellitus type: type 2 Diabetes mellitus complication status: with kidney complications Diabetes mellitus complication detail: with chronic kidney disease Diabetes mellitus nursing home insulin use: with liquor blender use Chronic kidney disease stage: stage 4 (severe) Qualified Code(s): E11.22 - Type 2 diabetes mellitus with diabetic chronic kidney disease; N18.4 - Chronic kidney disease, stage 4 (severe); 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 (6) DVT prophylaxis Current Visit: Yes Status: Acute Assessment and plan: Heparin SQ (7) Morbid obesity with BMI of 40.0-44.9, adult Current Visit: Yes Status: Chronic (8) Normocytic anemia Current Visit: Yes Status: Chronic Assessment and plan: H&H low but acceptable no acute bleeding reported at this time pt noted to be on iron supplementation, will continue will continue to monitor H&H (9) Urinary tract infection Current Visit: Yes Status: Acute Assessment and plan: continue oral abx urine cultures positive for Klebsiella will continue current treatment Qualifiers: Urinary tract infection type: site unspecified Hematuria presence: without hematuria Qualified Code(s): N39.0 - Urinary tract infection, site not specified (10) Hyperkalemia Current Visit: Yes Status: Acute Assessment and plan: No ekg changes noted will give one time dose of Kayxelate will closely monitor electrolytes (11) Conjunctival injection Current Visit: Yes Status: Acute Assessment and plan: will d/c gentamicin drops and start lubricating drops pt denies any pain or vision changes Qualifiers: Laterality: right Qualified Code(s): H11.431 - Conjunctival hyperemia, right eye - Subjective Interval history: Pt seen and examined with family present at bedside. Resting in chair and reports of feeling better compared to the previous day however still not at her baseline. Noted to have mild conjunctival injection of right eye which wasn't there yesterday. Noted to be on gentamicin drops, will discontinue . Denies any sob or chest pain at this time. No overnight events reported. - Constitutional Vitals: Temp Pulse Resp BP Pulse Ox 97.7 F 69 18 155/47 98 11/12/16 11:06 11/12/16 11:06 11/12/16 11:06 11/12/16 11:06 11/12/16 11:06 General appearance: Present: A&O X 3, morbidly obese, no acute distress, answers questions appropriately - Head Head exam: Present: atraumatic, normocephalic - Eye Eye exam: Present: conjunctival injection (right), sclera anicteric - Respiratory Respiratory exam: Absent: respiratory distress, wheezes - Cardiovascular Cardiovascular exam: Present: RRR, +S1, +S2. Absent: diastolic murmur, gallop, rubs, systolic murmur - GI/Abdominal GI/Abdominal exam: Present: normal bowel sounds, soft, no peritoneal signs. Absent: distended, tenderness - Extremities Exam Extremities exam: Present: pedal edema, warm, radial pulses palpable and symetrical. Absent: calf tenderness - Neurological Exam Neurological exam: Present: alert, oriented X3 - Psychiatric Psychiatric exam: Present: normal affect, normal mood Internal Medicine: Result - Labs CBC & Chem 7: 11/12/16 04:57 11/12/16 04:57 Labs: Short CBC 11/12/16 Range/Units 04:57 WBC 10.2 (4.3-11.1) K/mcL Hgb 7.8 L (11.5-15.4) g/dL Hct 26.2 L (35.3-44.9) % Plt Count 238 (140-400) K/mcL Neutrophils # 7.7 (1.6-8.9) K/mcL BMP 11/12/16 04:57 Sodium 139 Potassium 5.4 H Chloride 111 H Carbon Dioxide 21 BUN 80 H Creatinine 3.50 H Glucose 172 H Calcium 9.2 Consult Discharge Plan - Plan Referrals: Polina Crawford MD [Primary Care Provider] -
[2016-11-12] MEDS: Artificial Tears SOLN 15 ML BOTTLE RIGHT EYE SCH ×3 (15:51→21:10)
[2016-11-13] MEDS: *HR* Heparin 5,000 UNIT/ML VIAL SQ SCH (06:07)
[2016-11-13 06:59] LABS: Basophils % 0.2 %; Eosinophils # 0.4 K/mcL (0.0-0.6); Hematocrit 28.3 % (35.3-44.9); Hemoglobin 8.3 g/dL (11.5-15.4); Immature Granulocytes % 4.8 % (0-4); Lymphocytes # 1.1 K/mcL (0.6-4.6); Lymphocytes % 9.8 %; Mean Corpuscular HGB Conc 29.3 g/dL (31.6-35.5); Mean Corpuscular Hemoglobin 27.5 pg (28.0-33.3); Mean Corpuscular Volume 93.7 fL (83.0-100.0); Mean Platelet Volume 10.3 fL (9.4-12.4); Monocytes # 0.6 K/mcL (0.0-1.3); Monocytes % 5.6 %; Neutrophils # 8.2 K/mcL (1.6-8.9); Nucleated Red Blood Cells 0.2 /100 WBC (0); Platelet Count 275 K/mcL (140-400); Red Blood Count 3.02 M/mcL (3.82-4.97); Red Cell Distribution Width 15.9 % (11.5-14.5); Segmented Neutrophils % 75.6 %
[2016-11-13 07:02] VITALS: BP 145/45
[2016-11-13 07:06] LABS: Calcium 9.2 mg/dL (8.6-10.8); Magnesium 1.7 mg/dL (1.6-2.6); Phosphorous 4.3 mg/dL (2.3-4.7); Potassium 4.8 mEq/L (3.5-4.5)
[2016-11-13] MEDS: Insulin LISPRO 300 UNITS/3 ML VIAL SQ SCH ×2 (07:59→11:30)
[2016-11-13] MEDS: Budesonide/Formoterol 160/4.5 MDI IH SCH (08:09)
--- NOTE | 2016-11-13 09:08 | Nephrology Progress Note ---
Date of Encounter: 11/13/16 Time of Encounter: 08:35 - Assessment and Plan (1) Acute on chronic kidney failure Current Visit: Yes Status: Acute ELIUD in setting of recent hospital admission for acute on chronic diastolic congestive heart failure, pneumonia, urinary tract infection, and decreased oral intake as an outpatient. Renal fct slowly improving creat 3.27, baseline 2.5-2.7. Patient states voided several times with diarrheal stools (kaexylate), documented urine output 250cc/24 hours. Comfortable with following renal fct outpatient if discharged. Qualifiers: Acute renal failure type: unspecified Chronic kidney disease stage: stage 4 (severe) Qualified Code(s): N17.9 - Acute kidney failure, unspecified; N18.4 - Chronic kidney disease, stage 4 (severe) Subjective Interval history: Sitting up in chair. eating breakfast. States breathing easier, wants to go home. Documented urine output 250 cc past 24 hours. Patient states had been voiding with diarrheal stools (Kaexylate) several times. Objective - Vital Signs Vital signs: Vital Signs Temp Pulse Resp BP Pulse Ox 11/13/16 08:15 18 95 11/13/16 06:58 98.3 F 80 17 145/45 95 11/13/16 04:50 98.1 F 82 18 135/50 93 11/12/16 20:22 98.7 F 81 16 151/55 93 11/12/16 20:07 16 93 11/12/16 16:08 98.5 F 70 16 145/60 98 11/12/16 11:06 97.7 F 69 18 155/47 98 Intake and Output 11/12/16 11/13/16 11/13/16 23:59 07:59 15:59 Intake Total 240 / 240 0 / 0 Output Total 100 / 100 200 / 200 Balance 140 / 140 -200 / -200 Intake: Oral 240 / 240 0 / 0 Output: Urine 100 / 100 200 / 200 Other: Meal Dinner Percent of Meal Consumed 50% # Voids 0 Weight 107 kg Blood Glucose* 246 101 Patient Weight 11/13/16 23:59 Weight 107 kg - General Appearance General appearance: Present: well-developed, well-nourished, appears started age , obese EENT: Present: mucous membranes moist Neck: Present: no JVD Respiratory: Present: clear Cardiology: Present: edema, regular rate, regular rhythm Gastrointestinal: Present: normoactive bowel sounds, no tenderness Integumentary: Present: warm and dry Neurologic: Present: alert and oriented x3 Psychiatric: Present: mood/affect appropriate, cooperative - Lab 11/13/16 06:07 11/13/16 06:07 Most recent lab results Calcium 9.2 mg/dL (8.6-10.8) 11/13/16 06:07 Phosphorus 4.3 mg/dL (2.3-4.7) 11/13/16 06:07 Magnesium 1.7 mg/dL (1.6-2.6) 11/13/16 06:07 Consult Discharge Plan - Plan Referrals: Delon Arciniega MD [Partnered Physician] - 12/12/16 11:30 am Lilia Valencia CNP [Advanced Practice Nurse] - 11/24/16 2:00 pm
[2016-11-13] MEDS: hydrALAZINE 25 MG TABLET PO SCH (09:34)
[2016-11-13] MEDS: Diltiazem CD (24hr) 240 MG CAPSULE PO SCH (09:34)
[2016-11-13] MEDS: levoFLOXacin 500 MG TABLET PO SCH (09:34)
[2016-11-13] MEDS: Aspirin Enteric Coated 81 MG Tablet PO SCH (09:34)
[2016-11-13] MEDS: Cholecalciferol (D-3) 1,000 UNIT TABLET PO SCH (09:34)
[2016-11-13] MEDS: Insulin DETEMIR 100 UNIT/ML X5UNITS SQ SCH (09:36)
[2016-11-13] MEDS: Artificial Tears SOLN 15 ML BOTTLE RIGHT EYE SCH (09:44)
--- NOTE | 2016-11-13 09:49 | Discharge Summary ---
Date of Encounter: 11/13/16 Time of Encounter: 09:44 - Discharge Diagnosis (1) Acute respiratory failure with hypoxia Priority: Primary Status: Resolved (2) HCAP (healthcare-associated pneumonia) Priority: Primary Status: Acute (3) [id number] kidney injury Priority: Secondary Status: Acute Qualifiers: Acute renal failure type: unspecified Chronic kidney disease stage: stage 4 (severe) Qualified Code(s): N17.9 - Acute kidney failure, unspecified; N18.4 - Chronic kidney disease, stage 4 (severe) (4) Congestive heart failure Priority: Secondary Status: Chronic Qualifiers: Congestive heart failure type: diastolic Congestive heart failure chronicity: chronic Qualified Code(s): I50.32 - Chronic diastolic (congestive ) heart failure (5) Diabetes mellitus Priority: Secondary Status: Chronic Qualifiers: Diabetes mellitus type: type 2 Diabetes mellitus complication status: with kidney complications Diabetes mellitus complication detail: with chronic kidney disease Diabetes mellitus medical terminologist insulin use: with skilled nursing use Chronic kidney disease stage: stage 4 (severe) Qualified Code(s): E11.22 - Type 2 diabetes mellitus with diabetic chronic kidney disease; N18.4 - Chronic kidney disease, stage 4 (severe); Z79.4 - intermediate (current) use of insulin (6) DVT prophylaxis Priority: Secondary Status: Acute (7) Morbid obesity with BMI of 40.0-44.9, adult Priority: Secondary Status: Chronic (8) Normocytic anemia Priority: Secondary Status: Chronic (9) Urinary tract infection Priority: Secondary Status: Acute Qualifiers: Urinary tract infection type: site unspecified Hematuria presence: without hematuria Qualified Code(s): N39.0 - Urinary tract infection, site not specified (10) Hyperkalemia Priority: Secondary Status: Acute (11) Conjunctival injection Priority: Secondary Status: Chronic Qualifiers: Laterality: right Qualified Code(s): H11.431 - Conjunctival hyperemia, right eye - Discharge Medications Prescriptions: levoFLOXacin [Levaquin] 500 mg PO Q48H #3 tab Home Medications: Albuterol Sulfate [Albuterol Inhaler] 2 puff IH Q4HR 12/18/14 [History] Aspirin Enteric Coated [Aspirin EC] 81 mg PO QAM 12/18/14 [History] Atorvastatin [Lipitor] 40 mg PO QPM 12/18/14 [History] Budesonide/Formoterol 160/4.5 [Symbicort] 2 puff IH BID 12/18/14 [History] Cholecalciferol (Vitamin D3) [Vitamin D3] 2,000 unit PO QAM 12/18/14 [History] Diltiazem CD (24hr) [Cardizem CD] 240 mg PO QAM 12/18/14 [History] Insulin Glargine,Hum.rec.anlog [Lantus Solostar] 26 unit SQ BID 12/18/14 [ History] Montelukast [Singulair] 10 mg PO QPM 12/18/14 [History] Ferrous Sulfate [Iron] 325 mg PO QAM 04/25/16 [History] Furosemide [Lasix] 20 mg PO DAILY 04/25/16 [History] Vit A/Vit C/Vit E/Zinc/Copper [Preservision Areds Tablet] 1 tab PO BID 04/25/16 [History] Labetalol [Trandate] 100 mg PO TID #90 tablet 04/29/16 [Rx] hydrALAZINE [HydrALAZINE] 25 mg PO BID #60 tablet 04/29/16 [Rx] Darbepoetin [Aranesp] 100 mcg IJ Q2W 11/05/16 [History] Insulin LISPRO [Humalog Kwikpen U-100] 26 unit SQ BIDWM 11/05/16 [History] levoFLOXacin [Levaquin] 500 mg PO Q48H #3 tab 11/13/16 [Rx] Allergies/Adverse Reactions: Allergies acetaminophen [From Percocet] Adverse Reaction (Verified 11/09/16 23:53) Nausea hydrocodone Adverse Reaction (Verified 11/09/16 23:53) Nausea Oxycodone [From Percocet] Adverse Reaction (Verified 11/09/16 23:53) Nausea propoxyphene [From Darvon] Adverse Reaction (Verified 11/09/16 23:53) Nausea Sulfa (Sulfonamide Antibiotics) Adverse Reaction (Verified 11/09/16 23:53) Nausea Date of admission: 11/10/16 04:06 Primary care physician: Polina Crawford, Consults: 11/10/16 11:08 Consult to Invasive Line Access Team [CONS] Routine Reason for Consult: Picc Line Insertion Line Type: EPIV PICC line indications: Limited vascular access Time Notified: 11:09 Call Completed: Yes 11/11/16 08:37 Consult to Nephrology [CONS] Routine Consulting Provider: [facility] DIANNA Reason for Consult: acute on chronic kidney injury Call Completed: Yes 11/12/16 11:34 Consult to Physical Therapy [CONS] Routine Comment: Evaluate, develop and implement POC Reason for Consult: Patient does not ambulate well and will be discharging Discharging clinician: Nina Guillermo Anticipated date of discharge: 11/13/16 - Patient Status Disposition: Home Health Service Condition: Good Functional capacity at discharge: uses cane/walker Overall status at discharge: patient is back to baseline - Discharge Instructions Follow Up With: Lul Flores DO [Non-Partnered Physician] - (office will call patient with appointment ) Delon Arciniega MD [Partnered Physician] - 11/20/16 12:45 pm Lilia Valencia CNP [Advanced Practice Nurse] - 11/24/16 2:00 pm Additional Instructions: Please follow up with your primary care physician within one week after your discharge from the hospital. Please follow up with your medical physicist and dieing out machine operator within 5days to one week after your discharge from the hospital. Please continue to take your oral antibiotic as prescribed. Last day of antibiotic: 11/19/16 Please inform your medical physicist about your recent need for O2 requirement and consider outpatient pulmonary function testing. Please obtain the prescribed lab work prior to your follow up with your dieing out machine operator. Please continue to hold lasix until your follow up with your dieing out machine operator. Resume all your home medications as prescribed by your primary care physician. - Diet and Activity Activity: as per physical therapy, wear oxygen at all times Diet: diabetic diet, low salt diet Hospital course: Ms. Bazan is a 70 year old female with PMH of CHF, DM, HTN, HLD, morbid obesity , CKD who was admitted for management of acute respiratory distress secondary to PNA, UTI and ELIUD on CKD. Patient was started on abx and her home dose of lasix was placed on hold. Patient was followed by nephrology throughout the course of her admission. patient was also to require O2 supplementation and qualified for home O2 therapy. She was evaluated by physical therapy and ECF was recommended, however patient declined rehab and agreed to home health PT. AT this time patient is hemodynamically stable and will be discharged to home with home oxygen and oral abx. She is to follow up with PCP, pulmonology, and nephrology after discharge. pt demonstrates understanding of her diagnosis and agrees with the discharge care and plan. - Time Spent with Patient Total time spent providing and/or coordinating discharge services: Greater than 30 minutes - Constitutional Vitals: Temp Pulse Resp BP Pulse Ox 98.3 F 80 18 145/45 95 11/13/16 06:58 11/13/16 06:58 11/13/16 08:15 11/13/16 06:58 11/13/16 08:15 General appearance: Present: A&O X 3, morbidly obese, no acute distress, answers questions appropriately - Head Head exam: Present: atraumatic, normocephalic - Eye Eye exam: Present: conjunctival injection (right improved from previous day ) - Respiratory Respiratory exam: Absent: respiratory distress, wheezes - Cardiovascular Cardiovascular exam: Present: RRR, +S1, +S2. Absent: diastolic murmur, gallop, rubs, systolic murmur - GI/Abdominal GI/Abdominal exam: Present: normal bowel sounds, soft, no peritoneal signs. Absent: distended, tenderness - Extremities Exam Extremities exam: Present: pedal edema, warm, radial pulses palpable and symetrical. Absent: calf tenderness - Neurological Exam Neurological exam: Present: alert, oriented X3 - Psychiatric Psychiatric exam: Present: normal affect, normal mood
--- NOTE | 2016-11-13 10:00 | Physician Discharge Referral ---
Home Health/Hosp Referral Info Transfer to: Home Health Provider in Charge Post Discharge: PCP - Diagnosis (1) Acute respiratory failure with hypoxia Priority: Primary Status: Resolved (2) HCAP (healthcare-associated pneumonia) Priority: Primary Status: Acute (3) Nnmic-ow-hlqrhur kidney injury Priority: Secondary Status: Acute (4) Congestive heart failure Priority: Secondary Status: Chronic (5) Diabetes mellitus Priority: Secondary Status: Chronic (6) DVT prophylaxis Priority: Secondary Status: Acute (7) Morbid obesity with BMI of 40.0-44.9, adult Priority: Secondary Status: Chronic (8) Normocytic anemia Priority: Secondary Status: Chronic (9) Urinary tract infection Priority: Secondary Status: Acute (10) Hyperkalemia Priority: Secondary Status: Acute (11) Conjunctival injection Priority: Secondary Status: Chronic - Respiratory Orders Oxygen / L per min (2L/min to maintain O2>92%) Smoking Cessation: Smoking cessation has been advised. For more information, call the [employer] Tobacco Quit Line at 4-680-TFED-NOW. - Services Needed Following services are medically necessary services: Nursing, Home Health Aide, Physical Therapy, Occupational Therapy - Transfer Medications Prescriptions: levoFLOXacin [Levaquin] 500 mg PO Q48H #3 tab Home Medications: Albuterol Sulfate [Albuterol Inhaler] 2 puff IH Q4HR 12/18/14 [History] Aspirin Enteric Coated [Aspirin EC] 81 mg PO QAM 12/18/14 [History] Atorvastatin [Lipitor] 40 mg PO QPM 12/18/14 [History] Budesonide/Formoterol 160/4.5 [Symbicort] 2 puff IH BID 12/18/14 [History] Cholecalciferol (Vitamin D3) [Vitamin D3] 2,000 unit PO QAM 12/18/14 [History] Diltiazem CD (24hr) [Cardizem CD] 240 mg PO QAM 12/18/14 [History] Insulin Glargine,Hum.rec.anlog [Lantus Solostar] 26 unit SQ BID 12/18/14 [ History] Montelukast [Singulair] 10 mg PO QPM 12/18/14 [History] Ferrous Sulfate [Iron] 325 mg PO QAM 04/25/16 [History] Furosemide [Lasix] 20 mg PO DAILY 04/25/16 [History] Vit A/Vit C/Vit E/Zinc/Copper [Preservision Areds Tablet] 1 tab PO BID 04/25/16 [History] Labetalol [Trandate] 100 mg PO TID #90 tablet 04/29/16 [Rx] hydrALAZINE [HydrALAZINE] 25 mg PO BID #60 tablet 04/29/16 [Rx] Darbepoetin [Aranesp] 100 mcg IJ Q2W 11/05/16 [History] Insulin LISPRO [Humalog Kwikpen U-100] 26 unit SQ BIDWM 11/05/16 [History] levoFLOXacin [Levaquin] 500 mg PO Q48H #3 tab 11/13/16 [Rx] Allergies/Adverse Reactions: Allergies acetaminophen [From Percocet] Adverse Reaction (Verified 11/09/16 23:53) Nausea hydrocodone Adverse Reaction (Verified 11/09/16 23:53) Nausea Oxycodone [From Percocet] Adverse Reaction (Verified 11/09/16 23:53) Nausea propoxyphene [From Darvon] Adverse Reaction (Verified 11/09/16 23:53) Nausea Sulfa (Sulfonamide Antibiotics) Adverse Reaction (Verified 11/09/16 23:53) Nausea Certification: Further, I certify that my clinical findings support that this patient is homebound (i.e. absences from home require considerable and taxing effort and are for medical reasons or druze services or infrequently or short duration when for other reasons) because: Homebound Reason: Patient requires assistance of a person or device to safely leave home Attestation: My signature below is to certify that this patient is under my care and that I, or nurse practitioner, or a physician's district administrative assistant working with me, has a face-to -face encounter with this patient.
== END 2016-11-13 15:47 | disposition home health service (06) | DRG 193 ==
LOC: EMEROO 23:47 → 2NENU 23:47 → SUATTDRO 11-10 04:06 → 2NENU 11-10 07:02
PROVIDERS: ADMIT Internal Medicine; ATTEND Internal Medicine

== ENCOUNTER 2017-02-12 13:22 | Inpatient (IN) ==
[2017-02-12 14:36] LABS: Basophils % 0.4 %; Eosinophils # 0.3 K/mcL (0.0-0.6); Eosinophils % 3.7 %; Hemoglobin 8.8 g/dL (11.5-15.4); Immature Granulocytes % 1.1 % (0-4); Lymphocytes # 0.8 K/mcL (0.6-4.6); Lymphocytes % 10.7 %; Mean Corpuscular HGB Conc 29.3 g/dL (31.6-35.5); Mean Corpuscular Hemoglobin 27.2 pg (28.0-33.3); Mean Corpuscular Volume 92.6 fL (83.0-100.0); Mean Platelet Volume 10.4 fL (9.4-12.4); Monocytes # 0.4 K/mcL (0.0-1.3); Monocytes % 5.7 %; Neutrophils # 5.9 K/mcL (1.6-8.9); Platelet Count 278 K/mcL (140-400); Red Blood Count 3.24 M/mcL (3.82-4.97); Red Cell Distribution Width 16.8 % (11.5-14.5); Segmented Neutrophils % 78.4 %
[2017-02-12 14:50] LABS: Prothrombin Time 10.9 Seconds (9.4-12.1)
[2017-02-12 14:53] LABS: Activated Partial Thrombo Time 37.6 Seconds (26.0-36.0)
[2017-02-12 15:32] LABS: Albumin 2.7 g/dL (3.5-5.0); Albumin/Globulin Ratio 0.6 (1.1-2.2); Bilirubin,Direct 0.2 mg/dL (0.0-0.5); Bilirubin,Total 0.2 mg/dL (0.2-1.2); Calcium 9.5 mg/dL (8.6-10.8); Globulin 4.5 g/dL (2.4-3.5); Potassium 5.4 mEq/L (3.5-4.5); Total Protein 7.2 g/dL (6.0-8.3)
--- NOTE | 2017-02-12 16:01 | Emergency Department Note ---
Disposition Clinical Impression: SOB (shortness of breath) Volume overload Qualifiers: Hypervolemia type: unspecified Qualified Code(s): E87.70 - Fluid overload, unspecified Renal failure Qualifiers: Renal failure chronicity: acute on chronic Acute renal failure type: unspecified Chronic kidney disease stage: stage 5, not on chronic dialysis Qualified Code(s): N17.9 - Acute kidney failure, unspecified Disposition: Admitted As Inpatient Condition: Good General Adult HPI - General Chief complaint: ED Shortness of Breath/Dyspnea Stated complaint: Pneumonia,CHF Time Seen by Provider: 02/12/17 15:03 Source: family Limitations: physical limitation Nursing Notes Reviewed: Yes Vital Signs Reviewed: Yes - History of Present Illness HPI Narrative: 71-year-old female with CHF, Chronic Kidney Disease, recent diagnosis of pneumonia, and recent need for oxygen via nasal cane dialysis emergency department with worsening shortness of breath. Patient states that she does some more swelling in her legs. Patient states that she feels like she is coming to the hospital. Pain Scale: 5 - Related Data Home Medications Medication Instructions Recorded Confirmed Albuterol Sulfate [Albuterol 2 puff IH Q4HR PRN 12/18/14 02/12/17 Inhaler] Aspirin Enteric Coated [Aspirin EC] 81 mg PO QAM 12/18/14 02/12/17 Atorvastatin [Lipitor] 40 mg PO QPM 12/18/14 02/12/17 Budesonide/Formoterol 160/4.5 2 puff IH BID 12/18/14 02/12/17 [Symbicort] Cholecalciferol (Vitamin D3) 2,000 unit PO QAM 12/18/14 02/12/17 [Vitamin D3] Diltiazem CD (24hr) [Cardizem CD] 240 mg PO QAM 12/18/14 02/12/17 Insulin Glargine,Hum.rec.anlog 26 unit SQ BID 12/18/14 02/12/17 [Lantus Solostar] Montelukast [Singulair] 10 mg PO QPM 12/18/14 02/12/17 Ferrous Sulfate [Iron] 325 mg PO QAM 04/25/16 02/12/17 Furosemide [Lasix] 40 mg PO QAM 04/25/16 02/12/17 Vit A/Vit C/Vit E/Zinc/Copper 1 tab PO BID 04/25/16 02/12/17 [Preservision Areds Tablet] Darbepoetin [Aranesp] 100 mcg IJ Q2W 11/05/16 02/12/17 Insulin LISPRO [Humalog Kwikpen 0 unit SQ BIDWM 11/05/16 02/12/17 U-100] Loratadine [Allergy Relief] 10 mg PO DAILY 12/18/16 02/12/17 Previous Rx's Medication Instructions Recorded Labetalol [Trandate] 100 mg PO TID #90 tablet 04/29/16 hydrALAZINE [HydrALAZINE] 25 mg PO BID #60 tablet 04/29/16 Cephalexin [Keflex] 500 mg PO BID #14 capsule 02/09/17 Tramadol HCl [Ultram] 50 mg PO QID PRN #20 tab 02/16/17 Allergies Allergy/AdvReac Type Severity Reaction Status Date / Time hydrocodone AdvReac Nausea Verified 11/09/16 23:53 Oxycodone [From Percocet] AdvReac Nausea Verified 11/09/16 23:53 propoxyphene [From Darvon] AdvReac Nausea Verified 11/09/16 23:53 Sulfa (Sulfonamide AdvReac Nausea Verified 11/09/16 23:53 Antibiotics) All systems ED: reviewed and negative except as stated. Review of Systems: As Per HPI Constitutional: Denies: fever Cardiovascular: Reports: chest pain, dyspnea on exertion, edema Respiratory: Reports: cough, dyspnea. Denies: wheezes, sputum production Gastrointestinal: Denies: abdominal pain, nausea, vomiting Genitourinary: Denies: urgency Musculoskeletal: Denies: back pain Integumentary: Denies: rash Neurological: Denies: headache Past Medical History - Past Medical History Medical history: Reports: arthritis, asthma, CHF, diabetes, hyperlipidemia, hypertension, kidney stones, renal disease Surgical history: Reports: , knee replacement Psychiatric history: Reports: no psych history - Social History Smoking Status: Never smoker Smokeless Tobacco Status: No Alcohol use: Reports: rarely, occasionally Drug use: Reports: none Physical Exam General: Edematous female on 2 L nasal calor, not appearing to be in any acute respiratory distress Head: autraumatic, EOMI, no conjuncitval pallor, no scleral icterus, Mouth: oral mucous membranes moist Neck: neck soft, trachea midline Chest:: Equal chest wall rise Lungs: Normal lungs sounds bilaterally, no wheezes, no respiratory distress Heart: normal heart sounds, normal rate and rhythm, Abdomen: soft, non-tender, no rigidity, no guarding, no rebdound tenderness Lower Extremities: Bilateral 2+ pitting edema, calves non-tender Integumentary: Skin warm, dry, and intact Neuro: Alert Psych: normal affect, normal mood - General Limitations: physical limitation General appearance: alert, in no apparent distress Course Vital Signs Temperature 97.6 F 02/12/17 13:27 Pulse Rate 69 02/12/17 13:27 Respiratory Rate 20 02/12/17 13:27 Blood Pressure 139/52 02/12/17 13:27 O2 Sat by Pulse Oximetry 91 02/12/17 13:27 Temperature 97.8 F 02/16/17 14:00 Pulse Rate 86 02/16/17 15:06 Respiratory Rate 18 02/16/17 14:00 Blood Pressure 149/55 02/16/17 15:13 O2 Sat by Pulse Oximetry 94 02/16/17 07:58 Oxygen Delivery Oxygen Delivery Room Air Medical Decision Making - MDM Narrative Medical decision making narrative: 71-year-old female with Chronic Kidney Disease, CHF, presents to the emergency department with worsening shortness of breath. She was recently diagnosed with pneumonia and sent home on Levaquin and azithromycin. Patient states that her shortness of breath has only been getting worse over the last couple days. Patient states that she was recently as prior gaming host about the possibility of dialysis, she rejected the idea that time. Patient's been limited at home to 2 L of oxygen via nasal cannula over the last week and her shortness of breath is increased steadily over the last year. Patient's creatinine here in the emergency department was 4.02. Her GFR was 13. Patient' s chest x-ray reveals a persistently large cardiac silhouette with prominence of the pulmonary vasculature. I believe that this is all due to her volume overload secondary to her renal failure. I consulted her gaming host Dr. Jama and expressed my concern with her worsening shortness of breath and her O2 saturation via at 91% on 2 L of oxygen via nasal cannula. He stated to admit her to the hospital, give her Lasix, and have her admitted to medicine. Abdomen is patient to the hospitalist and he agreed with plan. Also discussed the plan with the patient and her and they agreed with admission. Chest X-Ray 02/12/17 14:03 IMPRESSION: 1. Persistently enlarged cardiac silhouette with prominence of the pulmonary vasculature. 2. Question of trace pleural effusions with bibasilar atelectasis. D/ / Elmo Estrada MD / Elmo Estrada MD Interpreting Provider: Elmo Estrada MD Vital Signs Temperature 97.6 F 02/12/17 13:27 Pulse Rate 69 02/12/17 13:27 Respiratory Rate 20 02/12/17 13:27 Blood Pressure 139/52 02/12/17 13:27 O2 Sat by Pulse Oximetry 91 02/12/17 13:27 Temperature 97.7 F 02/13/17 03:34 Pulse Rate 80 02/13/17 03:34 Respiratory Rate 16 02/13/17 03:34 Blood Pressure 127/72 02/13/17 03:34 O2 Sat by Pulse Oximetry 94 02/13/17 03:34 Oxygen Delivery Oxygen Delivery Room Air - Medical Records Medical records reviewed: Yes I reviewed the patient's medical records. - Lab Data Lab results reviewed: Yes I reviewed the patient's lab results. Result diagrams: 02/16/17 02:41 02/16/17 02:41 Lab Results 02/12/17 02/12/17 02/12/17 Range/Units 14:25 14:25 14:25 WBC 7.5 (4.3-11.1) K/mcL RBC 3.24 L (3.82-4.97) M/mcL Hgb 8.8 L (11.5-15.4) g/dL Hct 30.0 L (35.3-44.9) % MCV 92.6 (83.0-100.0) fL MCH 27.2 L (28.0-33.3) pg MCHC 29.3 L (31.6-35.5) g/dL RDW 16.8 H (11.5-14.5) % Plt Count 278 (140-400) K/mcL MPV 10.4 (9.4-12.4) fL Immature Gran % 1.1 (0-4) % Seg Neutrophils % 78.4 % Lymphocytes % 10.7 % Monocytes % 5.7 % Eosinophils % 3.7 % Basophils % 0.4 % Neutrophils # 5.9 (1.6-8.9) K/mcL Lymphocytes # 0.8 (0.6-4.6) K/mcL Monocytes # 0.4 (0.0-1.3) K/mcL Eosinophils # 0.3 (0.0-0.6) K/mcL Basophils # 0.0 (0.0-0.2) K/mcL PT 10.9 (9.4-12.1) Seconds INR 1.0 APTT 37.6 H (26.0-36.0) Seconds Sodium 139 (136-145) mEq/L Potassium 5.4 H (3.5-4.5) mEq/L Chloride 110 H (98-109) mEq/L Carbon Dioxide 17 L (19-29) mEq/L BUN 116 H (7-20) mg/dL Creatinine 4.02 H (0.57-1.11) mg/dL Est GFR ( Amer) 13 L (> 60) Est GFR (Non-Af Amer) 11 L (> 60) BUN/Creatinine Ratio 29 H (6-26) Glucose 269 H (70-99) mg/dL POC Glucose (58-89) Calculated Osmolality 334 H (280-300) Calcium 9.5 (8.6-10.8) mg/dL Total Bilirubin 0.2 (0.2-1.2) mg/dL Direct Bilirubin 0.2 (0.0-0.5) mg/dL Indirect Bilirubin 0.0 (0.0-1.2) mg/dL AST 19 (5-34) Units/L ALT 25 (0-55) Units/L Alkaline Phosphatase 246 H (38-126) Units/L Troponin I (0-0.03) ng/mL B-Natriuretic Peptide (0-100) pg/mL Serum Total Protein 7.2 (6.0-8.3) g/dL Albumin 2.7 L (3.5-5.0) g/dL Globulin 4.5 H (2.4-3.5) g/dL Albumin/Globulin Ratio 0.6 L (1.1-2.2) 02/12/17 02/12/17 02/12/17 Range/Units 14:25 14:25 17:09 WBC (4.3-11.1) K/mcL RBC (3.82-4.97) M/mcL Hgb (11.5-15.4) g/dL Hct (35.3-44.9) % MCV (83.0-100.0) fL MCH (28.0-33.3) pg MCHC (31.6-35.5) g/dL RDW (11.5-14.5) % Plt Count (140-400) K/mcL MPV (9.4-12.4) fL Immature Gran % (0-4) % Seg Neutrophils % % Lymphocytes % % Monocytes % % Eosinophils % % Basophils % % Neutrophils # (1.6-8.9) K/mcL Lymphocytes # (0.6-4.6) K/mcL Monocytes # (0.0-1.3) K/mcL Eosinophils # (0.0-0.6) K/mcL Basophils # (0.0-0.2) K/mcL PT (9.4-12.1) Seconds INR APTT (26.0-36.0) Seconds Sodium (136-145) mEq/L Potassium (3.5-4.5) mEq/L Chloride (98-109) mEq/L Carbon Dioxide (19-29) mEq/L BUN (7-20) mg/dL Creatinine (0.57-1.11) mg/dL Est GFR ( Amer) (> 60) Est GFR (Non-Af Amer) (> 60) BUN/Creatinine Ratio (6-26) Glucose (70-99) mg/dL POC Glucose 238 H (58-89) Calculated Osmolality (280-300) Calcium (8.6-10.8) mg/dL Total Bilirubin (0.2-1.2) mg/dL Direct Bilirubin (0.0-0.5) mg/dL Indirect Bilirubin (0.0-1.2) mg/dL AST (5-34) Units/L ALT (0-55) Units/L Alkaline Phosphatase (38-126) Units/L Troponin I 0.01 (0-0.03) ng/mL B-Natriuretic Peptide 226 H (0-100) pg/mL Serum Total Protein (6.0-8.3) g/dL Albumin (3.5-5.0) g/dL Globulin (2.4-3.5) g/dL Albumin/Globulin Ratio (1.1-2.2) - Radiology Data Radiology results reviewed: Yes I reviewed the patient's radiology results. - EKG Data EKG #1 EKG attestation: Yes I reviewed and interpreted this EKG. EKG results narrative: 15:11 Ventricular rate 70 bpm, GA interval 200 ms, QRS duration 102 ms, QT 399 ms, QTC 424 ms, borderline left axis deviation Sinus rhythm with a ventricular rate of 72 bpm. There are no signs of any ischemic ST changes on this electrocardiogram. Attestation Statement - Attestation Attestation: I examined this patient and my medical decision-making was reviewed with the Resident Physician. I agree with the documented findings, disposition and treatment plan as described except to the extent set forth below. Admitted with acute renal failure.
[2017-02-12] MEDS ORDERED: Furosemide 40 MG/4 ML VIAL IVP ONE ×2 (16:35→20:19)
[2017-02-12] MEDS ORDERED: Naloxone 0.4 MG/ML INJ IVP PRN (18:14)
--- NOTE | 2017-02-12 18:34 | Internal Med History&Physical ---
<Schuyler Johnson J - Last Filed: 02/12/17 19:00> Date of Encounter: 02/12/17 Time of Encounter: 18:32 Assessment and Plan (1) Acute worsening of stage 3 chronic kidney disease Current visit: Yes Status: Acute Chronic kidney disease stage III being followed by Dr. Flores nephrology. Hyperkalemia and worsening creatinine at 4.02. Dr. Engel consulted via ED physician. We will see patient in the morning 1 dose IV push Lasix given an ED Continue on Lasix Kayexalate one time dose for hypernatremia BMP in the morning (2) CHF exacerbation Current visit: Yes Status: Chronic Acute on chronic exacerbation of congestive heart failure. Bilateral lower extremity swelling and worsening shortness of breath over the last few days. There is some concern to provide additional Lasix due to worsening renal function. Nephrology on board for further management. One-time dose 40 mg IV Lasix given in ED Continue home dose of Lasix 1500 ML fluid restriction Qualifiers: Congestive heart failure type: unspecified congestive heart failure type Qualified Code(s): I50.9 - Heart failure, unspecified (3) Diabetes mellitus Current visit: Yes Status: Chronic Chronic type II diabetic on long-term insulin basal and fast acting. Continue basal insulin at home dose place patient on low sliding scale insulin coverage while inpatient. Before meals at bedtime Accu-Cheks, cardiac and diabetic diet. 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 Continue CCB, BP, and hydralazine. Continue monitor hemodynamic status. Is mildly hypertensive at this time Qualifiers: Hypertension type: essential hypertension Qualified Code(s): I10 - Essential (primary) hypertension (5) Anemia Current visit: Yes Status: Acute Chronic iron deficiency anemia. Receives iron infusions at the [facility]. H&H stable compared to baseline. Continue to monitor CBC in the morning Qualifiers: Anemia type: iron deficiency Iron deficiency anemia type: unspecified iron deficiency Qualified Code(s): D50.9 - Iron deficiency anemia, unspecified (6) Hyperkalemia Current visit: Yes Status: Acute Hyperkalemia in the setting of worsening renal function. Potassium 5.4. If one dose Kayexalate now and recheck potassium in the morning (7) DVT prophylaxis Current visit: Yes Status: Acute Heparin 5000 units subcutaneous every 12 hours Internal Medicine - H&P: HPI Chief complaint: Shortness of breath and increased bilateral lower extremity swelling Admitted From: Home Plans for Post Hospital Care: Home History of present illness: Ms. Bazan is a 71 year old female with a PMH of arthritis, asthma, CHF, DM, HLD , HTN, renal symptoms acutely. She is followed by Dr. Jama nephrology. She presents today with orders of breath that is worse than baseline over the last few days and bilateral lower extremity swelling. She was additionally noted to have worsening renal function and hyperkalemia. Denies any fever, night sweats, fatigue, lower extremity pain. Admits to chills and bilateral extremity swelling. Past Med Surg Social Fam HX - Past Medical History Medical history: arthritis, asthma, CHF, diabetes, hyperlipidemia, hypertension , kidney stones, renal disease Psychiatric history: no psych history - Past Surgical History Surgical History: , knee replacement - Social History Smoking Status: Never smoker Smokeless Tobacco Status: No Alcohol use: rarely, occasionally Drug use: none - Family History Mother Adopted: No Family Member Ethnicity: Non- Living Status: Hx Family Cardiac Disorders: Yes (CHF) Hx Family Respiratory Disorders: No Hx Family Cancer: Yes Hx Family GI Disorders: No Hx Family Endocrine Disorder: No Hx Family Neuromuscular Disorders: No Hx Family Neurologic Disorders: No Hx Family HEENT Disorders: No Hx Family Autoimmune Disorders: No Internal Medicine - H&P: Meds Albuterol Sulfate [Albuterol Inhaler] 2 puff IH Q4HR PRN 12/18/14 [History] Aspirin Enteric Coated [Aspirin EC] 81 mg PO QAM 12/18/14 [History] Atorvastatin [Lipitor] 40 mg PO QPM 12/18/14 [History] Budesonide/Formoterol 160/4.5 [Symbicort] 2 puff IH BID 12/18/14 [History] Cholecalciferol (Vitamin D3) [Vitamin D3] 2,000 unit PO QAM 12/18/14 [History] Diltiazem CD (24hr) [Cardizem CD] 240 mg PO QAM 12/18/14 [History] Insulin Glargine,Hum.rec.anlog [Lantus Solostar] 26 unit SQ BID 12/18/14 [ History] Montelukast [Singulair] 10 mg PO QPM 12/18/14 [History] Ferrous Sulfate [Iron] 325 mg PO QAM 04/25/16 [History] Furosemide [Lasix] 40 mg PO QAM 04/25/16 [History] Vit A/Vit C/Vit E/Zinc/Copper [Preservision Areds Tablet] 1 tab PO BID 04/25/16 [History] Labetalol [Trandate] 100 mg PO TID #90 tablet 04/29/16 [Rx] hydrALAZINE [HydrALAZINE] 25 mg PO BID #60 tablet 04/29/16 [Rx] Darbepoetin [Aranesp] 100 mcg IJ Q2W 11/05/16 [History] Insulin LISPRO [Humalog Kwikpen U-100] 0 unit SQ BIDWM 11/05/16 [History] Loratadine [Allergy Relief] 10 mg PO DAILY 12/18/16 [History] Azithromycin [Azithromycin 6-Tab Pack] 250 mg PO PER PKG DI #6 tab 02/09/17 [Rx] Cephalexin [Keflex] 500 mg PO BID #14 capsule 02/09/17 [Rx] 3 Allergy/AdvReac Type Severity Reaction Status Date / Time acetaminophen [From Percocet] AdvReac Nausea Verified 11/09/16 23:53 hydrocodone AdvReac Nausea Verified 11/09/16 23:53 Oxycodone [From Percocet] AdvReac Nausea Verified 11/09/16 23:53 propoxyphene [From Darvon] AdvReac Nausea Verified 11/09/16 23:53 Sulfa (Sulfonamide AdvReac Nausea Verified 11/09/16 23:53 Antibiotics) All Systems PM: A 10-system review of systems was performed and is negative for pertinent findings except as documented above in the HPI. - Constitutional Constitutional: as per HPI, chills, no fatigue, no fever(s), no night sweats, no weakness - EENT Eyes: no change in vision, no discharge, no pain, no photophobia Ears: no ear discharge, no ear pain, no tinnitus Nose, mouth and throat: no dysphagia, no nasal discharge, no neck pain, no sore throat - Cardiovascular Cardiovascular ROS IM: dyspnea, edema, no chest pain, no diaphoresis, no lightheadedness, no palpitations, no syncope - Respiratory Respiratory: dyspnea, no cough, no wheezing, no excessive phlegm production - Gastrointestinal Gastrointestinal: no abdominal pain, no diarrhea, no hematemesis, no hematochezia, no melena, no nausea, no vomiting - Genitourinary Genitourinary: no change in urinary stream, no dysuria, no flank pain, no hematuria - Musculoskeletal Musculoskeletal ROS IM: no numbness, no tingling - Integumentary Integumentary IM: no rash, no unusual bruising - Neurological Neurological ROS: no confusion, no convulsions, no focal weakness, no numbness, no tingling, no tremor(s) - Hematologic/Lymphatic Hematologic/Lymphatic: no easy bruising - Constitutional Vitals: Temp Pulse Resp BP Pulse Ox 97.6 F 71 16 151/79 93 02/12/17 16:43 02/12/17 16:43 02/12/17 16:43 02/12/17 16:43 02/12/17 16:43 General appearance: Present: cooperative, mild distress, A&O X 3, answers questions appropriately - Neck Neck exam general surgery: Present: supple, trachea midline. Absent: lymphadenopathy - Respiratory Respiratory exam: Present: decreased breath sounds, CTAB. Absent: accessory muscle use, rales, rhonchi, wheezes - Cardiovascular Cardiovascular exam: Present: RRR, +S1, +S2. Absent: diastolic murmur, gallop, rubs, systolic murmur - GI/Abdominal GI/Abdominal exam: Present: normal bowel sounds, soft, no peritoneal signs. Absent: distended, tenderness - Extremities Exam Extremities exam: Present: normal capillary refill, pedal edema. Absent: calf tenderness - Neurological Exam Neurological exam: Present: CN II-XII intact, oriented X3, no focal deficits. Absent: pronater drift, facial droop, speech deficit - Skin Skin exam: Present: dry, intact Internal Med - H&P Results - Labs CBC & Chem 7: 02/12/17 14:25 02/12/17 14:25 - EKG Data -: EKG Interpreted by Myself EKG shows normal: sinus rhythm - EKG Data Prior EKG available for review: yes When compared to previous EKG: there is no significant change - Diagnostic Studies Chest x-ray Status: image reviewed by me Additional comments: Trace bibasilar pleural effusions <Anival Hamilton - Last Filed: 02/12/17 20:20> Date of Encounter: 02/12/17 Internal Medicine - H&P: HPI History of present illness: Ms. Bazan is a 71 year old female All Systems PM: A 10-system review of systems was performed and is negative for pertinent findings except as documented above in the HPI. - Constitutional Vitals: Temp Pulse Resp BP Pulse Ox 97.4 F L 80 16 155/65 94 02/12/17 19:26 02/12/17 19:26 02/12/17 19:26 02/12/17 19:26 02/12/17 19:26 Internal Med - H&P Results - Labs CBC & Chem 7: 02/12/17 14:25 02/12/17 14:25 - Attending Attestation I independently obtained history and examined this patient and my medical decision-making was reviewed with the nurse practitioner. I agree with the documented findings, disposition and treatment plan as described. My findings are summarized below: Patient presented to the hospital with shortness of breath. On exam she is in no acute distress. Lung sounds are diminished at the bases. Heart is regular. Extremities have 2+ pitting edema bilaterally. Plan: Continue antibiotics for pneumonia. Start IV Lasix 40 mg daily. Consult nephrology. Anival Hamilton MD
[2017-02-12] MEDS ORDERED: *HR* Dextrose 50 % in Water (Syg) 50 ML SYRINGE IVP PRN (18:46)
[2017-02-12] MEDS ORDERED: Dextrose Gel 15 GM PO PRN ×2 (18:46)
[2017-02-12] MEDS ORDERED: D5% in Water 1,000 ML IVC PRN (18:46)
[2017-02-12] MEDS: Insulin LISPRO 300 UNITS/3 ML VIAL SQ SCH (18:59)
[2017-02-12] MEDS: Budesonide/Formoterol 160/4.5 MDI IH SCH (20:21)
[2017-02-12] MEDS: hydrALAZINE 25 MG TABLET PO SCH (20:54)
[2017-02-12] MEDS: cephALEXin 500 MG CAPSULE PO SCH (20:55)
[2017-02-12] MEDS: Insulin DETEMIR 100 UNIT/ML X5UNITS SQ SCH (20:57)
[2017-02-12] MEDS ORDERED: Insulin LISPRO 300 UNITS/3 ML VIAL SQ SCH (21:00)
[2017-02-13 03:15] LABS: Basophils % 0.3 %; Eosinophils # 0.3 K/mcL (0.0-0.6); Eosinophils % 4.4 %; Hematocrit 27.6 % (35.3-44.9); Hemoglobin 8.3 g/dL (11.5-15.4); Immature Granulocytes % 0.6 % (0-4); Lymphocytes # 0.9 K/mcL (0.6-4.6); Mean Corpuscular HGB Conc 30.1 g/dL (31.6-35.5); Mean Corpuscular Hemoglobin 27.5 pg (28.0-33.3); Mean Corpuscular Volume 91.4 fL (83.0-100.0); Mean Platelet Volume 10.6 fL (9.4-12.4); Monocytes # 0.6 K/mcL (0.0-1.3); Neutrophils # 5.2 K/mcL (1.6-8.9); Nucleated Red Blood Cells 0.3 /100 WBC (0); Platelet Count 262 K/mcL (140-400); Red Blood Count 3.02 M/mcL (3.82-4.97); Red Cell Distribution Width 16.6 % (11.5-14.5); Segmented Neutrophils % 73.7 %
[2017-02-13 03:24] LABS: Calcium 9.1 mg/dL (8.6-10.8); Potassium 4.5 mEq/L (3.5-4.5)
[2017-02-13] MEDS: *HR* Heparin 5,000 UNIT/ML VIAL SQ SCH ×2 (06:27→17:59)
[2017-02-13 08:33] LABS: Bilirubin,Urine Negative (Negative); Blood,Urine Negative (Negative); Clarity,Urine Clear (Clear); Color,Urine Yellow (Yellow); Glucose,Urine (UA) Normal (Normal); Ketones,Urine Negative (Negative); Leukocyte Esterase,Urine Negative (Negative); Nitrite,Urine Negative (Negative); Protein,Urine Trace mg/dL (Neg-Trace); Specific Gravity,Urine 1.014 (1.010-1.025); Urobilinogen,Urine Normal (Normal)
--- NOTE | 2017-02-13 08:47 | Nephrology Consult Note ---
Date of Encounter: 02/13/17 Time of Encounter: 08:45 Assessment and Plan (1) Chronic kidney disease, stage V Current Visit: Yes Status: Acute The patient has progressive stage V chronic kidney disease in the setting of diabetes and hypertension. Her GFR is now 11. She is experiencing worsening volume overload, shortness of breath, lower extremity edema, as well as weakness and lethargy and fatigue. Had a long discussion with the patient and her family. We have decided to proceed with placement of a tunnel dialysis catheter and to initiate chronic dialysis. She will continue on Aranesp for her anemia and also will receive some parenteral iron. QUESTIONS were answered. 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 use Chronic kidney disease stage: stage 5, not on chronic dialysis Qualified Code(s): E11.22 - Type 2 diabetes mellitus with diabetic chronic kidney disease; N18.5 - Chronic kidney disease, stage 5; N18.5 - Chronic kidney disease, stage 5; N18.5 - Chronic kidney disease, stage 5; N18.5 - Chronic kidney disease, stage 5; Z79.4 - snf (current) use of insulin; Z79.4 - snf (current) use of insulin ; Z79.4 - buttermaker continuous churn (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 Patient presents with worsening shortness of breath as well as lower extremity swelling. Over the past week she has been experiencing progressive increases in exertional dyspnea and orthopnea. She has not had any cough or sputum production. In general she has been feeling weak. Her energy level has been low. Her renal function has been worsening. Baseline creatinine recently had been between 3.1-3.5. She is currently up to 3.93 with a GFR of 11. Past Med Surg Social Fam HX - Past Medical History Medical history: arthritis, asthma, CHF, diabetes, hyperlipidemia, hypertension , kidney stones, renal disease Psychiatric history: no psych history - Past Surgical History Surgical History: , knee replacement - Social History Smoking Status: Never smoker Smokeless Tobacco Status: No Alcohol use: rarely, occasionally Drug use: none - Family History Mother Adopted: No Family Member Ethnicity: Non- Living Status: Hx Family Cardiac Disorders: Yes (CHF) Hx Family Respiratory Disorders: No Hx Family Cancer: Yes Hx Family GI Disorders: No Hx Family Endocrine Disorder: No Hx Family Neuromuscular Disorders: No Hx Family Neurologic Disorders: No Hx Family HEENT Disorders: No Hx Family Autoimmune Disorders: No Medications and Allergies Albuterol Sulfate [Albuterol Inhaler] 2 puff IH Q4HR PRN 12/18/14 [History] Aspirin Enteric Coated [Aspirin EC] 81 mg PO QAM 12/18/14 [History] Atorvastatin [Lipitor] 40 mg PO QPM 12/18/14 [History] Budesonide/Formoterol 160/4.5 [Symbicort] 2 puff IH BID 12/18/14 [History] Cholecalciferol (Vitamin D3) [Vitamin D3] 2,000 unit PO QAM 12/18/14 [History] Diltiazem CD (24hr) [Cardizem CD] 240 mg PO QAM 12/18/14 [History] Insulin Glargine,Hum.rec.anlog [Lantus Solostar] 26 unit SQ BID 12/18/14 [ History] Montelukast [Singulair] 10 mg PO QPM 12/18/14 [History] Ferrous Sulfate [Iron] 325 mg PO QAM 04/25/16 [History] Furosemide [Lasix] 40 mg PO QAM 04/25/16 [History] Vit A/Vit C/Vit E/Zinc/Copper [Preservision Areds Tablet] 1 tab PO BID 04/25/16 [History] Labetalol [Trandate] 100 mg PO TID #90 tablet 04/29/16 [Rx] hydrALAZINE [HydrALAZINE] 25 mg PO BID #60 tablet 04/29/16 [Rx] Darbepoetin [Aranesp] 100 mcg IJ Q2W 11/05/16 [History] Insulin LISPRO [Humalog Kwikpen U-100] 0 unit SQ BIDWM 11/05/16 [History] Loratadine [Allergy Relief] 10 mg PO DAILY 12/18/16 [History] Azithromycin [Azithromycin 6-Tab Pack] 250 mg PO PER PKG DI #6 tab 02/09/17 [Rx] Cephalexin [Keflex] 500 mg PO BID #14 capsule 02/09/17 [Rx] 3 Allergy/AdvReac Type Severity Reaction Status Date / Time acetaminophen [From Percocet] AdvReac Nausea Verified 11/09/16 23:53 hydrocodone AdvReac Nausea Verified 11/09/16 23:53 Oxycodone [From Percocet] AdvReac Nausea Verified 11/09/16 23:53 propoxyphene [From Darvon] AdvReac Nausea Verified 11/09/16 23:53 Sulfa (Sulfonamide AdvReac Nausea Verified 11/09/16 23:53 Antibiotics) Review of Systems Constitutional: as per HPI, weakness, weight gain Eyes: bilateral: blurred vision (patient denies), diplopia (patient denies) Nose, mouth and throat: no dizziness, no headache(s) Cardiovascular: dyspnea, dyspnea on exertion, edema, leg edema, orthopnea, paroxysmal nocturnal dyspnea, no chest pain, no palpitations Respiratory: dyspnea, dyspnea on exertion Gastrointestinal: no abdominal pain, no change in bowel habits Musculoskeletal: no muscle weakness, no numbness Integumentary: no hirsutism, no striae Neurological: weakness Psychiatric: no depression, no difficulty concentrating Endocrine: as per HPI Hematologic/Lymphatic: no easy bruising, no lymphadenopathy Exam - Vital Signs Vital signs: Initial Vital Signs Temp Pulse Resp BP Pulse Ox 97.6 F 69 20 139/52 91 02/12/17 13:27 02/12/17 13:27 02/12/17 13:27 02/12/17 13:27 02/12/17 13:27 Vital Signs - Last 8 Hours Temp Pulse Resp BP Pulse Ox 02/13/17 07:40 97.5 F L 81 16 146/62 96 02/13/17 03:34 97.7 F 80 16 127/72 94 Intake and Output 02/12/17 02/13/17 02/13/17 23:59 07:59 15:59 Output Total 400 / 400 Balance -400 / -400 Output: Urine 400 / 400 Other: Weight 106.7 kg Blood Glucose* 242 144 Patient Weight 02/13/17 23:59 Weight 106.7 kg - General Appearance Exam: Patient is alert and oriented. She is in no acute distress. She appears chronically ill. She is currently sitting up in a chair. Vital signs are stable. Lungs sounds bilaterally. Heart regular rate and rhythm with a 2/6 systolic ejection murmur. Abdomen shows normal bowel sounds bruits masses or megaly or tenderness. Lower extremities show 1-2+ lower extremity swelling. Results - Lab Results 02/13/17 02:34 02/13/17 02:34 Most recent lab results Calcium 9.1 mg/dL (8.6-10.8) 02/13/17 02:34 Consult Discharge Plan - Plan Referrals: Polina Crawford MD [Primary Care Provider] - (web request sent on 02/13/17 )
[2017-02-13] MEDS ORDERED: Ferumoxytol 510 MG in 0.9 % Sodium Chloride 100 ML IVPB ONE (08:51)
[2017-02-13] MEDS ORDERED: 0.9 % Sodium Chloride 250 ML IVC PRN (08:52)
[2017-02-13] MEDS ORDERED: Azithromycin 250 MG TABLET PO SCH (09:00)
[2017-02-13] MEDS: Loratadine 10 MG TABLET PO SCH (09:00)
[2017-02-13] MEDS ORDERED: Furosemide 20 MG TABLET PO SCH (09:00)
[2017-02-13] MEDS: hydrALAZINE 25 MG TABLET PO SCH ×2 (09:00→21:16)
[2017-02-13] MEDS: Cholecalciferol (D-3) 1,000 UNIT TABLET PO SCH (09:00)
[2017-02-13] MEDS: cephALEXin 500 MG CAPSULE PO SCH ×2 (09:00→21:16)
[2017-02-13] MEDS ORDERED: Darbepoetin 100 MCG/0.5 ML SYRINGE SQ SCH (09:00)
[2017-02-13] MEDS: Insulin LISPRO 300 UNITS/3 ML VIAL SQ SCH ×3 (09:01→21:14)
[2017-02-13] MEDS: Aspirin Enteric Coated 81 MG Tablet PO SCH (09:01)
[2017-02-13] MEDS: Diltiazem CD (24hr) 240 MG CAPSULE PO SCH (09:01)
[2017-02-13] MEDS: Furosemide 40 MG/4 ML VIAL IVP SCH (09:01)
[2017-02-13 09:12] LABS: Phosphorous 5.1 mg/dL (2.3-4.7)
[2017-02-13] MEDS: Insulin DETEMIR 100 UNIT/ML X5UNITS SQ SCH ×2 (09:12→21:16)
[2017-02-13 10:35] LABS: Hepatitis B Surface Antibody 0.26 mIU/mL; Hepatitis B Surface Antigen Nonreactive (Nonreactive)
[2017-02-13] MEDS: Budesonide/Formoterol 160/4.5 MDI IH SCH ×2 (10:59→20:59)
[2017-02-13] MEDS ORDERED: Heparin 1,000 UNITS/500 mL NS 500 ML ONE (13:35)
--- NOTE | 2017-02-13 13:47 | Internal Med Progress Note ---
Date of Encounter: 02/13/17 Time of Encounter: 13:47 - Assessment and plan (1) Acute on chronic diastolic (congestive) heart failure Current Visit: Yes Status: Chronic Assessment and plan: With fluid overload and worsening renal function. He is clinically getting better. Plan to start on hemodialysis. Volume management with hemodialysis. (2) Anemia Current Visit: Yes Status: Chronic Assessment and plan: Due to chronic kidney disease. Hemoglobin 8.3. We will continue to monitor. Erythropoietin per nephrology recommendations. Qualifiers: Anemia type: due to chronic kidney disease Chronic kidney disease stage: stage 4 (severe) Qualified Code(s): N18.4 - Chronic kidney disease, stage 4 ( severe); D63.1 - Anemia in chronic kidney disease (3) Diabetes mellitus Current Visit: Yes Status: Chronic Assessment and plan: Blood sugars ranging between 180 and 200. We will increase sliding scale coverage. Qualifiers: Diabetes mellitus type: type 2 Diabetes mellitus complication status: with kidney complications Diabetes mellitus complication detail: with chronic kidney disease Diabetes mellitus [facility] insulin use: with stitcher set up operator automatic use Chronic kidney disease stage: stage 4 (severe) Qualified Code(s): E11.22 - Type 2 diabetes mellitus with diabetic chronic kidney disease; N18.4 - Chronic kidney disease, stage 4 (severe); N18.4 - Chronic kidney disease, stage 4 ( severe); N18.4 - Chronic kidney disease, stage 4 (severe); N18.4 - Chronic kidney disease, stage 4 (severe); 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 (5) Hypertension Current Visit: Yes Status: Chronic Assessment and plan: Blood pressure borderline elevated. We will monitor for now and adjust medications as needed. Expected decrease in blood pressure with hemodialysis. Qualifiers: Hypertension type: essential hypertension Qualified Code(s): I10 - Essential (primary) hypertension (6) Pneumonia Current Visit: No Status: Chronic Assessment and plan: Patient was being treated outpatient with antibiotics. Will complete antibiotic course. Qualifiers: Pneumonia type: due to unspecified organism Laterality: unspecified laterality Lung location: unspecified part of lung Qualified Code(s): J18.9 - Pneumonia, unspecified organism (7) Chronic kidney disease, stage V Current Visit: Yes Status: Acute Assessment and plan: Progressive chronic kidney disease. Nephrology evaluated patient and recommended initiation of hemodialysis. Patient will be dialyzed today after placement of perm dialysis catheter. - Subjective Interval history: Patient is awake and alert. Sitting up in chair. Feels much better compared to yesterday. Is scheduled to undergo placement of dialysis catheter later today and undergo hemodialysis beginning today. Denies any chest pain. No nausea or vomiting. Shortness of breath is improving. - Constitutional Vitals: Temp Pulse Resp BP Pulse Ox 97.7 F 72 17 148/77 94 02/13/17 11:55 02/13/17 11:55 02/13/17 11:55 02/13/17 11:55 02/13/17 11:55 General appearance: Present: cooperative, mild distress, A&O X 3, answers questions appropriately - Neck Neck exam general surgery: Present: supple, trachea midline. Absent: lymphadenopathy - Respiratory Respiratory exam: Present: CTAB. Absent: accessory muscle use, rales, rhonchi, wheezes - Cardiovascular Cardiovascular exam: Present: RRR, +S1, +S2. Absent: diastolic murmur, gallop, rubs, systolic murmur - GI/Abdominal GI/Abdominal exam: Present: normal bowel sounds, soft, no peritoneal signs. Absent: distended, tenderness - Extremities Exam Extremities exam: Present: pedal edema, warm, radial pulses palpable and symmetrical. Absent: calf tenderness, cyanotic Internal Medicine: Result - Labs CBC & Chem 7: 02/13/17 02:34 02/13/17 02:34 Labs: Short CBC 02/13/17 Range/Units 02:34 WBC 7.0 (4.3-11.1) K/mcL Hgb 8.3 L (11.5-15.4) g/dL Hct 27.6 L (35.3-44.9) % Plt Count 262 (140-400) K/mcL Neutrophils # 5.2 (1.6-8.9) K/mcL BMP 02/13/17 02:34 Sodium 143 Potassium 4.5 Chloride 113 H Carbon Dioxide 17 L BUN 112 H Creatinine 3.93 H Glucose 166 H Calcium 9.1 Urine 02/13/17 Range/Units 07:52 Urine Color Yellow (Yellow) Urine Clarity Clear (Clear) Urine pH 6.0 (5.0-8.0) pH Units Ur Specific [place] 1.014 (1.010-1.025) Urine Protein Trace (Neg-Trace) mg/dL Urine Glucose (UA) Normal (Normal) mg/dL - ABG Interpretation ABG results: PT/INR, D-dimer PT 10.9 Seconds (9.4-12.1) 02/12/17 14:25 Consult Discharge Plan - Plan Referrals: Polina Crawford MD [Primary Care Provider] - (web request sent on 02/13/17 )
[2017-02-13] MEDS ORDERED: ceFAZolin 2,000 MG in D5% in Water 100 ML IVPB ONE (14:54)
--- NOTE | 2017-02-13 15:12 | IR Procedure Note ---
Date of procedure: 02/13/17 Consent Obtained: Verbal consent, Written consent Timeout: Correct patient and procedure verified, Correct site verified, Time out performed, Skin prep completed Local anesthetic: Lidocaine 1% Indications: Chronic renal failure Procedure Performed: Tunneled HD catheter placement Site/Technique: Tunneled right IJ HD catheter placed in VIR Results/Findings: Catheter in good position Estimated blood loss (cc): 1 Complications: None; Tolerated procedure well Post Procedure Treatment Plan: May use HD catheter now
--- NOTE | 2017-02-13 18:26 | Electrocardiograph Report ---
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
[2017-02-14] MEDS: Acetaminophen 325 MG TABLET PO PRN ×2 (04:13→23:29)
[2017-02-14] MEDS: *HR* Heparin 5,000 UNIT/ML VIAL SQ SCH ×2 (05:44→17:55)
[2017-02-14 06:46] LABS: Basophils % 0.3 %; Eosinophils # 0.3 K/mcL (0.0-0.6); Eosinophils % 4.1 %; Hemoglobin 8.6 g/dL (11.5-15.4); Immature Granulocytes % 1.1 % (0-4); Lymphocytes # 1.1 K/mcL (0.6-4.6); Lymphocytes % 15.1 %; Mean Corpuscular HGB Conc 30.7 g/dL (31.6-35.5); Mean Corpuscular Hemoglobin 27.6 pg (28.0-33.3); Mean Corpuscular Volume 89.7 fL (83.0-100.0); Mean Platelet Volume 10.2 fL (9.4-12.4); Monocytes # 0.7 K/mcL (0.0-1.3); Monocytes % 9.5 %; Neutrophils # 5.1 K/mcL (1.6-8.9); Nucleated Red Blood Cells 0.4 /100 WBC (0); Platelet Count 308 K/mcL (140-400); Red Blood Count 3.12 M/mcL (3.82-4.97); Red Cell Distribution Width 16.8 % (11.5-14.5); Segmented Neutrophils % 69.9 %
[2017-02-14 07:03] LABS: Albumin 2.5 g/dL (3.5-5.0); Albumin/Globulin Ratio 0.6 (1.1-2.2); Bilirubin,Total 0.2 mg/dL (0.2-1.2); Calcium 9.3 mg/dL (8.6-10.8); Globulin 4.2 g/dL (2.4-3.5); Total Protein 6.7 g/dL (6.0-8.3)
[2017-02-14] MEDS ORDERED: Ferumoxytol 510 MG in 0.9 % Sodium Chloride 100 ML IVPB ONE (08:18)
--- NOTE | 2017-02-14 08:18 | Nephrology Progress Note ---
Date of Encounter: 02/14/17 Time of Encounter: 08:17 - Assessment and Plan (1) Chronic kidney disease, stage V Current Visit: Yes Status: Acute The patient will continue with dialysis every Thursday. I am going to give her another dose of intravenous iron today. She is on Aranesp for her anemia. We will make arrangements for outpatient dialysis on Thursday. (2) Anemia in CKD (chronic kidney disease) Current Visit: Yes Status: Acute Qualifiers: Chronic kidney disease stage: stage 5, not on chronic dialysis Qualified Code(s): N18.5 - Chronic kidney disease, stage 5; D63.1 - Anemia in chronic kidney disease; D63.1 - Anemia in chronic kidney disease (3) Chronic diastolic CHF (congestive heart failure) Current Visit: Yes Status: Acute (4) Benign hypertension with chronic kidney disease, stage V Current Visit: Yes Status: Acute (5) Type 2 diabetes mellitus with diabetic chronic kidney disease Current Visit: Yes Status: Acute Qualifiers: Diabetes mellitus fdc insulin use: with fdc use Chronic kidney disease stage: stage 5, not on chronic dialysis Qualified Code(s): E11.22 - Type 2 diabetes mellitus with diabetic chronic kidney disease; N18.5 - Chronic kidney disease, stage 5; N18.5 - Chronic kidney disease, stage 5; N18.5 - Chronic kidney disease, stage 5; N18.5 - Chronic kidney disease, stage 5; Z79.4 - termite treater (current) use of insulin; Z79.4 - detention (current) use of insulin ; Z79.4 - detention (current) use of insulin; Z79.4 - termite treater (current) use of insulin Subjective Interval history: Patient had a lot of muscle cramping following dialysis yesterday. This morning she says she feels better. Her breathing is improved. Objective - Vital Signs Vital signs: Vital Signs Temp Pulse Resp BP Pulse Ox 02/14/17 04:20 98.5 F 90 18 147/69 92 02/14/17 00:32 98.3 F 88 18 134/66 94 02/13/17 20:59 14 97 02/13/17 20:10 98.0 F 86 122/68 95 02/13/17 17:55 97.2 F L 17 153/67 02/13/17 17:40 127/53 02/13/17 17:25 140/68 02/13/17 17:10 117/61 02/13/17 16:55 129/67 02/13/17 16:40 136/62 02/13/17 16:25 156/72 02/13/17 16:10 155/69 02/13/17 15:55 173/73 02/13/17 15:40 97.2 F L 18 173/72 02/13/17 15:02 79 26 159/50 98 02/13/17 11:55 97.7 F 72 17 148/77 94 02/13/17 10:59 18 96 02/13/17 09:27 146/62 Intake and Output 02/13/17 02/14/17 02/14/17 23:59 07:59 15:59 Output Total 2600 / 2600 100 / 100 Balance -2600 / -2600 -100 / -100 Output: Urine 0 / 0 100 / 100 Total Dialysis (HD) Output 2600 / 2600 Other: Weight 102.24 kg Blood Glucose* 200 Hemodialysis Net Fluid Removed 2000 (mL) Patient Weight 02/14/17 23:59 Weight 102.24 kg - General Appearance Exam: Patient is alert and oriented. She is in no acute distress. Lungs clear to auscultation. Heart regular rate and rhythm. Abdomen is benign. His less lower extremity swelling. There is a tunnel dialysis catheter in the right chest. - Lab 02/14/17 05:50 02/14/17 05:50 Most recent lab results Calcium 9.3 mg/dL (8.6-10.8) 02/14/17 05:50 Phosphorus 5.1 mg/dL (2.3-4.7) H 02/13/17 02:34 Magnesium 1.5 mg/dL (1.6-2.6) L 02/14/17 05:50 Consult Discharge Plan - Plan Referrals: Polina Crawford MD [Primary Care Provider] - 02/19/17 2:00 pm ()
[2017-02-14] MEDS: Insulin LISPRO 300 UNITS/3 ML VIAL SQ SCH ×4 (08:41→21:24)
[2017-02-14] MEDS: Cholecalciferol (D-3) 1,000 UNIT TABLET PO SCH (08:44)
[2017-02-14] MEDS: Loratadine 10 MG TABLET PO SCH (08:44)
[2017-02-14] MEDS: Furosemide 40 MG/4 ML VIAL IVP SCH (08:44)
[2017-02-14] MEDS: cephALEXin 500 MG CAPSULE PO SCH ×2 (08:44→21:23)
[2017-02-14] MEDS: Diltiazem CD (24hr) 240 MG CAPSULE PO SCH (08:45)
[2017-02-14] MEDS: hydrALAZINE 25 MG TABLET PO SCH ×3 (08:45→21:23)
[2017-02-14] MEDS: Aspirin Enteric Coated 81 MG Tablet PO SCH (08:45)
[2017-02-14] MEDS: Insulin DETEMIR 100 UNIT/ML X5UNITS SQ SCH ×2 (09:49→23:30)
[2017-02-14] MEDS: Budesonide/Formoterol 160/4.5 MDI IH SCH ×2 (10:50→20:54)
--- NOTE | 2017-02-14 14:38 | Internal Med Progress Note ---
Date of Encounter: 02/14/17 Time of Encounter: 11:00 - Assessment and plan (1) Acute on chronic diastolic (congestive) heart failure Current Visit: Yes Status: Acute Assessment and plan: improving. Continue volume management with hemodialysis per nephrology recommendations. (2) End-stage renal disease on hemodialysis Current Visit: Yes Status: Acute Assessment and plan: continue dialysis per nephrology recommendations. (3) Anemia Current Visit: Yes Status: Chronic Assessment and plan: patient receiving intravenous iron therapy. Hemoglobin levels remain stable. Qualifiers: Anemia type: due to chronic kidney disease Chronic kidney disease stage: stage 4 (severe) Qualified Code(s): N18.4 - Chronic kidney disease, stage 4 ( severe); D63.1 - Anemia in chronic kidney disease (4) Diabetes mellitus Current Visit: Yes Status: Chronic Assessment and plan: continue current insulin regimen. Monitor blood sugars closely. Continue diabetic diet. Qualifiers: Diabetes mellitus type: type 2 Diabetes mellitus complication status: with kidney complications Diabetes mellitus complication detail: with chronic kidney disease Diabetes mellitus assisted insulin use: with superintendent terminal use Chronic kidney disease stage: on chronic dialysis Qualified Code(s): E11.22 - Type 2 diabetes mellitus with diabetic chronic kidney disease; N18.6 - End stage renal disease; N18.6 - End stage renal disease; N18.6 - End stage renal disease; N18.6 - End stage renal disease; Z79.4 - parts counterman (current) use of insulin; Z79.4 - intermediate (current) use of insulin; Z79.4 - parts counterman (current ) use of insulin; Z79.4 - parts counterman (current) use of insulin; Z99.2 - Dependence on renal dialysis; Z99.2 - Dependence on renal dialysis; Z99.2 - Dependence on renal dialysis; Z99.2 - Dependence on renal dialysis (5) Hyperkalemia Current Visit: Yes Status: Resolved (6) Hypertension Current Visit: Yes Status: Chronic Assessment and plan: Blood pressure remains elevated. Will start patient on carvedilol. Continue hydralazine. Qualifiers: Hypertension type: essential hypertension Qualified Code(s): I10 - Essential (primary) hypertension (7) Pneumonia Current Visit: No Status: Chronic Assessment and plan: complete outpatient treatment. Qualifiers: Pneumonia type: due to unspecified organism Laterality: unspecified laterality Lung location: unspecified part of lung Qualified Code(s): J18.9 - Pneumonia, unspecified organism (8) Chronic kidney disease, stage V Current Visit: Yes Status: Acute Assessment and plan: now on hemodialysis - Subjective Interval history: Patient is feeling much better today. No chest pain or shortness of breath. She did have some cramps yesterday after dialysis in her lower extremities but they have since subsided. - Constitutional Vitals: Temp Pulse Resp BP Pulse Ox 98.3 F 72 16 146/57 95 02/14/17 11:58 02/14/17 11:58 02/14/17 11:58 02/14/17 11:58 02/14/17 11:58 General appearance: Present: cooperative, mild distress, A&O X 3, answers questions appropriately - Neck Neck exam general surgery: Present: supple, trachea midline. Absent: lymphadenopathy - Respiratory Respiratory exam: Present: CTAB. Absent: accessory muscle use, rales, rhonchi, wheezes - Cardiovascular Cardiovascular exam: Present: RRR, +S1, +S2. Absent: diastolic murmur, gallop, rubs, systolic murmur - GI/Abdominal GI/Abdominal exam: Present: normal bowel sounds, soft, no peritoneal signs. Absent: distended, tenderness - Extremities Exam Extremities exam: Present: pedal edema (bilateral- improving), warm, radial pulses palpable and symmetrical. Absent: calf tenderness, cyanotic - Neurological Exam Neurological exam: Present: alert, oriented X3, no focal deficits. Absent: facial droop, speech deficit Internal Medicine: Result - Labs CBC & Chem 7: 02/14/17 05:50 02/14/17 05:50 Labs: Short CBC 02/14/17 Range/Units 05:50 WBC 7.3 (4.3-11.1) K/mcL Hgb 8.6 L (11.5-15.4) g/dL Hct 28.0 L (35.3-44.9) % Plt Count 308 (140-400) K/mcL Neutrophils # 5.1 (1.6-8.9) K/mcL BMP 02/14/17 05:50 Sodium 141 Potassium 4.0 Chloride 106 Carbon Dioxide 24 BUN 70 H D Creatinine 3.21 H Glucose 124 H Calcium 9.3 Liver Function 02/14/17 Range/Units 05:50 Total Bilirubin 0.2 (0.2-1.2) mg/dL AST 12 (5-34) Units/L ALT 18 (0-55) Units/L Alkaline Phosphatase 227 H (38-126) Units/L Albumin 2.5 L (3.5-5.0) g/dL - ABG Interpretation ABG results: PT/INR, D-dimer PT 10.9 Seconds (9.4-12.1) 02/12/17 14:25 - Impressions Impressions Guidance Needle Placement Ultrasound 02/13/17 00:00 IMPRESSION: Ultrasound and fluoroscopic guided placement of a tunneled right IJ hemodialysis catheter. No immediate complications. The catheter is ready for immediate use. D/ / Stephen Obrien MD / Stephen Obrien MD Interpreting Provider: Stephen Obrien MD Insertion Tunneled Catheter 02/13/17 00:00 IMPRESSION: Ultrasound and fluoroscopic guided placement of a tunneled right IJ hemodialysis catheter. No immediate complications. The catheter is ready for immediate use. D/ / Stephen Obrien MD / Stephen Obrien MD Interpreting Provider: Stephen Obrien MD Consult Discharge Plan - Plan Referrals: Polina Crwaford MD [Primary Care Provider] - 02/19/17 2:00 pm ()
[2017-02-15] MEDS: Acetaminophen 325 MG TABLET PO PRN ×2 (05:27→21:08)
[2017-02-15] MEDS: *HR* Heparin 5,000 UNIT/ML VIAL SQ SCH ×2 (05:27→17:33)
[2017-02-15] MEDS: Budesonide/Formoterol 160/4.5 MDI IH SCH ×2 (07:44→20:40)
--- NOTE | 2017-02-15 08:11 | Nephrology Progress Note ---
Date of Encounter: 02/15/17 Time of Encounter: 08:10 - Assessment and Plan (1) Chronic kidney disease, stage V Current Visit: Yes Status: Acute Patient will undergo dialysis tomorrow. We will make arrangement for outpatient dialysis tomorrow as well. Following that she should be able to be discharged home and continue with outpatient dialysis. I have asked her nurse to ensure that the patient ambulates in the bray today. (2) Anemia in CKD (chronic kidney disease) Current Visit: Yes Status: Acute Qualifiers: Chronic kidney disease stage: stage 5, not on chronic dialysis Qualified Code(s): N18.5 - Chronic kidney disease, stage 5; D63.1 - Anemia in chronic kidney disease; D63.1 - Anemia in chronic kidney disease (3) Chronic diastolic CHF (congestive heart failure) Current Visit: Yes Status: Acute (4) Benign hypertension with chronic kidney disease, stage V Current Visit: Yes Status: Acute (5) Type 2 diabetes mellitus with diabetic chronic kidney disease Current Visit: Yes Status: Acute Qualifiers: Diabetes mellitus terminal operations supervisor insulin use: with snf use Chronic kidney disease stage: stage 5, not on chronic dialysis Qualified Code(s): E11.22 - Type 2 diabetes mellitus with diabetic chronic kidney disease; N18.5 - Chronic kidney disease, stage 5; N18.5 - Chronic kidney disease, stage 5; N18.5 - Chronic kidney disease, stage 5; N18.5 - Chronic kidney disease, stage 5; Z79.4 - nursing home (current) use of insulin; 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 ; Z79.4 - nursing home (current) use of insulin; Z79.4 - nursing home (current) use of insulin Subjective Interval history: Patient reports she is feeling well. She denies any shortness of breath although she has not really been ambulating. Urine output is recorded is about 500 mL. Vital signs are stable. Objective - Vital Signs Vital signs: Vital Signs Temp Pulse Resp BP Pulse Ox 02/15/17 07:45 18 93 02/15/17 07:41 97.4 F L 77 17 144/73 96 02/15/17 04:06 98.4 F 84 18 145/72 94 02/14/17 23:47 98.8 F 80 18 129/55 95 02/14/17 20:55 15 97 02/14/17 19:41 98.5 F 86 17 149/75 91 02/14/17 17:30 97.8 F 79 17 122/79 98 02/14/17 15:22 75 116/75 02/14/17 11:58 98.3 F 72 16 146/57 95 02/14/17 10:52 18 94 02/14/17 08:11 98.2 F 84 18 162/77 94 Intake and Output 02/14/17 02/15/17 02/15/17 23:59 07:59 15:59 Intake Total 150 / 150 50 / 50 Output Total 300 / 300 400 / 400 Balance -150 / -150 -350 / -350 Intake: Oral 150 / 150 50 / 50 Output: Urine 300 / 300 400 / 400 Other: Stool Size Small Stool Consistency formed Stool Characteristics Normal for Patient Stool Color Brown # Voids 1 1 Weight 102.8 kg Blood Glucose* 223 162 Patient Weight 02/15/17 23:59 Weight 102.8 kg - General Appearance Exam: Patient is alert and oriented. She is in no acute distress. Lungs clear to auscultation. Heart regular rate and rhythm. Abdomen is benign. There is minimal lower extremity swelling. There is a tunnel dialysis catheter in the right chest. - Lab 02/14/17 05:50 02/14/17 05:50 Most recent lab results Calcium 9.3 mg/dL (8.6-10.8) 02/14/17 05:50 Phosphorus 5.1 mg/dL (2.3-4.7) H 02/13/17 02:34 Magnesium 1.5 mg/dL (1.6-2.6) L 02/14/17 05:50 Consult Discharge Plan - Plan Referrals: Polina Crawford MD [Primary Care Provider] - 02/19/17 2:00 pm ()
[2017-02-15] MEDS: cephALEXin 500 MG CAPSULE PO SCH ×2 (08:15→21:08)
[2017-02-15] MEDS: Diltiazem CD (24hr) 240 MG CAPSULE PO SCH (08:15)
[2017-02-15] MEDS: Furosemide 40 MG/4 ML VIAL IVP SCH (08:15)
[2017-02-15] MEDS: Cholecalciferol (D-3) 1,000 UNIT TABLET PO SCH (08:15)
[2017-02-15] MEDS: Insulin LISPRO 300 UNITS/3 ML VIAL SQ SCH ×4 (08:15→21:09)
[2017-02-15] MEDS: hydrALAZINE 25 MG TABLET PO SCH ×3 (08:16→21:09)
[2017-02-15] MEDS: Aspirin Enteric Coated 81 MG Tablet PO SCH (08:16)
[2017-02-15] MEDS: Loratadine 10 MG TABLET PO SCH (08:16)
[2017-02-15] MEDS: Insulin DETEMIR 100 UNIT/ML X5UNITS SQ SCH (08:47)
--- NOTE | 2017-02-15 10:18 | Internal Med Progress Note ---
Date of Encounter: 02/15/17 Time of Encounter: 09:20 - Assessment and plan (1) Acute on chronic diastolic (congestive) heart failure Current Visit: Yes Status: Acute Assessment and plan: Due to fluid overload. Continues to clinically get better. Volume management with hemodialysis. (2) End-stage renal disease on hemodialysis Current Visit: Yes Status: Acute Assessment and plan: Plan for hemodialysis tomorrow. Then she will be set up for outpatient hemodialysis (3) Anemia Current Visit: Yes Status: Chronic Assessment and plan: Continue management per nephrology recommendations. Patient received IV iron therapy yesterday. Qualifiers: Anemia type: due to chronic kidney disease Chronic kidney disease stage: stage 4 (severe) Qualified Code(s): N18.4 - Chronic kidney disease, stage 4 ( severe); D63.1 - Anemia in chronic kidney disease (4) Diabetes mellitus Current Visit: Yes Status: Chronic Assessment and plan: Blood sugars are better this morning. Patient having higher blood sugars during the day. We will increase morning Levemir dosage to 32 units. Qualifiers: Diabetes mellitus type: type 2 Diabetes mellitus complication status: with kidney complications Diabetes mellitus complication detail: with chronic kidney disease Diabetes mellitus keno terminal operator insulin use: with keno terminal operator use Chronic kidney disease stage: on chronic dialysis Qualified Code(s): E11.22 - Type 2 diabetes mellitus with diabetic chronic kidney disease; N18.6 - End stage renal disease; Z99.2 - Dependence on renal dialysis; Z99.2 - Dependence on renal dialysis; Z99.2 - Dependence on renal dialysis; N18.6 - End stage renal disease; N18.6 - End stage renal disease; N18.6 - End stage renal disease ; Z79.4 - half-way (current) use of insulin; Z79.4 - termination clerk (current) use of insulin; Z79.4 - half-way (current) use of insulin; Z79.4 - half-way ( current) use of insulin; Z99.2 - Dependence on renal dialysis (5) Hyperkalemia Current Visit: Yes Status: Resolved (6) Hypertension Current Visit: Yes Status: Chronic Assessment and plan: Continue to monitor for now. Patient's hydralazine dosage had been increased yesterday to 3 times a day. Qualifiers: Hypertension type: essential hypertension Qualified Code(s): I10 - Essential (primary) hypertension (7) Pneumonia Current Visit: Yes Status: Chronic Assessment and plan: We will complete outpatient antibiotic course tomorrow. Qualifiers: Pneumonia type: due to unspecified organism Laterality: unspecified laterality Lung location: unspecified part of lung Qualified Code(s): J18.9 - Pneumonia, unspecified organism (8) Chronic kidney disease, stage V Current Visit: Yes Status: Acute - Subjective Interval history: Patient is sitting up in chair. Doing well this morning. No complaints at this time. - Constitutional Vitals: Temp Pulse Resp BP Pulse Ox 97.4 F L 77 18 144/73 93 02/15/17 07:41 02/15/17 07:41 02/15/17 07:45 02/15/17 07:41 02/15/17 07:45 General appearance: Present: cooperative, A&O X 3, no acute distress, answers questions appropriately - Neck Neck exam general surgery: Present: supple, trachea midline. Absent: lymphadenopathy - Respiratory Respiratory exam: Present: CTAB. Absent: accessory muscle use, rales, rhonchi, wheezes - Cardiovascular Cardiovascular exam: Present: RRR, +S1, +S2. Absent: diastolic murmur, gallop, rubs, systolic murmur - GI/Abdominal GI/Abdominal exam: Present: normal bowel sounds, soft, no peritoneal signs. Absent: distended, tenderness - Extremities Exam Extremities exam: Present: pedal edema (Bilateral lower extremity pedal edema. Remains stable.), warm, radial pulses palpable and symmetrical. Absent: calf tenderness, cyanotic Internal Medicine: Result - Labs CBC & Chem 7: 02/14/17 05:50 02/14/17 05:50 - ABG Interpretation ABG results: PT/INR, D-dimer PT 10.9 Seconds (9.4-12.1) 02/12/17 14:25 Consult Discharge Plan - Plan Referrals: Polina Crawford MD [Primary Care Provider] - 02/19/17 2:00 pm ()
[2017-02-15] MEDS ORDERED: Insulin DETEMIR 100 UNIT/ML X5UNITS SQ SCH (21:00)
[2017-02-16 03:30] LABS: Basophils % 0.3 %; Eosinophils # 0.5 K/mcL (0.0-0.6); Eosinophils % 4.4 %; Hemoglobin 8.9 g/dL (11.5-15.4); Lymphocytes # 1.3 K/mcL (0.6-4.6); Lymphocytes % 12.1 %; Mean Corpuscular HGB Conc 30.7 g/dL (31.6-35.5); Mean Corpuscular Hemoglobin 27.7 pg (28.0-33.3); Mean Corpuscular Volume 90.3 fL (83.0-100.0); Mean Platelet Volume 10.5 fL (9.4-12.4); Monocytes # 0.6 K/mcL (0.0-1.3); Monocytes % 5.4 %; Neutrophils # 8.1 K/mcL (1.6-8.9); Nucleated Red Blood Cells 0.6 /100 WBC (0); Platelet Count 344 K/mcL (140-400); Red Blood Count 3.21 M/mcL (3.82-4.97); Red Cell Distribution Width 16.5 % (11.5-14.5); Segmented Neutrophils % 74.8 %
[2017-02-16 03:41] LABS: Albumin 2.6 g/dL (3.5-5.0); Albumin/Globulin Ratio 0.7 (1.1-2.2); Bilirubin,Total 0.2 mg/dL (0.2-1.2); Calcium 9.6 mg/dL (8.6-10.8); Potassium 4.6 mEq/L (3.5-4.5); Total Protein 6.6 g/dL (6.0-8.3)
[2017-02-16] MEDS ORDERED: *HR* HYDROmorphone (PF) 1 MG/ML SYRINGE IVP ONE (05:45)
[2017-02-16] MEDS: *HR* Heparin 5,000 UNIT/ML VIAL SQ SCH (06:12)
--- NOTE | 2017-02-16 07:49 | Nephrology Progress Note ---
Date of Encounter: 02/16/17 Time of Encounter: 07:35 - Assessment and Plan (1) End-stage renal disease on hemodialysis Current Visit: Yes Status: Acute ESRD in setting DM and hypertension. Volume overload. Will do HD today, orders given. Will arrange for outpatient HD at [facility] and transportation. Subjective Interval history: Sitting up in chair. States she did not sleep all night due to right shoulder pain. She states she received pain medication at 0530 and has had some relief. Objective - Vital Signs Vital signs: Vital Signs Temp Pulse Resp BP Pulse Ox 02/16/17 07:43 98.2 F 81 18 141/69 93 02/16/17 04:17 98.3 F 76 18 138/70 93 02/15/17 23:51 98.0 F 77 18 130/69 96 02/15/17 20:40 16 96 02/15/17 19:35 98.3 F 73 18 131/70 94 02/15/17 15:00 97.9 F 77 16 152/75 97 02/15/17 11:52 97.6 F 64 16 114/69 97 Intake and Output 02/15/17 02/15/17 02/16/17 15:59 23:59 07:59 Intake Total 1070 / 1070 120 / 120 240 / 240 Output Total 200 / 200 575 / 575 150 / 150 Balance 870 / 870 -455 / -455 90 / 90 Intake: Oral 1070 / 1070 120 / 120 240 / 240 Output: Urine 200 / 200 575 / 575 150 / 150 Other: Meal Lunch Percent of Meal Consumed 90% Stool Size Small Small Stool Consistency soft formed formed Stool Characteristics Normal for Patient Normal for Patient Stool Color Brown # Voids 2 # Bowel Movements 1 1 Weight 103.589 kg Blood Glucose* 181 239 Patient Weight 02/16/17 23:59 Weight 103.589 kg - General Appearance General appearance: Present: well-developed, well-nourished, appears started age , obese EENT: Present: mucous membranes moist Neck: Present: no JVD Respiratory: Present: clear Cardiology: Present: edema, regular rate, regular rhythm Additional Comments: 1+ LE Gastrointestinal: Present: normoactive bowel sounds, no tenderness Integumentary: Present: warm and dry Neurologic: Present: alert and oriented x3 Psychiatric: Present: mood/affect appropriate, cooperative - Lab 02/16/17 02:41 02/16/17 02:41 Most recent lab results Calcium 9.6 mg/dL (8.6-10.8) 02/16/17 02:41 Phosphorus 5.1 mg/dL (2.3-4.7) H 02/13/17 02:34 Magnesium 1.5 mg/dL (1.6-2.6) L 02/14/17 05:50 Consult Discharge Plan - Plan Referrals: Polina Crawford MD [Primary Care Provider] - 02/19/17 2:00 pm ()
[2017-02-16] MEDS: Budesonide/Formoterol 160/4.5 MDI IH SCH (07:55)
[2017-02-16] MEDS ORDERED: 0.9 % Sodium Chloride 250 ML IVC PRN (08:19)
[2017-02-16] MEDS ORDERED: 0.9 % Sodium Chloride 1,000 ML PRIME SCH (08:30)
[2017-02-16] MEDS ORDERED: Insulin DETEMIR 100 UNIT/ML X5UNITS SQ SCH (09:00)
[2017-02-16] MEDS: Loratadine 10 MG TABLET PO SCH (09:12)
[2017-02-16] MEDS: Aspirin Enteric Coated 81 MG Tablet PO SCH (09:12)
[2017-02-16] MEDS: Cholecalciferol (D-3) 1,000 UNIT TABLET PO SCH (09:13)
[2017-02-16] MEDS: Diltiazem CD (24hr) 240 MG CAPSULE PO SCH (09:13)
[2017-02-16] MEDS: Furosemide 40 MG/4 ML VIAL IVP SCH (09:13)
[2017-02-16] MEDS: Insulin LISPRO 300 UNITS/3 ML VIAL SQ SCH ×2 (09:18→11:36)
[2017-02-16] MEDS: hydrALAZINE 25 MG TABLET PO SCH ×2 (09:21→15:10)
--- NOTE | 2017-02-16 11:35 | Discharge Summary ---
Date of Encounter: 02/16/17 Time of Encounter: 10:25 - Discharge Diagnosis (1) Acute on chronic diastolic (congestive) heart failure Priority: Primary Status: Acute (2) End-stage renal disease on hemodialysis Priority: Secondary Status: Acute (3) Anemia Priority: Secondary Status: Chronic Qualifiers: Anemia type: due to chronic kidney disease Chronic kidney disease stage: stage 4 (severe) Qualified Code(s): N18.4 - Chronic kidney disease, stage 4 ( severe); D63.1 - Anemia in chronic kidney disease (4) Diabetes mellitus Priority: Secondary Status: Chronic Qualifiers: Diabetes mellitus type: type 2 Diabetes mellitus complication status: with kidney complications Diabetes mellitus complication detail: with chronic kidney disease 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 insulin use: with usp use Chronic kidney disease stage: on chronic dialysis Qualified Code(s): E11.22 - Type 2 diabetes mellitus with diabetic chronic kidney disease; N18.6 - End stage renal disease; N18.6 - End stage renal disease; N18.6 - End stage renal disease; N18.6 - End stage renal disease; Z79.4 - half-way (current) use of insulin; Z79.4 - half-way (current) use of insulin; Z79.4 - half-way (current ) use of insulin; Z79.4 - intermediate teacher (current) use of insulin; Z99.2 - Dependence on renal dialysis; Z99.2 - Dependence on renal dialysis; Z99.2 - Dependence on renal dialysis; Z99.2 - Dependence on renal dialysis (5) Hyperkalemia Priority: Secondary Status: Resolved (6) Hypertension Priority: Secondary Status: Chronic Qualifiers: Hypertension type: essential hypertension Qualified Code(s): I10 - Essential (primary) hypertension (7) Pneumonia Priority: Secondary Status: Chronic Qualifiers: Pneumonia type: due to unspecified organism Laterality: unspecified laterality Lung location: unspecified part of lung Qualified Code(s): J18.9 - Pneumonia, unspecified organism - Discharge Medications Prescriptions: Tramadol HCl [Ultram] 50 mg PO QID PRN #20 tab PRN Reason: Moderate Pain Home Medications: Albuterol Sulfate [Albuterol Inhaler] 2 puff IH Q4HR PRN 12/18/14 [History] Aspirin Enteric Coated [Aspirin EC] 81 mg PO QAM 12/18/14 [History] Atorvastatin [Lipitor] 40 mg PO QPM 12/18/14 [History] Budesonide/Formoterol 160/4.5 [Symbicort] 2 puff IH BID 12/18/14 [History] Cholecalciferol (Vitamin D3) [Vitamin D3] 2,000 unit PO QAM 12/18/14 [History] Diltiazem CD (24hr) [Cardizem CD] 240 mg PO QAM 12/18/14 [History] Insulin Glargine,Hum.rec.anlog [Lantus Solostar] 26 unit SQ BID 12/18/14 [ History] Montelukast [Singulair] 10 mg PO QPM 12/18/14 [History] Ferrous Sulfate [Iron] 325 mg PO QAM 04/25/16 [History] Furosemide [Lasix] 40 mg PO QAM 04/25/16 [History] Vit A/Vit C/Vit E/Zinc/Copper [Preservision Areds Tablet] 1 tab PO BID 04/25/16 [History] Labetalol [Trandate] 100 mg PO TID #90 tablet 04/29/16 [Rx] hydrALAZINE [HydrALAZINE] 25 mg PO BID #60 tablet 04/29/16 [Rx] Darbepoetin [Aranesp] 100 mcg IJ Q2W 11/05/16 [History] Insulin LISPRO [Humalog Kwikpen U-100] 0 unit SQ BIDWM 11/05/16 [History] Loratadine [Allergy Relief] 10 mg PO DAILY 12/18/16 [History] Cephalexin [Keflex] 500 mg PO BID #14 capsule 02/09/17 [Rx] Tramadol HCl [Ultram] 50 mg PO QID PRN #20 tab 02/16/17 [Rx] Allergies/Adverse Reactions: 3 Allergy/AdvReac Type Severity Reaction Status Date / Time hydrocodone AdvReac Nausea Verified 11/09/16 23:53 Oxycodone [From Percocet] AdvReac Nausea Verified 11/09/16 23:53 propoxyphene [From Darvon] AdvReac Nausea Verified 11/09/16 23:53 Sulfa (Sulfonamide AdvReac Nausea Verified 11/09/16 23:53 Antibiotics) Date of admission: 02/12/17 18:15 Primary care physician: Polina Crawford, Consults: 02/13/17 08:50 Consult to Interventional Radiology [CONS] Routine Consulting Provider: Radiology Interventional Cols Reason for Consult: place tunneled dialysis catheter today Time Notified: 08:51 Call Completed: Yes 02/13/17 09:00 Consult to Dialysis [CONS] ONCE 02/16/17 08:30 Consult to Dialysis [CONS] ONCE Discharging clinician: Ned Starks Anticipated date of discharge: 02/16/17 - Patient Status Disposition: Home, Self-Care Condition: Good Functional capacity at discharge: independent ambulation Overall status at discharge: patient is progressing back to baseline - Discharge Instructions Instructions: Heart Failure (DC) Follow Up With: Polina Crawford MD [Primary Care Provider] - 02/19/17 2:00 pm () - Diet and Activity Activity: increase activity as tolerated, wear oxygen at all times Diet: diabetic diet, low fat, low cholesterol, low salt diet Hospital course: Ms. Bazan is a 71 year old female presented to the ER with complaints of shortness of breath. She has a history of chronic kidney disease stage V and congestive heart failure. She was evaluated by nephrology and recommended initiation of hemodialysis. She underwent placement of permanent dialysis catheter and began dialysis the next day. She has since been improving well and is now clinically stable for discharge home. 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 - Time Spent with Patient Total time spent providing and/or coordinating discharge services: Less than 30 minutes (25 min) - Constitutional Vitals: Temp Pulse Resp BP Pulse Ox 98.2 F 81 18 141/69 93 02/16/17 07:43 02/16/17 07:43 02/16/17 07:43 02/16/17 07:43 02/16/17 07:43 General appearance: Present: cooperative, A&O X 3, no acute distress, answers questions appropriately - Neck Neck exam general surgery: Present: supple, trachea midline. Absent: lymphadenopathy - Respiratory Respiratory exam: Present: CTAB. Absent: accessory muscle use, rales, rhonchi, wheezes - Cardiovascular Cardiovascular exam: Present: RRR, +S1, +S2. Absent: diastolic murmur, gallop, rubs, systolic murmur - GI/Abdominal GI/Abdominal exam: Present: normal bowel sounds, soft, no peritoneal signs. Absent: distended, tenderness - Extremities Exam Extremities exam: Present: warm, radial pulses palpable and symmetrical. Absent : calf tenderness, cyanotic, pedal edema
[2017-02-16] MEDS ORDERED: traMADol 50 MG TABLET PO PRN (14:59)
[2017-02-16 15:15] VITALS: BP 149/55
== END 2017-02-16 16:45 | disposition home or self-care (01) | DRG 291 ==
LOC: 2ANU 13:22 → EMEROO 13:22 → 2ANU 16:22
PROVIDERS: ADMIT Internal Medicine; ATTEND Internal Medicine
PROC: IRPERMA (2017-02-13 12:00)

== ENCOUNTER 2017-06-01 17:11 | Observation (INO) ==
--- NOTE | 2017-06-01 17:18 | Emergency Department Note ---
Disposition Clinical Impression: Chest pain of unknown etiology, Angina pectoris associated with type 2 diabetes mellitus Disposition: Admitted As Inpatient Condition: Fair General Adult HPI - General Stated complaint: C/P Time Seen by Provider: 06/01/17 17:15 - Related Data Home Medications Medication Instructions Recorded Confirmed Albuterol Sulfate [Albuterol 2 puff IH Q4HR PRN 12/18/14 06/01/17 Inhaler] Aspirin Enteric Coated [Aspirin EC] 81 mg PO QAM 12/18/14 06/01/17 Atorvastatin [Lipitor] 40 mg PO QPM 12/18/14 06/01/17 Budesonide/Formoterol 160/4.5 2 puff IH BID 12/18/14 06/01/17 [Symbicort] Cholecalciferol (Vitamin D3) 2,000 unit PO QAM 12/18/14 06/01/17 [Vitamin D3] Diltiazem CD (24hr) [Cardizem CD] 240 mg PO QAM 12/18/14 06/01/17 Insulin Glargine,Hum.rec.anlog 7 unit SQ BID 12/18/14 06/01/17 [Lantus Solostar] Montelukast [Singulair] 10 mg PO QPM 12/18/14 06/01/17 Furosemide [Lasix] 40 mg PO QAM 04/25/16 06/01/17 Vit A/Vit C/Vit E/Zinc/Copper 1 tab PO BID 04/25/16 06/01/17 [Preservision Areds Tablet] Darbepoetin [Aranesp] 100 mcg IJ Q2W 11/05/16 06/01/17 Insulin LISPRO [Humalog Kwikpen 7 unit SQ BIDWM 11/05/16 06/01/17 U-100] Loratadine [Allergy Relief] 10 mg PO DAILY 12/18/16 06/01/17 Glucagon,Human Recombinant 1 mg SQ ONCE PRN 06/01/17 06/01/17 [Glucagon Emergency Kit] Sevelamer [Renvela] 1,600 mg PO TIDWM 06/01/17 06/01/17 Previous Rx's Medication Instructions Recorded Labetalol [Trandate] 100 mg PO TID #90 tablet 04/29/16 Allergies Allergy/AdvReac Type Severity Reaction Status Date / Time hydrocodone AdvReac Nausea Verified 11/09/16 23:53 Oxycodone [From Percocet] AdvReac Nausea Verified 11/09/16 23:53 propoxyphene [From Darvon] AdvReac Nausea Verified 11/09/16 23:53 Sulfa (Sulfonamide AdvReac Nausea Verified 11/09/16 23:53 Antibiotics) Past Medical History - Past Medical History Medical history: Reports: arthritis, asthma, CHF, diabetes, hyperlipidemia, hypertension, kidney stones, renal disease Surgical history: Reports: , knee replacement Psychiatric history: Reports: no psych history - Social History Smoking Status: Never smoker Smokeless Tobacco Status: No Alcohol use: Reports: rarely, occasionally Drug use: Reports: none Course Vital Signs Temperature 98.5 F 06/01/17 17:17 Pulse Rate 76 06/01/17 17:17 Respiratory Rate 16 06/01/17 17:17 Blood Pressure 140/45 06/01/17 17:17 O2 Sat by Pulse Oximetry 90 06/01/17 17:17 Temperature 98.3 F 06/01/17 20:27 Pulse Rate 69 06/01/17 20:27 Respiratory Rate 18 06/01/17 20:27 Blood Pressure 106/67 06/01/17 20:27 O2 Sat by Pulse Oximetry 89 06/01/17 20:27 Oxygen Delivery Oxygen Delivery Nasal Cannula Medical Decision Making - Lab Data Result diagrams: 06/01/17 18:27 06/01/17 17:50 Lab Results 06/01/17 06/01/17 06/01/17 Range/Units 17:50 17:50 18:27 WBC 11.2 H (4.3-11.1) K/mcL RBC 3.49 L (3.82-4.97) M/mcL Hgb 10.0 L (11.5-15.4) g/dL Hct 32.3 L (35.3-44.9) % MCV 92.6 (83.0-100.0) fL MCH 28.7 (28.0-33.3) pg MCHC 31.0 L (31.6-35.5) g/dL RDW 15.6 H (11.5-14.5) % Plt Count 239 (140-400) K/mcL MPV 10.0 (9.4-12.4) fL Immature Gran % 0.6 (0-4) % Seg Neutrophils % 80.6 % Lymphocytes % 9.3 % Monocytes % 7.4 % Eosinophils % 1.9 % Basophils % 0.2 % Neutrophils # 9.0 H (1.6-8.9) K/mcL Lymphocytes # 1.0 (0.6-4.6) K/mcL Monocytes # 0.8 (0.0-1.3) K/mcL Eosinophils # 0.2 (0.0-0.6) K/mcL Basophils # 0.0 (0.0-0.2) K/mcL Nucleated RBCs/100 WBC 0.2 H (0) /100 WBC Sodium 135 L (136-145) mEq/L Potassium 3.1 L (3.5-5.1) mEq/L Chloride 99 (98-107) mEq/L Carbon Dioxide 27 (23-29) mEq/L BUN 11 (8-23) mg/dL Creatinine 1.81 H (0.60-1.20) mg/dL Est GFR ( Amer) 33 L (> 60) Est GFR (Non-Af Amer) 27 L (> 60) BUN/Creatinine Ratio 6 (6-26) Glucose 124 H (70-105) mg/dL Calculated Osmolality 281 (280-300) Calcium 8.9 (8.6-10.3) mg/dL Troponin I < 0.03 (< 0.04) ng/mL Attestation Statement - Attestation Attestation: I examined this patient and my medical decision-making was reviewed with the Resident Physician. I agree with the documented findings, disposition and treatment plan as described except to the extent set forth below. [id number] time provided Patient arrives after having her regular run of dialysis. She states she developed chest pain during the dialysis that has now resolved. She appears in no acute distress on exam. She also complains of some low back pain over the past several days
[2017-06-01] MEDS ORDERED: Aspirin 81 MG TAB.CHEW PO ONE (17:36)
--- NOTE | 2017-06-01 17:36 | Emergency Department Note ---
Disposition Clinical Impression: Chest pain of unknown etiology, Angina pectoris associated with type 2 diabetes mellitus Disposition: Admitted As Inpatient Condition: Fair Forms: ED Satisfaction Letter Time of Disposition: 20:51 Chest Pain HPI - General Chief Complaint: ED Chest Pain Stated Complaint: C/P Time Seen by Provider: 06/01/17 17:15 Vital Signs Reviewed: Yes Nursing Notes Reviewed: Yes - History of Present Illness HPI Narrative: 71-year-old female complains of chest pain during dialysis within the past hour. Patient states the pain is mid substernal without radiation. Patient states pain is dull at 6/10. Patient states that she was otherwise fine prior to the onset of her dialysis. 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 - Related Data Home Medications Medication Instructions Recorded Confirmed Albuterol Sulfate [Albuterol 2 puff IH Q4HR PRN 12/18/14 02/12/17 Inhaler] Aspirin Enteric Coated [Aspirin EC] 81 mg PO QAM 12/18/14 02/12/17 Atorvastatin [Lipitor] 40 mg PO QPM 12/18/14 02/12/17 Budesonide/Formoterol 160/4.5 2 puff IH BID 12/18/14 02/12/17 [Symbicort] Cholecalciferol (Vitamin D3) 2,000 unit PO QAM 12/18/14 02/12/17 [Vitamin D3] Diltiazem CD (24hr) [Cardizem CD] 240 mg PO QAM 12/18/14 02/12/17 Insulin Glargine,Hum.rec.anlog 26 unit SQ BID 12/18/14 02/12/17 [Lantus Solostar] Montelukast [Singulair] 10 mg PO QPM 12/18/14 02/12/17 Furosemide [Lasix] 40 mg PO QAM 04/25/16 02/12/17 Vit A/Vit C/Vit E/Zinc/Copper 1 tab PO BID 04/25/16 02/12/17 [Preservision Areds Tablet] Darbepoetin [Aranesp] 100 mcg IJ Q2W 11/05/16 02/12/17 Insulin LISPRO [Humalog Kwikpen 0 unit SQ BIDWM 11/05/16 02/12/17 U-100] Loratadine [Allergy Relief] 10 mg PO DAILY 12/18/16 02/12/17 Glucagon,Human Recombinant 1 mg SQ ONCE PRN 06/01/17 06/01/17 [Glucagon Emergency Kit] Sevelamer [Renvela] 1,600 mg PO TIDWM 06/01/17 06/01/17 Previous Rx's Medication Instructions Recorded Labetalol [Trandate] 100 mg PO TID #90 tablet 04/29/16 Allergies Allergy/AdvReac Type Severity Reaction Status Date / Time hydrocodone AdvReac Nausea Verified 11/09/16 23:53 Oxycodone [From Percocet] AdvReac Nausea Verified 11/09/16 23:53 propoxyphene [From Darvon] AdvReac Nausea Verified 11/09/16 23:53 Sulfa (Sulfonamide AdvReac Nausea Verified 11/09/16 23:53 Antibiotics) All systems ED: reviewed and negative except as stated. Review of Systems: As Per HPI Constitutional: Denies: fever, chills, weakness Eyes: Denies: vision change ENT ED: Denies: congestion Cardiovascular: Reports: chest pain. Denies: palpitations, dyspnea on exertion Respiratory: Denies: cough, dyspnea Gastrointestinal: Denies: abdominal pain, nausea, vomiting, diarrhea Chest Pain PMH - Past Medical History Medical history: Reports: arthritis, asthma, CHF, diabetes, hyperlipidemia, hypertension, kidney stones, renal disease Surgical history: Reports: , knee replacement Psychiatric history: Reports: no psych history - Social History Smoking Status: Never smoker Alcohol use: Reports: rarely, occasionally Drug use: Reports: none Physical Exam Vital Signs Temperature 98.5 F 06/01/17 17:17 Pulse Rate 76 06/01/17 17:17 Respiratory Rate 16 06/01/17 17:17 Blood Pressure 140/45 06/01/17 17:17 O2 Sat by Pulse Oximetry 90 06/01/17 17:17 Temperature 98.5 F 06/01/17 17:17 Pulse Rate 76 06/01/17 17:17 Respiratory Rate 16 06/01/17 17:17 Blood Pressure 140/45 06/01/17 17:17 O2 Sat by Pulse Oximetry 90 06/01/17 17:17 Oxygen Delivery Oxygen Delivery Room Air CONSTITUTIONAL: Well-appearing; well-nourished; A&O X 3, in mild distress secondary to her chest pain HEAD: Normocephalic; atraumatic EYES: PERRL, no scleral icterus NOSE: The nose is normal in appearance without rhinorrhea NECK: No JVD or distended neck veins Chest: Midline sternal tenderness to palpation, patient had dialysis for right chest wall that is clean upon inspection and no erythema or purulence. RESP: Normal chest excursion with respiration; breath sounds clear and equal bilaterally; no wheezes, rhonchi, or rales CARD: Regular rhythm, without murmurs, rub or gallop ABD: Non-distended; non-tender, soft, without rigidity, rebound or guarding,no pulsatile mass CHEST: No pain with palpation SKIN: Normal for age and race; warm and dry without diaphoresis ; no apparent lesions EXTREMITIES: Pulses are 2 plus and equal times 4 extremities, no peripheral edema or calf muscle pain Course - Reevaluation(s) Reevaluation #1: Patient's labs of resolved and show no acute elevations of troponin Time: 18:46 Chest Pain - MDM Narrative Medical decision making narrative: Patient acute new onset of chest pain during dialysis concerning for ACS/CA. Patient has a history of CHF but completed dialysis today. Patient is a Heartscore of 6 Patient's lab work is negative for abdomen hours on chest x-ray and patient's troponin was negative. Patient's EKG is not ischemic. Current recommendation is admission for ACS rule out an trending troponins. Patient understands and agrees to treatment plan for admission. Patient received aspirin. Patient is comfortable and tolerating by mouth intake. Currently pain-free Patient is accepted for admission by Dr. Maradiaga the hospitalist in stable condition. - Lab Data Lab results reviewed: Yes I reviewed the patient's lab results. Lab results narrative: Short CBC 06/01/17 Range/Units 18:27 WBC 11.2 H (4.3-11.1) K/mcL Hgb 10.0 L (11.5-15.4) g/dL Hct 32.3 L (35.3-44.9) % Plt Count 239 (140-400) K/mcL Neutrophils # 9.0 H (1.6-8.9) K/mcL BMP 06/01/17 Range/Units 17:50 Sodium 135 L (136-145) mEq/L Potassium 3.1 L (3.5-5.1) mEq/L Chloride 99 (98-107) mEq/L Carbon Dioxide 27 (23-29) mEq/L BUN 11 (8-23) mg/dL Creatinine 1.81 H (0.60-1.20) mg/dL Glucose 124 H (70-105) mg/dL Calcium 8.9 (8.6-10.3) mg/dL Cardiac Enzymes 06/01/17 Range/Units 17:50 Troponin I < 0.03 (< 0.04) ng/mL - Radiology Data Radiology results reviewed: Yes I reviewed the patient's radiology results. Chest X-Ray 06/01/17 17:16 IMPRESSION: 1. Cardiomegaly with pulmonary vascular congestion and small bilateral pleural effusions consistent with volume overload. Overall, findings are not substantially changed since 02/12/2017. 2. New right-sided dialysis catheter with the tip in the region of the superior cavoatrial junction. D/ / Alex Palacios / Alex Palacios Interpreting Provider: Alex Palacios Heart Score - Score History: Moderately Suspicious EKG: Non Specific repolarisation Disturbance Age: Greater than 65 Risk Factors: Equal/Greater than 3 risk factor or history of atherosclerotic disease Troponin: Less than normal limit HEART Score Total: 6
[2017-06-01 18:13] LABS: Calcium 8.9 mg/dL (8.6-10.3); Potassium 3.1 mEq/L (3.5-5.1)
[2017-06-01 18:33] LABS: Basophils % 0.2 %; Eosinophils # 0.2 K/mcL (0.0-0.6); Eosinophils % 1.9 %; Hematocrit 32.3 % (35.3-44.9); Immature Granulocytes % 0.6 % (0-4); Lymphocytes % 9.3 %; Mean Corpuscular Hemoglobin 28.7 pg (28.0-33.3); Mean Corpuscular Volume 92.6 fL (83.0-100.0); Monocytes # 0.8 K/mcL (0.0-1.3); Monocytes % 7.4 %; Nucleated Red Blood Cells 0.2 /100 WBC (0); Platelet Count 239 K/mcL (140-400); Red Blood Count 3.49 M/mcL (3.82-4.97); Red Cell Distribution Width 15.6 % (11.5-14.5); Segmented Neutrophils % 80.6 %
--- NOTE | 2017-06-01 21:04 | Internal Med History&Physical ---
<Solo Bradley - Last Filed: 06/01/17 22:27> Date of Encounter: 06/01/17 Time of Encounter: 08:45 Assessment and Plan (1) Chest pain Current visit: Yes Status: Acute Chest pain reproducible on palpation Most likely musculoskeletal in etiology, though has significant risk factors for CT EKG unchanged from January 2017 Initial troponin < 0.03, will trend x3 Ordered Echo and stress test Qualifiers: Chest pain type: unspecified Qualified Code(s): R07.9 - Chest pain, unspecified (2) Chronic kidney disease (CKD), stage IV (severe) Current visit: No Status: Acute Dialysis dependent w/ scheduled dialysis MWF Cr 1.81, which is significantly better than baseline Will monitor (3) Diabetes mellitus Current visit: Yes Status: Chronic Controlled Will continue home insulin regimen Qualifiers: Diabetes mellitus type: type 2 Diabetes mellitus complication status: with kidney complications Diabetes mellitus complication detail: with chronic kidney disease Diabetes mellitus 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 Chronic kidney disease stage: on chronic dialysis Qualified Code(s): E11.22 - Type 2 diabetes mellitus with diabetic chronic kidney disease; N18.6 - End stage renal disease; Z99.2 - Dependence on renal dialysis; Z99.2 - Dependence on renal dialysis; Z99.2 - Dependence on renal dialysis; N18.6 - End stage renal disease; N18.6 - End stage renal disease; N18.6 - End stage renal disease ; Z79.4 - [facility] (current) use of insulin; Z79.4 - [facility] (current) use of insulin; Z79.4 - [facility] (current) use of insulin; Z79.4 - [facility] ( current) use of insulin; Z99.2 - Dependence on renal dialysis (4) Hypertension Current visit: Yes Status: Chronic Controlled Will monitor Will start home medications Qualifiers: Hypertension type: essential hypertension Qualified Code(s): I10 - Essential (primary) hypertension (5) Congestive heart failure Current visit: Yes Status: Chronic CXR showed relatively unchanged fluid overload/effusion from January 2017 Patient not significantly symptomatic currently Will check echo Qualifiers: Congestive heart failure type: diastolic Congestive heart failure chronicity: chronic Qualified Code(s): I50.32 - Chronic diastolic (congestive ) heart failure (6) Anemia Current visit: Yes Status: Chronic Hgb 10.0 Higher than baseline Will monitor Qualifiers: Anemia type: due to chronic kidney disease Chronic kidney disease stage: stage 4 (severe) Qualified Code(s): N18.4 - Chronic kidney disease, stage 4 ( severe); D63.1 - Anemia in chronic kidney disease (7) HLD (hyperlipidemia) Current visit: Yes Status: Acute Continue home statin Qualifiers: Hyperlipidemia type: unspecified Qualified Code(s): E78.5 - Hyperlipidemia , unspecified (8) Asthma Current visit: Yes Status: Chronic Without exacerbation Continue home medications Qualifiers: Asthma severity: unspecified severity Asthma persistence: unspecified Asthma complication type: uncomplicated Qualified Code(s): J45.909 - Unspecified asthma, uncomplicated (9) DVT prophylaxis Current visit: Yes Status: Acute Heparin Subq q12h Internal Medicine - H&P: HPI Chief complaint: Chest Pain Admitted From: Home Plans for Post Hospital Care: Home History of present illness: Ms. Bazan is a 71 year old female who presented from her dialysis appointment. Per the patient, the pain had started that morning and had not changed throughout the day. She describes it as "sore" in quality and 4-5/10 in intensity. It is located in the center of her chest and does not radiate. She states that it is reproducible with palpation of her chest. It is not exacerbated by activity. She denies ever having this pain in the past. She admits to nausea, but this started in the 5 minutes before I saw her and she ascribes it to motion sickness from riding in the bed up to the room. She denies SOB, palpitations, and vomiting. She also describes a mild headache which started the previous morning. It was not initially improved with Tylenol, but another dose this morning did help. She says that this type of headache is not new, but that they normally do not last this long. PMH is significant for CKD on MWF dialysis, diabetes mellitus type II on insulin , CHF, HLD, and HTN. She believes she had a heart catheterization in the past, but she is unsure of the context. She admits to 1/month alcohol use and denies tobacco and drug use. Past Med Surg Social Fam HX - Past Medical History Medical history: arthritis, asthma, CHF, diabetes, hyperlipidemia, hypertension , kidney stones, renal disease Psychiatric history: no psych history - Past Surgical History Surgical History: , knee replacement - Social History Smoking Status: Never smoker Smokeless Tobacco Status: No Alcohol use: rarely, occasionally Drug use: none - Family History Mother Adopted: No Family Member Ethnicity: Non- Living Status: Hx Family Cardiac Disorders: Yes (CHF) Hx Family Respiratory Disorders: No Hx Family Cancer: Yes Hx Family GI Disorders: No Hx Family Endocrine Disorder: No Hx Family Neuromuscular Disorders: No Hx Family Neurologic Disorders: No Hx Family HEENT Disorders: No Hx Family Autoimmune Disorders: No Internal Medicine - H&P: Meds Albuterol Sulfate [Albuterol Inhaler] 2 puff IH Q4HR PRN 12/18/14 [History] Aspirin Enteric Coated [Aspirin EC] 81 mg PO QAM 12/18/14 [History] Atorvastatin [Lipitor] 40 mg PO QPM 12/18/14 [History] Budesonide/Formoterol 160/4.5 [Symbicort] 2 puff IH BID 12/18/14 [History] Cholecalciferol (Vitamin D3) [Vitamin D3] 2,000 unit PO QAM 12/18/14 [History] Diltiazem CD (24hr) [Cardizem CD] 240 mg PO QAM 12/18/14 [History] Insulin Glargine,Hum.rec.anlog [Lantus Solostar] 7 unit SQ BID 12/18/14 [History ] Montelukast [Singulair] 10 mg PO QPM 12/18/14 [History] Furosemide [Lasix] 40 mg PO QAM 04/25/16 [History] Vit A/Vit C/Vit E/Zinc/Copper [Preservision Areds Tablet] 1 tab PO BID 04/25/16 [History] Labetalol [Trandate] 100 mg PO TID #90 tablet 04/29/16 [Rx] Darbepoetin [Aranesp] 100 mcg IJ Q2W 11/05/16 [History] Insulin LISPRO [Humalog Kwikpen U-100] 7 unit SQ BIDWM 11/05/16 [History] Loratadine [Allergy Relief] 10 mg PO DAILY 12/18/16 [History] Glucagon,Human Recombinant [Glucagon Emergency Kit] 1 mg SQ ONCE PRN 06/01/17 [ History] Sevelamer [Renvela] 1,600 mg PO TIDWM 06/01/17 [History] 3 Allergy/AdvReac Type Severity Reaction Status Date / Time hydrocodone AdvReac Nausea Verified 11/09/16 23:53 Oxycodone [From Percocet] AdvReac Nausea Verified 11/09/16 23:53 propoxyphene [From Darvon] AdvReac Nausea Verified 11/09/16 23:53 Sulfa (Sulfonamide AdvReac Nausea Verified 11/09/16 23:53 Antibiotics) All Systems PM: A 10-system review of systems was performed and is negative for pertinent findings except as documented above in the HPI. Review of systems: As per HPI - Constitutional Vitals: Temp Pulse Resp BP Pulse Ox 98.3 F 69 18 106/67 89 06/01/17 20:27 06/01/17 20:27 06/01/17 20:27 06/01/17 20:27 06/01/17 20:27 General appearance: Present: cooperative, A&O X 3, pleasant, obese, answers questions appropriately Exam: Sitting on the edge of the bed, feeling mildly nauseated - Head Head exam: Present: atraumatic, normal inspection, normocephalic - ENT ENT exam: Present: mucous membranes moist - Neck Neck exam general surgery: Present: trachea midline - Respiratory Respiratory exam: Present: CTAB. Absent: accessory muscle use, respiratory distress - Cardiovascular Cardiovascular exam: Present: RRR, +S1, +S2 - GI/Abdominal GI/Abdominal exam: Present: soft, no peritoneal signs. Absent: tenderness - Extremities Exam Additional comments: 1+ pitting edema to the mid del cid - Neurological Exam Neurological exam: Present: alert, oriented X3 - Psychiatric Psychiatric exam: Present: normal affect, normal mood. Absent: agitated, anxious - Skin Skin exam: Present: dry, warm Internal Med - H&P Results - Labs CBC & Chem 7: 06/01/17 18:27 06/01/17 17:50 <Noman Padilla - Last Filed: 06/02/17 01:37> Date of Encounter: 06/02/17 Time of Encounter: 00:10 - Constitutional Vitals: Temp Pulse Resp BP Pulse Ox 97.9 F 87 18 128/57 94 06/02/17 01:14 06/02/17 01:14 06/02/17 01:14 06/02/17 01:14 06/02/17 01:14 General appearance: Present: cooperative, A&O X 3, pleasant, no acute distress - Eye Eye exam: Present: EOMI, PERRL. Absent: scleral icterus Pupils: Present: normal accommodation - Respiratory Respiratory exam: Present: CTAB. Absent: rales, rhonchi, wheezes - Cardiovascular Cardiovascular exam: Present: RRR, +S1, +S2. Absent: diastolic murmur, systolic murmur - GI/Abdominal GI/Abdominal exam: Present: soft. Absent: tenderness - Extremities Exam Extremities exam: Present: full ROM, normal capillary refill, warm. Absent: calf tenderness, pedal edema - Back Exam Back exam: Absent: CVA tenderness (L), CVA tenderness (R) Internal Med - H&P Results - Labs CBC & Chem 7: 06/01/17 18:27 06/01/17 17:50 Labs: Cardiac Enzymes 06/01/17 Range/Units 23:58 Troponin I < 0.03 (< 0.04) ng/mL - EKG Data -: EKG Interpreted by Myself - EKG Data EKG comments: 06/02/17 01:30 NSR; no acute changes - Diagnostic Studies Chest x-ray Status: image reviewed by me (cardiomegaly; negative) - Attending Attestation I discussed the patient [place], PMH, ROS, lab data, and exam findings with Dr. Bradley. I then saw and examined patient independently as well. Patient reports chest wall pain, and it is reproducible on palpation. She denies any history of anginal type chest pain. She ambulates and climbs stairs without dyspnea. She has no exertional dyspnea or chest pain. She developed chest wall pain today during dialysis and has had it intermittently and is able to reproduce it. Patient does have risk factors for CAD and has had stress test and LHC in the past -- negative for both. We will cycle troponins and EKG's. 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 She does not wish to have this done inpatient. Given the musculoskeletal nature of her chest pain , I agree that this can be done outpatient. If, however, she has EKG changes and/or + troponins, we will proceed with inpatient work-up. Other than my comments above and noted exam findings, I agree with Dr. Bradley' s assessment and plan.
[2017-06-01] MEDS ORDERED: Acetaminophen 325 MG TABLET PO PRN (21:31)
[2017-06-01] MEDS ORDERED: Naloxone 0.4 MG/ML INJ IVP PRN (21:31)
[2017-06-01] MEDS ORDERED: Ondansetron 4 MG/2 ML VIAL IVP PRN (22:08)
[2017-06-02] MEDS ORDERED: *HR* Heparin 5,000 UNIT/ML VIAL SQ SCH (06:00)
[2017-06-02 06:05] LABS: Hematocrit 31.5 % (35.3-44.9); Hemoglobin 9.7 g/dL (11.5-15.4); Mean Corpuscular HGB Conc 30.8 g/dL (31.6-35.5); Mean Corpuscular Hemoglobin 28.5 pg (28.0-33.3); Mean Corpuscular Volume 92.6 fL (83.0-100.0); Mean Platelet Volume 10.7 fL (9.4-12.4); Platelet Count 172 K/mcL (140-400); Red Cell Distribution Width 15.9 % (11.5-14.5)
[2017-06-02 06:21] LABS: Calcium 8.8 mg/dL (8.6-10.3); Potassium 3.5 mEq/L (3.5-5.1)
[2017-06-02] MEDS ORDERED: *HR* Dextrose 50 % in Water (Syg) 50 ML SYRINGE IVP PRN (07:54)
[2017-06-02] MEDS ORDERED: Dextrose Gel 15 GM/37.5 ML TUBE PO PRN ×2 (07:54)
[2017-06-02] MEDS ORDERED: D5% in Water 1,000 ML IVC PRN (07:54)
[2017-06-02] MEDS ORDERED: Insulin LISPRO 300 UNITS/3 ML VIAL SQ SCH (08:00)
[2017-06-02] MEDS ORDERED: NON-FORMULARY MEDICATION 1 EACH EACH (Insulin Glargine,Hum.Rec.Anlog [Lantus Solostar] 7 U SQ SCH (09:00)
[2017-06-02] MEDS ORDERED: Furosemide 20 MG TABLET PO SCH (09:00)
[2017-06-02] MEDS ORDERED: Insulin DETEMIR 100 UNIT/ML X5UNITS SQ SCH (09:00)
[2017-06-02] MEDS ORDERED: Aspirin Enteric Coated 81 MG Tablet PO SCH (09:00)
[2017-06-02] MEDS ORDERED: Diltiazem CD (24hr) 240 MG CAPSULE PO SCH (09:00)
[2017-06-02] MEDS ORDERED: Budesonide/Formoterol 160/4.5 MDI IH SCH (10:00)
[2017-06-02 11:03] VITALS: BP 121/64
--- NOTE | 2017-06-02 13:08 | Discharge Summary ---
Date of Encounter: 06/02/17 Time of Encounter: 13:05 - Discharge Diagnosis (1) Chest pain Priority: Primary Status: Resolved Qualifiers: Chest pain type: unspecified Qualified Code(s): R07.9 - Chest pain, unspecified (2) DVT prophylaxis Priority: Secondary Status: Acute (3) HLD (hyperlipidemia) Priority: Secondary Status: Chronic Qualifiers: Hyperlipidemia type: unspecified Qualified Code(s): E78.5 - Hyperlipidemia , unspecified (4) Anemia Priority: Secondary Status: Chronic Qualifiers: Anemia type: due to chronic kidney disease Chronic kidney disease stage: stage 4 (severe) Qualified Code(s): N18.4 - Chronic kidney disease, stage 4 ( severe); D63.1 - Anemia in chronic kidney disease (5) Congestive heart failure Priority: Secondary Status: Chronic Qualifiers: Congestive heart failure type: diastolic Congestive heart failure chronicity: chronic Qualified Code(s): I50.32 - Chronic diastolic (congestive ) heart failure (6) Diabetes mellitus Priority: Secondary Status: Chronic Qualifiers: Diabetes mellitus type: type 2 Diabetes mellitus complication status: with kidney complications Diabetes mellitus complication detail: with chronic kidney disease 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 Chronic kidney disease stage: on chronic dialysis Qualified Code(s): E11.22 - Type 2 diabetes mellitus with diabetic chronic kidney disease; N18.6 - End stage renal disease; Z99.2 - Dependence on renal dialysis; Z99.2 - Dependence on renal dialysis; Z99.2 - Dependence on renal dialysis; N18.6 - End stage renal disease; N18.6 - End stage renal disease; N18.6 - End stage renal disease ; Z79.4 - alf (current) use of insulin; 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; Z79.4 - alf (current) use of insulin; Z79.4 - alf ( current) use of insulin; Z99.2 - Dependence on renal dialysis (7) End-stage renal disease on hemodialysis Priority: Secondary Status: Acute - Discharge Medications Home Medications: Albuterol Sulfate [Albuterol Inhaler] 2 puff IH Q4HR PRN 12/18/14 [History] Aspirin Enteric Coated [Aspirin EC] 81 mg PO QAM 12/18/14 [History] Atorvastatin [Lipitor] 40 mg PO QPM 12/18/14 [History] Budesonide/Formoterol 160/4.5 [Symbicort] 2 puff IH BID 12/18/14 [History] Cholecalciferol (Vitamin D3) [Vitamin D3] 2,000 unit PO QAM 12/18/14 [History] Diltiazem CD (24hr) [Cardizem CD] 240 mg PO QAM 12/18/14 [History] Insulin Glargine,Hum.rec.anlog [Lantus Solostar] 7 unit SQ BID 12/18/14 [History ] Montelukast [Singulair] 10 mg PO QPM 12/18/14 [History] Furosemide [Lasix] 40 mg PO QAM 04/25/16 [History] Vit A/Vit C/Vit E/Zinc/Copper [Preservision Areds Tablet] 1 tab PO BID 04/25/16 [History] Labetalol [Trandate] 100 mg PO TID #90 tablet 04/29/16 [Rx] Darbepoetin [Aranesp] 100 mcg IJ Q2W 11/05/16 [History] Insulin LISPRO [Humalog Kwikpen U-100] 7 unit SQ BIDWM 11/05/16 [History] Loratadine [Allergy Relief] 10 mg PO DAILY 12/18/16 [History] Glucagon,Human Recombinant [Glucagon Emergency Kit] 1 mg SQ ONCE PRN 06/01/17 [ History] Sevelamer [Renvela] 1,600 mg PO TIDWM 06/01/17 [History] Allergies/Adverse Reactions: 3 Allergy/AdvReac Type Severity Reaction Status Date / Time hydrocodone AdvReac Nausea Verified 11/09/16 23:53 Oxycodone [From Percocet] AdvReac Nausea Verified 11/09/16 23:53 propoxyphene [From Darvon] AdvReac Nausea Verified 11/09/16 23:53 Sulfa (Sulfonamide AdvReac Nausea Verified 11/09/16 23:53 Antibiotics) Procedures/tests Complete & Pending: Procedures Performed prior 72 hours Category Date Time Status EV echocardiogram Routine Y 06/02/17 22:08 Completed Date of admission: 06/01/17 19:34 Primary care physician: Polina Crawford, Discharging clinician: Nina Guillermo Anticipated date of discharge: 06/02/17 - Patient Status Disposition: Home, Self-Care Condition: Good Functional capacity at discharge: independent ambulation Overall status at discharge: patient is back to baseline - Discharge Instructions Follow Up With: Polina Crawford MD [Primary Care Provider] - 06/09/17 2:00 pm (Please follow up as schedule) Forms: ED Satisfaction Letter Additional Instructions: Please follow up with your primary care physician and cardiology within one week after your discharge from the hospital. Please continue your home medications as prescribed by your primary care physician. Continue hemodialysis as per your primary geography department chair. Seek medical help immediately if chest pain occurs - Diet and Activity Activity: resume usual activities as tolerated Diet: diabetic diet, low fat, low cholesterol, low salt diet Hospital course: Ms. Bazan is a 71 year old female with PMH of CAD, CHF, ESRD on HD, DM, HLD, obesity who was admitted for evaluation of chest pain. Pt had negative serial troponin and complete resolution of her chest pain since hospitalization. She wishes to follow up with cardiology as outpatient for a stress test if needed. At this time she is hemodynamically stable and denies any discomfort. She will be discharged to home with follow up with cardiology and PCP. - Time Spent with Patient Total time spent providing and/or coordinating discharge services: Less than 30 minutes - Constitutional Vitals: Temp Pulse Resp BP Pulse Ox 97.3 F L 76 16 121/64 91 06/02/17 10:55 06/02/17 10:55 06/02/17 10:55 06/02/17 10:55 06/02/17 10:55 General appearance: Present: cooperative, A&O X 3, pleasant, no acute distress, obese - Head Head exam: Present: atraumatic, normocephalic - Respiratory Respiratory exam: Present: CTAB. Absent: accessory muscle use, rales, rhonchi, wheezes - Cardiovascular Cardiovascular exam: Present: RRR, +S1, +S2. Absent: diastolic murmur, gallop, rubs, systolic murmur - GI/Abdominal GI/Abdominal exam: Present: normal bowel sounds, soft, no peritoneal signs. Absent: distended, tenderness - Extremities Exam Extremities exam: Present: warm, radial pulses palpable and symmetrical. Absent : calf tenderness - Neurological Exam Neurological exam: Present: alert, oriented X3, no focal deficits. Absent: pronater drift, facial droop, speech deficit - Psychiatric Psychiatric exam: Present: normal affect, normal mood
--- NOTE | 2017-06-02 20:50 | Electrocardiograph Report ---
[place] [id number] Test Date: 2017-06-01 Pat Name: Ryland Bazan Department: 104 Room: 2A23 Gender: F Stope Miner: TRINA : 1945 Requested By: Nicola Kohler Order Number: [id number] Reading MD: Ever Rowan MD Measurements Intervals [place] Rate: 75 P: 37 ID: [id number] QRS: -7 QRSD: 114 T: 72 QT: 403 QTc: 432 Interpretive Statements SINUS RHYTHM Poor R wave progression BASELINE ARTIFACT Electronically Signed On 06-02-2017 20:49:17 EST by Ever Rowan MD
== END 2017-06-02 13:58 | disposition home or self-care (01) ==
LOC: EMEROO 17:11 → 2ANU 17:11
PROVIDERS: ADMIT Pediatrics; ATTEND Internal Medicine